=== PATIENT | female | born 1950 | race Caucasian/White ===

== ENCOUNTER 2017-04-08 08:28 | Emergency (ER) | payer OTHER, MEDICAID ==
[2017-04-08 08:34] VITALS: BP 147/71; BMI 27.3
--- NOTE | 2017-04-08 08:45 | DR.GENAD ---
HPI - PCP Primary Care Physician: none - HPI Comment HPI Comment: FELL LAST NIGHT OFF HER BED. MENTALLY CHALLENGE. DENIES FEVER. WAS NOT SICK LAST NIGHT. SLIGHT DIZZINESS WHEN SHE FELL. PAIN IN HER FOOT CAUSES PROBLEM WALKING. - Complaint/Symptoms Chief Complaint Doctors Comments: PAIN RIGHT LEG AND FOOT. FELL. SLIGHT DIZZINESS. Chief Complaint:: Right leg pain after a fall lastnight pt leg is red and swollen - Nurses notes reviewed Nurses Notes Review: Yes - Source History Provided: Patient - Mode of Arrival Mode of Arrival: EMS - Timing Onset of Chief Complaint: 04/07/17 Came on: Suddenly - Duration Duration: Constant Duration: Hours - Severity Severity: Moderate PMH - PMH Past Medical History: Yes Past Medical History: Anemia, Depression, GERD, Hypertension, Hyperthyroidism, Hypothyroidism Past Surgical History: Yes Surgical History: Hysterectomy, Mastectomy - Family History History of Family Medical Conditions: Yes Family Medical History: Cancer, Hypertension - Social History Does patient currently use any type of tobacco product: No Have you used tobacco products in the last 12 months: No Type of Tobacco Use: None Does any household member use tobacco: No Alcohol Use: None Do you use any recreational Drugs:: No Lives With: Family Lives Where: Home - infectious screening In the last 2 months have you had wt loss of >10#?: NO Have you had fever, night sweats or hemotysis?: No Have you traveled outside the country in the last 6 months?: No Isolation: Standard ROS - Review of Systems Constitutional: Weakness, Fatigue. negative: Chills, Fever, Loss of Appetite Eyes: No Symptoms Reported ENTM: Nose Congestion. negative: Ear Pain, Nose Discharge, Throat Pain Respiratoy: No Symptoms Reported, Non-Productive Cough, Short of Breath. negative: Productive Cough, Wheezing, Hemoptysis Cardiovascular: Edema. negative: Chest Pain Gastrointestinal/Abdominal: No Symptoms Reported. negative: Abdominal Pain, Diarrhea, Nausea, Vomiting Genitourinary: No Symptoms Reported. negative: Dysuria, Frequency, Hematuria Neurological: Headache, Weakness, Dizziness Musculoskeletal: Muscle Pain Integumentary: Bruises Hematologic/Lymphatic: No Symptoms Reported Endocrine: No Symptoms Reported All Other Systems: Reviewed and Negative PE - Vital Signs Vitals: Temperature 98 F Pulse Rate 94 Respiratory Rate 18 Blood Pressure [Right Arm] 132/63 Blood Pressure [Left Arm] 140/73 Blood Pressure 147/71 O2 Sat by Pulse Oximetry 99 - General Limitations: No Limitations General Appearance: Alert - Head Head Exam: Normal Inspection - Eyes Eye exam: Normal Appearance - ENT ENT Exam: Normal External Ear Exam External Ear Exam: Normal External Inspection TM/Canal Exam: Bilateral Normal Nose Exam: Normal Nose Exam Mouth Exam: Normal Inspection Throat Exam: Normal Inspection - Neck Neck Exam: Trachea Midline - Chest Chest Inspection: Symmetric Chest Wall Rise - Respiratory Respiratory Exam: Normal Lung Sounds Bilat Respiratory Exam: Bilateral Rhonchi, Lower Rhonchi - Cardiovascular Cardiovascular Exam: Regular Rate, Normal Rhythm, Normal Heart Sounds - Abdominal Exam Abdominal Exam: Normal Bowel Sounds, Soft. negative: Tenderness - Extremities Extremities Exam: Tenderness (RT FOOT AND ANKLE), Joint Swelling (RT ANKLE) MDM - Additional Information Additional Information Obtained From: Family - Differential Diagnosis Differential Diagnosis: CONTUSION, FRATURE, SPRAIN, DEHYDRATION, UTI, CHF, PNEUMOMIA Course - Treatment Treatment: SEE ORDERS - Education/Counseling Education/Counseling: Patient, Family, Education Educated On: Diagnosis, Needs for Follow Up ROR - Labs Reviewed Laboratory Results Reviewed?: Yes Result Diagrams: 04/08/17 09:20 04/08/17 09:20 Laboratory: WBC 6.2 X10^3/uL (3.6-10.0) 04/08/17 09:20 RBC 3.89 X10^6/uL (3.5-5.4) 04/08/17 09:20 Hgb 12.7 g/dL (12.0-16.0) 04/08/17 09:20 Hct 36.6 % (36.0-47.0) 04/08/17 09:20 MCV 94.1 fL (80.0-100.0) 04/08/17 09:20 MCH 32.5 pg (27.0-34.0) 04/08/17 09:20 MCHC 34.6 g/dL (33.0-35.0) 04/08/17 09:20 RDW 14.0 % (11.6-16.5) 04/08/17 09:20 Plt Count 183 X10^3/uL (150.0-450.0) 04/08/17 09:20 MPV 7.2 fL (7.4-11.0) L 04/08/17 09:20 Neut % 75.8 % (42.0-75.0) H 04/08/17 09:20 Lymph % 15.9 % (21.0-51.0) L 04/08/17 09:20 [place] % 6.2 % (0.0-13.0) 04/08/17 09:20 Eos % 1.1 % (0.9-2.9) 04/08/17 09:20 Baso % 1.0 % (0.2-1.0) 04/08/17 09:20 Neut # 4.7 x10^3/uL (2.2-4.8) 04/08/17 09:20 Lymph # 1.0 X10^3/uL (1.3-2.9) L 04/08/17 09:20 [place] # 0.4 x10^3/uL (0.3-0.8) 04/08/17 09:20 Eos # 0.1 x10^3/uL (0.0-0.2) 04/08/17 09:20 Baso # 0.1 X10^3/uL (0.0-0.1) 04/08/17 09:20 Absolute Nucleated RBC 0.0 /100WBC 04/08/17 09:20 Sodium 136 mmol/L (136-145) 04/08/17 09:20 Corrected Sodium TNP 04/08/17 09:20 Potassium 4.1 mmol/L (3.5-5.1) 04/08/17 09:20 Chloride 101 mmol/L (98-107) 04/08/17 09:20 Carbon Dioxide 23.7 mmol/L (21-32) 04/08/17 09:20 BUN 33 mg/dL (7-18) H 04/08/17 09:20 Creatinine 0.93 mg/dL (0.55-1.02) 04/08/17 09:20 Est GFR (MDRD) Af Amer > 60 (>60) 04/08/17 09:20 Est GFR (MDRD) Non-Af > 60 (>60) 04/08/17 09:20 Glucose 98 mg/dL (65-99) 04/08/17 09:20 Calcium 9.0 mg/dL (8.5-10.1) 04/08/17 09:20 Corrected Calcium TNP 04/08/17 09:20 Total Bilirubin 0.30 mg/dL (0.2-1.0) 04/08/17 09:20 AST 9 Units/L (15-37) L 04/08/17 09:20 ALT 15 Units/L (12-78) 04/08/17 09:20 Alkaline Phosphatase 54 Units/L (46-116) 04/08/17 09:20 Creatine Kinase 68 Units/L (26-192) 04/08/17 09:20 CK-MB (CK-2) 1.1 ng/mL (0-4.0) 04/08/17 09:20 CK/CKMB % Calc 1.6 % (<4) 04/08/17 09:20 Troponin I < 0.02 ng/mL (0-1.5) 04/08/17 09:20 Total Protein 6.7 g/dL (6.4-8.2) 04/08/17 09:20 Albumin 3.4 g/dL (3.4-5.0) 04/08/17 09:20 Globulin 3.3 g/dL (2.5-4.5) 04/08/17 09:20 Albumin/Globulin Ratio 1.0 Ratio (1.1-2.1) L 04/08/17 09:20 - XRAY XRAY Interpreted by: Radiologist XRAY Findings: REPORT DISCUSS WITH AND HER FAMILY. - EKG Rhythm: NSR (EKG NOTED.) - Diagnosis Discharge Problem: Metatarsal stress fracture of left foot, Left ankle sprain, Contusion of foot, left - Discharge Plan Disposition: 01 HOME, SELF-CARE Condition: Stable Prescriptions: Acetaminophen W/ Codeine [Tylenol/Codeine #3 300-30 mg] 1 tab PO Q12H PRN #10 tab PRN Reason: Pain - Follow ups/Referrals Follow ups/Referrals: NFD,None [Primary Care Provider] - 1 week VALENTINO ALBA [STAFF PHYSICIAN] - 04/09/17 - Instructions Instructions: Metatarsal Fracture, Foot Contusion, [id number], Ankle Sprain, [id number] Additional Instructions: RETURN TO ED IF WORSE. SEE ORTHOPEDIC DR TOMORROW AT 09:15 AM.
[2017-04-08 09:35] LABS: BASOPHILS # (AUTO) 0.1 X10^3/uL (0.0-0.1); EOSINOPHILS # (AUTO) 0.1 x10^3/uL (0.0-0.2); EOSINOPHILS % (AUTO) 1.1 % (0.9-2.9); HEMATOCRIT 36.6 % (36.0-47.0); HEMOGLOBIN 12.7 g/dL (12.0-16.0); LYMPHOCYTES % (AUTO) 15.9 % (21.0-51.0); MEAN CORPUSCULAR HEMOGLOBIN 32.5 pg (27.0-34.0); MEAN CORPUSCULAR HGB CONC 34.6 g/dL (33.0-35.0); MEAN CORPUSCULAR VOLUME 94.1 fL (80.0-100.0); MEAN PLATELET VOLUME 7.2 fL (7.4-11.0); MONOCYTES # (AUTO) 0.4 x10^3/uL (0.3-0.8); MONOCYTES % (AUTO) 6.2 % (0.0-13.0); NEUTROPHILS # (AUTO) 4.7 x10^3/uL (2.2-4.8); NEUTROPHILS % (AUTO) 75.8 % (42.0-75.0); PLATELET COUNT 183 X10^3/uL (150.0-450.0); RED BLOOD COUNT 3.89 X10^6/uL (3.5-5.4); WHITE BLOOD COUNT 6.2 X10^3/uL (3.6-10.0)
--- NOTE | 2017-04-08 09:43 | RAD ---
HISTORY: Chest pain Study: Single view of the chest. Comparison: 06/28/2012 Findings: The cardiomediastinal silhouette is normal. No focal consolidations, pleural effusions or pneumothor ax. Osseous structures demonstrate no acute abnormality. IMPRESSION: 1. No acute cardiopulmonary process. Reported By:
[2017-04-08 10:03] LABS: CKMB % 1.6 % (<4); CREATINE KINASE 68 Units/L (26-192); CREATINE KINASE MB 1.1 ng/mL (0-4.0); TROPONIN I < 0.02 ng/mL (0-1.5)
--- NOTE | 2017-04-08 10:24 | RAD ---
History: Right foot pain after fall last night Study: Three views right foot Findings: There are acute oblique fractures of the distal diaphyses of the 4th and 5th metatarsals w ithout significant displacement. There is severe dorsal soft tissue swelling. Impression: Acute 4th and 5th metatarsal fractures Reported By:
--- NOTE | 2017-04-08 10:26 | RAD ---
HISTORY: Fall with ankle pain Study: 3 views of the right ankle. Comparison: None Findings: No acute fracture or dislocation. The ankle mortise remains well aligned. Diffuse soft tissue swell ing of the lower extremity and ankle.. IMPRESSION: 1. Soft tissue swelling of the right ankle without underlying bony injury. Reported By:
[2017-04-08 11:42] LABS: ALANINE AMINOTRANSFERASE 15 Units/L (12-78); ALBUMIN 3.4 g/dL (3.4-5.0); ALKALINE PHOSPHATASE 54 Units/L (46-116); ASPARTATE AMINO TRANSFERASE 9 Units/L (15-37); BLOOD UREA NITROGEN 33 mg/dL (7-18); CARBON DIOXIDE 23.7 mmol/L (21-32); CHLORIDE 101 mmol/L (98-107); CREATININE 0.93 mg/dL (0.55-1.02); GLUCOSE 98 mg/dL (65-99); SODIUM 136 mmol/L (136-145); TOTAL PROTEIN 6.7 g/dL (6.4-8.2); eGFR BLACK RACES > 60 (>60); eGFR NON BLACK RACES > 60 (>60)
== END 2017-04-08 11:22 | disposition home or self-care (01) ==
LOC: ER 08:33
DX: S93.402A Sprain of unspecified ligament of left ankle, initial encounter (principal); S90.32XA Contusion of left foot, initial encounter; M84.375A Stress fracture, left foot, initial encounter for fracture; W19.XXXA Unspecified fall, initial encounter; Y92.9 Unspecified place or not applicable
CPT/HCPCS: 36415; 71010; 73610; 73630; 80053; 82550; 82553; 84484; 85025; 93005; 93010; 99283

== ENCOUNTER → 2017-06-02 | Outpatient (CLI) | payer OTHER, MEDICAID ==
--- NOTE | 2017-06-02 13:48 | RAD ---
Right foot, three views Indication: Fracture followup. Comparison: 04/08/17 Findings: The mildly displaced, oblique fractures through the distal 4th and 5th metatarsal shafts s how progressive healing without changed in alignment. Marked soft tissue swelling of the visualize d istal foreleg and dorsal foot are again noted, unchanged. No new osseous abnormality identified. Impression: Progressive healing without change in alignment or new osseous abnormality. Reported By:
== END ==
LOC: RAD 12:51
PROVIDERS: ATTEND Orthopaedic Surgery
DX: S92.341A Displaced fracture of fourth metatarsal bone, right foot, initial encounter for closed fracture (principal); X58.XXXA Exposure to other specified factors, initial encounter
CPT/HCPCS: 73630

== ENCOUNTER → 2017-12-03 | Outpatient (CLI) | payer OTHER, MEDICAID ==
[2017-12-03 13:39] LABS: BASOPHILS % (AUTO) 0.9 % (0.2-1.0); EOSINOPHILS # (AUTO) 0.1 x10^3/uL (0.0-0.2); HEMATOCRIT 37.1 % (36.0-47.0); HEMOGLOBIN 12.9 g/dL (12.0-16.0); LYMPHOCYTES # (AUTO) 1.1 X10^3/uL (1.3-2.9); LYMPHOCYTES % (AUTO) 21.5 % (21.0-51.0); MEAN CORPUSCULAR HEMOGLOBIN 32.7 pg (27.0-34.0); MEAN CORPUSCULAR HGB CONC 34.8 g/dL (33.0-35.0); MEAN CORPUSCULAR VOLUME 94.2 fL (80.0-100.0); MEAN PLATELET VOLUME 7.3 fL (7.4-11.0); MONOCYTES # (AUTO) 0.3 x10^3/uL (0.3-0.8); MONOCYTES % (AUTO) 5.1 % (0.0-13.0); NEUTROPHILS # (AUTO) 3.6 x10^3/uL (2.2-4.8); NEUTROPHILS % (AUTO) 70.5 % (42.0-75.0); PLATELET COUNT 182 X10^3/uL (150.0-450.0); RED BLOOD COUNT 3.93 X10^6/uL (3.5-5.4); RED CELL DISTRIBUTION WIDTH 14.2 % (11.6-16.5); WHITE BLOOD COUNT 5.1 X10^3/uL (3.6-10.0)
[2017-12-03 14:03] LABS: PLATELET MORPHOLOGY COMMENT NORMAL (NORMAL)
[2017-12-03 14:10] LABS: ALANINE AMINOTRANSFERASE 17 Units/L (12-78); ALKALINE PHOSPHATASE 46 Units/L (46-116); ASPARTATE AMINO TRANSFERASE 8 Units/L (15-37); BLOOD UREA NITROGEN 12 mg/dL (7-18); CALCIUM 8.7 mg/dL (8.5-10.1); CARBON DIOXIDE 28.9 mmol/L (21-32); CHLORIDE 94 mmol/L (98-107); COR CA(FOR HYPOALB) 9.5 mg/dL (8.5-10.1); CREATININE 0.72 mg/dL (0.55-1.02); SODIUM 129 mmol/L (136-145); TOTAL PROTEIN 6.1 g/dL (6.4-8.2); eGFR BLACK RACES > 60 (>60); eGFR NON BLACK RACES > 60 (>60)
== END ==
LOC: LAB 13:11
PROVIDERS: ATTEND Internal Medicine Medical Oncology
DX: C54.1 Malignant neoplasm of endometrium (principal)
CPT/HCPCS: 36415; 80053; 85025; 86316

== ENCOUNTER → 2018-03-28 | Outpatient (CLI) | payer OTHER, MEDICAID ==
[~2018-03-28] MED LIST: LEXISCAN IV ONE
--- NOTE | 2018-03-28 12:34 | VAS ---
HISTORY: Dizziness Study: Bilateral Carotid Ultrasound Comparison: None Technique: Multiple alexander scale and color flow Doppler images of the right and left carotid arterial s ystem were obtained. The vertebral arterial system was evaluated as well. Findings: Normal color flow Doppler is seen throughout the right and left carotid arterial system. There is ca lcified plaque present at the left carotid bulb. Peak systolic velocity in the right ICA is 91.7 cm/s ec. Peak systolic velocity in the left ICA is 86.7 cm/sec. The right ICA/CCA ratio is 2.16. The left ICA/CCA ratio is 1.7. The right and left vertebral arteries demonstrate antegrade flow. IMPRESSION: 1. Questionable moderate right ICA stenosis based on ICA/CCA ratio however the ICA velocities are nor mal. This could be further evaluated with CTA neck if clinically indicated. Calcified plaque is seen at the left carotid bulb without evidence of hemodynamically significant stenosis. Reported By:
== END ==
LOC: RAD 08:29
PROVIDERS: ATTEND Internal Medicine
DX: R06.02 Shortness of breath (principal); R42 Dizziness and giddiness; I10 Essential (primary) hypertension; R07.89 Other chest pain
CPT/HCPCS: 78452; 93017; 93880; A4222; A9502; J2785

== ENCOUNTER → 2018-03-31 | Outpatient (CLI) | payer OTHER, MEDICAID | LOC: RAD 13:05 | PROVIDERS: ATTEND Internal Medicine | DX: R06.02 Shortness of breath (principal); R42 Dizziness and giddiness; I10 Essential (primary) hypertension | CPT/HCPCS: 93306 ==

== ENCOUNTER 2018-04-11 09:07 | Inpatient (IN) | payer MEDICARE, MEDICAID ==
[2018-04-11 09:23] VITALS: BMI 34.3
--- NOTE | 2018-04-11 09:23 | DR.GENAD ---
HPI - PCP Primary Care Physician: Jose Manuel - Complaint/Symptoms Chief Complaint Doctors Comments: Patient awakened this AM with extreme weakness and shake. She denies fever, vomiting or diarrhea. Last week she was tested for CHF (stress test) results pending PMH - PMH Past Medical History: Anemia, Depression, GERD, Hypertension, Hyperthyroidism, Hypothyroidism Past Surgical History: Yes Surgical History: Hysterectomy, Mastectomy - Family History Family Medical History: Cancer, Hypertension - Social History Do you use any recreational Drugs:: No ROS - Review of Systems Eyes: No Symptoms Reported ENTM: No Symptoms Reported Respiratoy: No Symptoms Reported Cardiovascular: No Symptoms Reported Gastrointestinal/Abdominal: No Symptoms Reported Genitourinary: No Symptoms Reported Neurological: No Symptoms Reported Musculoskeletal: No Symptoms Reported Integumentary: No Symptoms Reported Hematologic/Lymphatic: No Symptoms Reported Endocrine: No Symptoms Reported Psychiatric: No Symptoms Reported All Other Systems: Reviewed and Negative PE - Vital Signs Vitals: Temperature 98.9 F Pulse Rate 95 Respiratory Rate 18 Blood Pressure [Right Arm] 132/63 Blood Pressure [Left Arm] 140/73 Blood Pressure 126/71 O2 Sat by Pulse Oximetry 100 - General Limitations: No Limitations General Appearance: Alert, In No Apparent Distress - Head Head Exam: Normal Inspection, Atraumatic - Eyes Eye exam: Normal Appearance, PERRL, EOMI - ENT ENT Exam: Normal Exam, Normal Oropharynx External Ear Exam: Normal External Inspection TM/Canal Exam: Bilateral Normal Nose Exam: Normal Nose Exam Mouth Exam: Normal Inspection Throat Exam: Normal Inspection - Neck Neck Exam: Normal Inspection, Full ROM - Chest Chest Inspection: Normal Inspection - Respiratory Respiratory Exam: Normal Lung Sounds Bilat Respiratory Exam: Bilateral Clear to Auscultation - Cardiovascular Cardiovascular Exam: Regular Rate, Normal Rhythm - Abdominal Exam Abdominal Exam: Normal Inspection Abdominal Tenderness: negative: RUQ, RLQ, LUQ, LLQ, Epigastrium, Suprapubic, Diffuse, Mild, Moderate, Severe, Other - Extremities Extremities Exam: Full ROM, Edema (LLE) - Back Back Exam: Normal Inspection - Neurologic Neurological Exam: Alert, Oriented X3, CN II-XII Intact - Psychiatric Psychiatric Exam: Normal Affect - Skin Skin Exam: Warm, Dry, Intact Course - Education/Counseling Educated On: Treatment, Diagnosis ROR - Labs Reviewed Result Diagrams: 04/11/18 10:30 04/11/18 10:30 Laboratory: WBC 8.5 X10^3/uL (3.6-10.0) 04/11/18 10:30 RBC 4.16 X10^6/uL (3.5-5.4) 04/11/18 10:30 Hgb 13.6 g/dL (12.0-16.0) 04/11/18 10:30 Hct 38.9 % (36.0-47.0) 04/11/18 10:30 MCV 93.5 fL (80.0-100.0) 04/11/18 10:30 MCH 32.7 pg (27.0-34.0) 04/11/18 10:30 MCHC 35.0 g/dL (33.0-35.0) 04/11/18 10:30 RDW 13.5 % (11.6-16.5) 04/11/18 10:30 Plt Count 189 X10^3/uL (150.0-450.0) 04/11/18 10:30 Plt Count Comment Adequate (ADEQUATE) 04/11/18 10:30 MPV 7.7 fL (7.4-11.0) 04/11/18 10:30 Neut % (Auto) 90.5 % (42.0-75.0) H 04/11/18 10:30 Lymph % (Auto) 4.8 % (21.0-51.0) L 04/11/18 10:30 [place] % (Auto) 3.5 % (0.0-13.0) 04/11/18 10:30 Eos % (Auto) 1.0 % (0.9-2.9) 04/11/18 10:30 Baso % (Auto) 0.2 % (0.2-1.0) 04/11/18 10:30 Neut # (Auto) 7.7 x10^3/uL (2.2-4.8) H 04/11/18 10:30 Lymph # (Auto) 0.4 X10^3/uL (1.3-2.9) L 04/11/18 10:30 [place] # (Auto) 0.3 x10^3/uL (0.3-0.8) 04/11/18 10:30 Eos # (Auto) 0.1 x10^3/uL (0.0-0.2) 04/11/18 10:30 Baso # (Auto) 0.0 X10^3/uL (0.0-0.1) 04/11/18 10:30 Absolute Nucleated RBC 0.0 /100WBC 04/11/18 10:30 Total Counted 100 04/11/18 10:30 Neutrophils % (Manual) 78 % (39-76) H 04/11/18 10:30 Band Neutrophils % 14 % (0-10) H 04/11/18 10:30 Lymphocytes % (Manual) 2 % (13-43) L 04/11/18 10:30 Monocytes % (Manual) 5 % (4-9) 04/11/18 10:30 Eosinophils % (Manual) 1 % (0-6) 04/11/18 10:30 Plt Morphology Comment Normal (NORMAL) 04/11/18 10:30 RBC Morphology Normal (NORMAL) 04/11/18 10:30 Sodium 126 mmol/L (136-145) L 04/11/18 10:30 Corrected Sodium 126 mmol/L (136-145) L 04/11/18 10:30 Potassium 4.1 mmol/L (3.5-5.1) 04/11/18 10:30 Chloride 92 mmol/L (98-107) L 04/11/18 10:30 Carbon Dioxide 22.0 mmol/L (21-32) 04/11/18 10:30 BUN 14 mg/dL (7-18) 04/11/18 10:30 Creatinine 0.88 mg/dL (0.55-1.02) 04/11/18 10:30 Est GFR (MDRD) Af Amer > 60 (>60) 04/11/18 10:30 Est GFR (MDRD) Non-Af > 60 (>60) 04/11/18 10:30 Glucose 114 mg/dL (65-99) H 04/11/18 10:30 Calcium 8.3 mg/dL (8.5-10.1) L 04/11/18 10:30 Corrected Calcium 8.9 mg/dL (8.5-10.1) 04/11/18 10:30 Total Bilirubin 0.40 mg/dL (0.2-1.0) 04/11/18 10:30 AST 9 Units/L (15-37) L 04/11/18 10:30 ALT 17 Units/L (12-78) 04/11/18 10:30 Alkaline Phosphatase 54 Units/L (46-116) 04/11/18 10:30 Creatine Kinase 51 Units/L (26-192) 04/11/18 10:30 CK-MB (CK-2) < 1.0 ng/mL (0-4.0) 04/11/18 10:30 CK/CKMB % Calc 2.0 % (<4) 04/11/18 10:30 Troponin I < 0.02 ng/mL (0-1.5) 04/11/18 10:30 Total Protein 6.8 g/dL (6.4-8.2) 04/11/18 10:30 Albumin 3.3 g/dL (3.4-5.0) L 04/11/18 10:30 Globulin 3.5 g/dL (2.5-4.5) 04/11/18 10:30 Albumin/Globulin Ratio 0.9 Ratio (1.1-2.1) L 04/11/18 10:30 - XRAY XRAY Interpreted by: Radiologist (Ct Brain:No acute intracranail abnormality is seen on this exam. Age related atrophic changes and patchy areas of chronic small vessel ischemia in a periventricular white matter distributin. 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 Chest: Comparison 04/08/2017: No radiographic evidence of acute cardiopulmonary disease or significant change is noted when compared to the prior examination.) - Diagnosis Discharge Problem: Hyponatremia, Bandemia without diagnosis of specific infection, Rule Out Sepsis - Discharge Plan Condition: Stable - Follow ups/Referrals Follow ups/Referrals: NFD,None [Primary Care Provider] - 3 days - Instructions
--- NOTE | 2018-04-11 10:16 | RAD ---
HISTORY: Altered mental status Study: AP portable chest Comparison: 04/08/2017 Findings: The lungs are clear. The heart size is normal. No acute bony abnormalities are identified. IMPRESSION: 1. No radiographic evidence of acute cardiopulmonary disease or significant change is noted when com pared to the prior examination. Reported By:
--- NOTE | 2018-04-11 10:23 | CT ---
Exam: Head CT without contrast History: 67-year-old female with confusion. Comparison: None Technique: Axial imaging was performed from the vertex to the base the skull without intravenous cont rast being administered. Subsequently coronal and sagittal reformations were generated. Automated exp osure control techniques were used with this exam. Findings: Generalized age related atrophic changes are present. However there is no evidence of intracranial he morrhage, extracerebral fluid collections, or intracranial mass. Ventricles are symmetric in size and position with no mass effect seen. Patchy low density is present in a periventricular white matter d istribution. These findings most likely reflect chronic underlying small vessel ischemic change. Visualized aspect of the paranasal sinuses and mastoid air cells are clear. A 1.5 x 1.2 cm sharply ma rginated partially calcified structure is seen adjacent to the medial wall of the left maxillary sinu s. Etiology of this is uncertain though it likely represents a focal area of fibrous dysplasia. Impression: 1. No acute intracranial abnormality is seen on this exam. 2. Age related atrophic changes and patchy areas of chronic small vessel ischemia in a periventricula r white matter distribution. 3. 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
[2018-04-11 10:43] LABS: BASOPHILS % (AUTO) 0.2 % (0.2-1.0); EOSINOPHILS # (AUTO) 0.1 x10^3/uL (0.0-0.2); HEMATOCRIT 38.9 % (36.0-47.0); HEMOGLOBIN 13.6 g/dL (12.0-16.0); LYMPHOCYTES # (AUTO) 0.4 X10^3/uL (1.3-2.9); LYMPHOCYTES % (AUTO) 4.8 % (21.0-51.0); MEAN CORPUSCULAR HEMOGLOBIN 32.7 pg (27.0-34.0); MEAN CORPUSCULAR VOLUME 93.5 fL (80.0-100.0); MEAN PLATELET VOLUME 7.7 fL (7.4-11.0); MONOCYTES # (AUTO) 0.3 x10^3/uL (0.3-0.8); MONOCYTES % (AUTO) 3.5 % (0.0-13.0); NEUTROPHILS # (AUTO) 7.7 x10^3/uL (2.2-4.8); NEUTROPHILS % (AUTO) 90.5 % (42.0-75.0); PLATELET COUNT 189 X10^3/uL (150.0-450.0); RED BLOOD COUNT 4.16 X10^6/uL (3.5-5.4); RED CELL DISTRIBUTION WIDTH 13.5 % (11.6-16.5); WHITE BLOOD COUNT 8.5 X10^3/uL (3.6-10.0)
[2018-04-11 10:50] LABS: BLOOD UREA NITROGEN 14 mg/dL (7-18); CALCIUM 8.3 mg/dL (8.5-10.1); CHLORIDE 92 mmol/L (98-107); CREATININE 0.88 mg/dL (0.55-1.02); eGFR BLACK RACES > 60 (>60); eGFR NON BLACK RACES > 60 (>60)
[2018-04-11 10:55] LABS: ALANINE AMINOTRANSFERASE 17 Units/L (12-78); ALBUMIN 3.3 g/dL (3.4-5.0); ALKALINE PHOSPHATASE 54 Units/L (46-116); ASPARTATE AMINO TRANSFERASE 9 Units/L (15-37); COR CA(FOR HYPOALB) 8.9 mg/dL (8.5-10.1); TOTAL PROTEIN 6.8 g/dL (6.4-8.2)
[2018-04-11 10:57] LABS: COR NA(FOR HYPERGLY) 126 mmol/L (136-145); SODIUM 126 mmol/L (136-145)
[2018-04-11 10:59] LABS: BAND NEUTROPHILS % 14 % (0-10); PLATELET MORPHOLOGY COMMENT NORMAL (NORMAL)
[2018-04-11] MEDS ORDERED: NS 1000 ML 1,000 ML ONE (11:00)
[2018-04-11 11:02] LABS: CREATINE KINASE 51 Units/L (26-192); CREATINE KINASE MB < 1.0 ng/mL (0-4.0); TROPONIN I < 0.02 ng/mL (0-1.5)
[2018-04-11] MEDS: NS 1000 ML 1,000 ML IV SCH ×2 (11:31→23:51)
[2018-04-11 12:07] LABS: BILIRUBIN,URINE NEGATIVE (NEGATIVE); BLOOD/HEMOGLOBIN,URINE 2+ (NEGATIVE); GLUCOSE, URINE NEGATIVE (NEGATIVE); KETONES,URINE NEGATIVE (NEGATIVE); LEUKOCYTE ESTERASE ,URINE 1+ (NEGATIVE); NITRITES,URINE NEGATIVE (NEGATIVE); PROTEIN,URINE NEGATIVE (NEGATIVE); UROBILINOGEN,URINE NORMAL (NORMAL)
[2018-04-11 12:16] LABS: APPEARANCE,URINE CLEAR (CLEAR); COLOR,URINE YELLOW (YELLOW)
[2018-04-11 12:17] LABS: BACTERIA,URINE TRACE /HPF (NEGATIVE); HYALINE CASTS, URINE FEW /LPF (NEGATIVE); RBC,URINE 0-2 /HPF (NONE SEEN); SQUAMOUS EPITHELIAL CELL,UR RARE /HPF (NEGATIVE)
[2018-04-11] MEDS ORDERED: NS 250 ML IV 250 ML IV ONE (13:05)
[2018-04-11 13:08] LABS: AMYLASE 37 Units/L (25-115); LIPASE 64 Units/L (73-393)
[2018-04-11 13:17] LABS: ABG ALLEN TEST POS; ABG BASE EXCESS 1.3 mmol/L (-2.0-2.0); ABG HCO3 24.9 mmol/L (22-26)
[2018-04-11] MEDS: INDERAL TAB 10 MG PO SCH ×2 (13:18→21:54)
[2018-04-11] MEDS: SOLU-Cortef INJ IVP SCH ×2 (13:20→21:05)
[2018-04-11] MEDS: LEVAQUIN TAB 750 MG PO SCH (13:20)
[2018-04-11] MEDS: ZOSYN VIAL 4.5 GM 4.5 GM in NS 100 ML IV + SPIKE MINIBAG* 100 ML IV SCH ×2 (13:21→21:55)
--- NOTE | 2018-04-11 20:55 | DR.H&P ---
H&P - History & Physical for Day of: H&P Date: 04/11/18 - Chief Complaint Chief Complaint: WEAKNESS, CONFUSION, SHAKING - Allergies Allergies/Adverse Reactions: Allergies Allergy/AdvReac Type Severity Reaction Status Date / Time simvastatin Allergy Verified 04/11/18 10:07 - History of Present Illness History of Present Illness: IS A 67 YEAR OLD PATIENT OF OURS WHO PRESENTED TO THE EMERGENCY ROOM WITH COMPLAINTS OF SEVERE WEAKNESS, SHAKING, AND CONFUSION. FAMILY REPORTS THAT PATIENTS SYMPTOMS STARTED AROUND A WEEK AGO AND HAVE PROGRESSIVELY GOTTEN WORSE. SHE DENIES FEVER, VOMITING, OR DIARRHEA. SHE ALSO DENIES PAIN OF ANY KIND. ON ARRIVAL, VITALS WERE 98.9-95-18-100%-126/ 71. LABS WERE OBTAINED. ABNORMAL LAB VALUES INCLUDE THE FOLLOWING: neut % 90.5, lymph % 4.8, neut # 7.7, SODIUM 126, CHLORIDE 92, GLUCOSE 114, CALCIUM 8.3, AST 9, ALBUMIN 3.3. URINALYSIS REVEALED WBC 3-5, RBC 0-2, LEUKOCYTES 1+, BACTERIA TRACE. AN ABG WAS OBTAINED AND REVEALED PH 7.460, PC02 35, P02 62.0, HC03 24.9. CARDIAC ENZYMES WITHIN NORMAL LIMITS. EKG REVEALED SINUS RHYTHM WITH HR 87. A CHEST XRAY WAS OBTAINED AND REVELAED NO RADIOGRAPHIC EVIDENCE OF ACUTE CARDIOPULMONARY DISEASE OR SIGNIFICANT CHANGE NOTED WHEN COMPARED TO THE PRIOR EXAMINATION. A BRAIN CT WAS OBTAINED AND REVEALED: No acute intracranial abnormality is seen on this exam. Age related atrophic changes and patchy areas of chronic small vessel ischemia in a periventricular white matter distribution. 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 PATIENT WAS ADMITTED TO THE HOSPITAL FOR FURTHER EVALUATION AND TREATMENT OF HYPONATREMIA, BANDEMIA, WEAKNESS, AND R/O SEPSIS. SHE WAS STARTED ON NORMAL SALINE AT 80ML/HR, ZOSYN 4.5GM IV TID, SOLU-CORTEF 50MG IV Q6H AND LEVAQUIN 750MG DAILY. HOME MEDICATIONS WERE RESUMED. WE PLAN TO FOLLOW UP WITH AM LABS AND CONTINUE TO MONITOR PATIENT. - Past Medical History Past Medical History: Anemia, Depression, GERD, Hypertension, Hyperthyroidism, Hypothyroidism - Past Surgical History Surgical History: Hysterectomy, Mastectomy - Family History Family Medical History: Cancer, Hypertension - Social History Does patient currently use any type of tobacco product: No Have you used tobacco products in the last 12 months: No Type of Tobacco Use: None Does any household member use tobacco: No Alcohol Use: None Drug Use: None - Medications Home Medications: Polyethylene Glycol Pwd Btl [MIRALAX. (255 GM BOTTLE) *] 17 g PO DAILY 04/11/18 [History Confirmed 04/11/18] Trazodone HCl 100 mg PO HS 04/11/18 [History Confirmed 04/11/18] - Review of Systems Constitutional: Weakness, Malaise. denies: Fever, Chills, Sweats Eyes: No Symptoms Reported ENT: No Symptoms Reported Respiratory: No Symptoms Reported Cardiovascular: No Symptoms Reported Gastrointestinal: No Symptoms Reported Genitourinary: No Symptoms Reported Musculoskeletal: No Symptoms Reported Skin: No Symptoms Reported Neurological: Weakness, Confusion - Physical Exam Vital Signs: Temperature 98.3 F Pulse Rate [Bilateral Radial] 91 Pulse Rate 95 Respiratory Rate 18 Blood Pressure [Right Arm] 118/61 Blood Pressure [Left Arm] 140/73 Blood Pressure 126/71 O2 Sat by Pulse Oximetry 96 Oriented: Normal, Other (INTERMITTENT CONFUSION ) Eyes: Normal Ear: Normal Nose: Normal Throat: Normal Respiratory: Clear Throughout Cardiovascular: Normal : Normal Auscultation: Bowel Sounds: Normal Palpation: Normal Tenderness: Normal Skin: Normal Musculoskeletal: Normal Psychiatric: Normal Mood Description: Calm Affect: Normal Speech Pattern: Clear - Assessment/Plan (1) Hyponatremia Status: Acute Plan: ADMIT, NORMAL SALINE AT 80ML/HR, CONTINUE TO MONITOR (2) Bandemia without diagnosis of specific infection Status: Acute Plan: ZOSYN IV, LEVAQUIN IV, BLOOD CULTURES, CONTINUE TO MONITOR (3) Generalized weakness Status: Acute
[2018-04-11] MEDS ORDERED: ARIPIPRAZOLE PO SCH (21:00)
[2018-04-11] MEDS ORDERED: PATIENT'S HOME MEDICATION (Trazodone Hcl [Trazodone Hcl] 100 MG) PO SCH (21:00)
[2018-04-11] MEDS: ABILIFY PO SCH (21:05)
[2018-04-11] MEDS: DEPAKOTE ER PO SCH (21:06)
[2018-04-11] MEDS: DESYREL PO SCH (21:06)
[2018-04-11] MEDS: TYLENOL #3 TAB (W/CODEINE) PO PRN (23:25)
[2018-04-12] MEDS: SOLU-Cortef INJ IVP SCH ×4 (01:04→20:36)
[2018-04-12] MEDS: NS 1000 ML 1,000 ML IV SCH ×2 (01:04→03:00)
[2018-04-12] MEDS: ZOSYN VIAL 4.5 GM 4.5 GM in NS 100 ML IV + SPIKE MINIBAG* 100 ML IV SCH ×3 (05:52→22:00)
[2018-04-12] MEDS: INDERAL TAB 10 MG PO SCH ×3 (05:52→22:00)
[2018-04-12 06:05] LABS: ALANINE AMINOTRANSFERASE 14 Units/L (12-78); ALBUMIN 2.6 g/dL (3.4-5.0); ALKALINE PHOSPHATASE 41 Units/L (46-116); ASPARTATE AMINO TRANSFERASE < 6 Units/L (15-37); BLOOD UREA NITROGEN 14 mg/dL (7-18); CALCIUM 7.6 mg/dL (8.5-10.1); CARBON DIOXIDE 25.8 mmol/L (21-32); CHLORIDE 92 mmol/L (98-107); COR NA(FOR HYPERGLY) 127 mmol/L (136-145); CREATININE 0.85 mg/dL (0.55-1.02); PHOSPHORUS 3.4 mg/dL (2.6-4.7); SODIUM 126 mmol/L (136-145); TOTAL PROTEIN 5.8 g/dL (6.4-8.2); eGFR BLACK RACES > 60 (>60); eGFR NON BLACK RACES > 60 (>60)
[2018-04-12 06:06] LABS: COR CA(FOR HYPOALB) 8.7 mg/dL (8.5-10.1)
[2018-04-12 06:20] LABS: BASOPHILS % (AUTO) 0.2 % (0.2-1.0); HEMATOCRIT 33.9 % (36.0-47.0); HEMOGLOBIN 12.1 g/dL (12.0-16.0); LYMPHOCYTES # (AUTO) 0.5 X10^3/uL (1.3-2.9); LYMPHOCYTES % (AUTO) 7.1 % (21.0-51.0); MEAN CORPUSCULAR HEMOGLOBIN 33.2 pg (27.0-34.0); MEAN CORPUSCULAR HGB CONC 35.8 g/dL (33.0-35.0); MEAN CORPUSCULAR VOLUME 92.6 fL (80.0-100.0); MEAN PLATELET VOLUME 7.8 fL (7.4-11.0); MONOCYTES # (AUTO) 0.2 x10^3/uL (0.3-0.8); MONOCYTES % (AUTO) 2.2 % (0.0-13.0); NEUTROPHILS # (AUTO) 6.7 x10^3/uL (2.2-4.8); NEUTROPHILS % (AUTO) 90.5 % (42.0-75.0); PLATELET COUNT 153 X10^3/uL (150.0-450.0); RED BLOOD COUNT 3.66 X10^6/uL (3.5-5.4); RED CELL DISTRIBUTION WIDTH 13.4 % (11.6-16.5); WHITE BLOOD COUNT 7.4 X10^3/uL (3.6-10.0)
[2018-04-12 06:43] LABS: PLATELET MORPHOLOGY COMMENT NORMAL (NORMAL)
[2018-04-12] MEDS ORDERED: LEXAPRO ONE (07:14)
[2018-04-12] MEDS: DEPAKOTE ER PO SCH ×2 (08:15→20:34)
[2018-04-12] MEDS: PriLOSEC PO SCH (08:15)
[2018-04-12] MEDS ORDERED: OMEPRAZOLE PO SCH (09:00)
[2018-04-12] MEDS ORDERED: PATIENT'S HOME MEDICATION (Losartan/Hydrochlorothiazide [Hyzaar 100-25 Tablet] 1 TAB) PO SCH (09:00)
[2018-04-12] MEDS ORDERED: LOVENOX INJ 30 MG SYR SC ONE (09:54)
[2018-04-12] MEDS: WELLBUTRIN XL 300 MG (DAILY) PO SCH (09:57)
[2018-04-12] MEDS: LEXAPRO PO SCH (09:58)
[2018-04-12] MEDS: ZANTAC PO SCH (09:58)
[2018-04-12] MEDS: HYZAAR 50/12.5 MG PO SCH (09:58)
[2018-04-12] MEDS: SYNTHROID 50 mcg TAB PO SCH (09:58)
[2018-04-12] MEDS: LOVENOX INJ 30 MG SYR SC SCH (10:00)
[2018-04-12] MEDS: LEVAQUIN TAB 750 MG PO SCH ×2 (10:02→13:52)
--- NOTE | 2018-04-12 18:24 | PCM.PROG ---
Progress Note - Progress Note for Day of Date: 04/12/18 - Subjective Subjective: WAS ADMITTED FOR HYPONATREMIA, GENERALIZED WEAKNESS, AND BANDEMIA. TODAY, SHE IS ALERT AND ORIENTED, LYING IN BED ON MORNING ROUNDS. SHE CONTINUES WITH COMPLAINTS OF GENERALIZED WEAKNESS. ON EXAMINATION, HEART IS REGULAR IN RATE AND RHYTHM. BILATERAL LUNGS ARE CLEAR TO AUSCULTATION. ABDOMEN IS ROUND, SOFT, AND NON-TENDER WITH NORMAL BOWEL SOUNDS NOTED IN ALL QUADRANS. HER VITALS THIS MORNING ARE 98.0-77-18-99%-147/69. ABNORMAL LAB VALUES INCLUDE THE FOLLOWING: HCT 33.9, SODIUM 126, CHLORIDE 92, GLUCOSE 137, CALCIUM 7.6, AST <6, ALK PHOS 41, TOTAL PROTEIN 5.8, ALBUMIN 2.6. BLOOD CULTURES ARE PENDING. SHE IS CURRENTLY RECEIVING IV FLUIDS AND IV ANTIBIOTICS. WE WILL CONTINUE WITH CURRENT PLAN OF CARE TODAY. OTHERWISE, WE WILL FOLLOW UP WITH AM LABS AND CONTINUE TO MONITOR PATIENT. - Past Medical Family Social History Past Med/Fam/Surg Hx: No changes since H&P Allergies: Allergies simvastatin Allergy (Verified 04/11/18 10:07) - Review of Systems ROS: No change since H&P - Vital Signs and I&O's Vital Signs: Temperature 98.1 F Pulse Rate [Bilateral Radial] 80 Pulse Rate 95 Respiratory Rate 12 Blood Pressure [Right Arm] 161/69 Blood Pressure [Left Arm] 140/73 Blood Pressure 126/71 O2 Sat by Pulse Oximetry 100 Intake and Output: Intake & Output 04/10/18 04/11/18 04/12/18 04/13/18 11:59 11:59 11:59 11:59 Intake Total 2952 1680 Output Total 900 1200 Balance 2052 480 - Physical Exam Oriented: Normal, Other (INTERMITTENT CONFUSION ) Eyes: Normal Ear: Normal Nose: Normal Throat: Normal Respiratory: Normal Cardiovascular: Normal : Normal Auscultation: Bowel Sounds: Normal Palpation: Normal Tenderness: Normal Skin: Normal Musculoskeletal: Normal Psychiatric: Normal Mood Description: Calm Affect: Normal Speech Pattern: Clear - Laboratory and Diagnostics Result Diagrams: 04/12/18 05:20 04/12/18 05:20 Labs: Laboratory WBC 7.4 X10^3/uL (3.6-10.0) 04/12/18 05:20 RBC 3.66 X10^6/uL (3.5-5.4) 04/12/18 05:20 Hgb 12.1 g/dL (12.0-16.0) 04/12/18 05:20 Hct 33.9 % (36.0-47.0) L 04/12/18 05:20 MCV 92.6 fL (80.0-100.0) 04/12/18 05:20 MCH 33.2 pg (27.0-34.0) 04/12/18 05:20 MCHC 35.8 g/dL (33.0-35.0) H 04/12/18 05:20 RDW 13.4 % (11.6-16.5) 04/12/18 05:20 Plt Count 153 X10^3/uL (150.0-450.0) 04/12/18 05:20 Plt Count Comment Adequate (ADEQUATE) 04/12/18 05:20 MPV 7.8 fL (7.4-11.0) 04/12/18 05:20 Neut % (Auto) 90.5 % (42.0-75.0) H 04/12/18 05:20 Lymph % (Auto) 7.1 % (21.0-51.0) L 04/12/18 05:20 [place] % (Auto) 2.2 % (0.0-13.0) 04/12/18 05:20 Eos % (Auto) 0.0 % (0.9-2.9) L 04/12/18 05:20 Baso % (Auto) 0.2 % (0.2-1.0) 04/12/18 05:20 Neut # (Auto) 6.7 x10^3/uL (2.2-4.8) H 04/12/18 05:20 Lymph # (Auto) 0.5 X10^3/uL (1.3-2.9) L 04/12/18 05:20 [place] # (Auto) 0.2 x10^3/uL (0.3-0.8) L 04/12/18 05:20 Eos # (Auto) 0.0 x10^3/uL (0.0-0.2) 04/12/18 05:20 Baso # (Auto) 0.0 X10^3/uL (0.0-0.1) 04/12/18 05:20 Absolute Nucleated RBC 0.0 /100WBC 04/12/18 05:20 Total Counted 100 04/12/18 05:20 Neutrophils % (Manual) 88 % (39-76) H 04/12/18 05:20 Band Neutrophils % 14 % (0-10) H 04/11/18 10:30 Lymphocytes % (Manual) 9 % (13-43) L 04/12/18 05:20 Monocytes % (Manual) 1 % (4-9) L 04/12/18 05:20 Eosinophils % (Manual) 2 % (0-6) 04/12/18 05:20 Plt Morphology Comment Normal (NORMAL) 04/12/18 05:20 RBC Morphology Normal (NORMAL) 04/12/18 05:20 INR Target Range - 04/11/18 12:49 INR 0.98 (0.8-1.3) 04/11/18 12:49 APTT 27.6 SECONDS (22.9-36.5) 04/11/18 12:49 PTT Comment - 04/11/18 12:49 Sample Site Rra 04/11/18 13:05 ABG pH 7.460 (7.35-7.45) H 04/11/18 13:05 ABG pCO2 35.0 mmHg (35.0-45.0) 04/11/18 13:05 ABG pO2 62.0 mmHg (80.0-100.0) L 04/11/18 13:05 ABG HCO3 24.9 mmol/L (22-26) 04/11/18 13:05 ABG O2 Saturation 93.0 % (90-100) 04/11/18 13:05 ABG Base Excess 1.3 mmol/L (-2.0-2.0) 04/11/18 13:05 Adan Test Pos 04/11/18 13:05 A-a Gradient 44.0 mmHg 04/11/18 13:05 FiO2 21.000 04/11/18 13:05 Blood Gas Comments Aisha well cs 04/11/18 13:05 Sodium 126 mmol/L (136-145) L 04/12/18 05:20 Corrected Sodium 127 mmol/L (136-145) L 04/12/18 05:20 Potassium 3.8 mmol/L (3.5-5.1) 04/12/18 05:20 Chloride 92 mmol/L (98-107) L 04/12/18 05:20 Carbon Dioxide 25.8 mmol/L (21-32) 04/12/18 05:20 BUN 14 mg/dL (7-18) 04/12/18 05:20 Creatinine 0.85 mg/dL (0.55-1.02) 04/12/18 05:20 Est GFR (MDRD) Af Amer > 60 (>60) 04/12/18 05:20 Est GFR (MDRD) Non-Af > 60 (>60) 04/12/18 05:20 Glucose 137 mg/dL (65-99) H 04/12/18 05:20 Lactic Acid 1.1 mmol/L (0.4-2.0) 04/12/18 05:20 Calcium 7.6 mg/dL (8.5-10.1) L 04/12/18 05:20 Corrected Calcium 8.7 mg/dL (8.5-10.1) 04/12/18 05:20 Phosphorus 3.4 mg/dL (2.6-4.7) 04/12/18 05:20 Total Bilirubin 0.50 mg/dL (0.2-1.0) 04/12/18 05:20 AST < 6 Units/L (15-37) L 04/12/18 05:20 ALT 14 Units/L (12-78) 04/12/18 05:20 Alkaline Phosphatase 41 Units/L (46-116) L 04/12/18 05:20 Lactate Dehydrogenase 122 Units/L (81-234) 04/11/18 11:30 Creatine Kinase 51 Units/L (26-192) 04/11/18 10:30 CK-MB (CK-2) < 1.0 ng/mL (0-4.0) 04/11/18 10:30 CK/CKMB % Calc 2.0 % (<4) 04/11/18 10:30 Troponin I < 0.02 ng/mL (0-1.5) 04/11/18 10:30 Total Protein 5.8 g/dL (6.4-8.2) L 04/12/18 05:20 Albumin 2.6 g/dL (3.4-5.0) L 04/12/18 05:20 Globulin 3.2 g/dL (2.5-4.5) 04/12/18 05:20 Albumin/Globulin Ratio 0.8 Ratio (1.1-2.1) L 04/12/18 05:20 Amylase 37 Units/L (25-115) 04/11/18 10:30 Lipase 64 Units/L (73-393) L 04/11/18 10:30 Specimen Type Clean catch urine 04/11/18 11:45 Urine Color Yellow (YELLOW) 04/11/18 11:45 Urine Appearance Clear (CLEAR) 04/11/18 11:45 Urine pH 8.0 (5.0 - 8.0) 04/11/18 11:45 Ur Specific [place] 1.010 (1.000-1.030) 04/11/18 11:45 Urine Protein Negative (NEGATIVE) 04/11/18 11:45 Urine Glucose (UA) Negative (NEGATIVE) 04/11/18 11:45 Urine Ketones Negative (NEGATIVE) 04/11/18 11:45 Urine Occult Blood 2+ (NEGATIVE) 04/11/18 11:45 Urine Nitrite Negative (NEGATIVE) 04/11/18 11:45 Urine Bilirubin Negative (NEGATIVE) 04/11/18 11:45 Urine Urobilinogen Normal (NORMAL) 04/11/18 11:45 Ur Leukocyte Esterase 1+ (NEGATIVE) 04/11/18 11:45 Urine RBC 0-2 /HPF (NONE SEEN) 04/11/18 11:45 Urine WBC 3-5 /HPF (NONE SEEN) 04/11/18 11:45 Ur Squamous Epith Cells Rare /HPF (NEGATIVE) 04/11/18 11:45 Urine Bacteria Trace /HPF (NEGATIVE) 04/11/18 11:45 Hyaline Casts Few /LPF (NEGATIVE) 04/11/18 11:45 Ur Culture Indicated? No/not indicated 04/11/18 11:45 - Plan (1) Hyponatremia Status: Acute Plan: NORMAL SALINE AT 80ML/HR, CONTINUE TO MONITOR (2) Bandemia without diagnosis of specific infection Status: Acute Plan: ZOSYN IV, LEVAQUIN IV, BLOOD CULTURES, CONTINUE TO MONITOR (3) Generalized weakness Status: Acute
[2018-04-12] MEDS: MIRALAX POWDER (1 DOSE 17GM) PO SCH ×2 (20:30→20:33)
[2018-04-12] MEDS: ABILIFY PO SCH (20:33)
[2018-04-12] MEDS: TYLENOL #3 TAB (W/CODEINE) PO PRN (20:34)
[2018-04-12] MEDS: DESYREL PO SCH (20:34)
[2018-04-13] MEDS: SOLU-Cortef INJ IVP SCH ×4 (01:15→19:55)
[2018-04-13] MEDS: NS 1000 ML 1,000 ML IV SCH ×3 (01:44→16:26)
[2018-04-13] MEDS: ZOSYN VIAL 4.5 GM 4.5 GM in NS 100 ML IV + SPIKE MINIBAG* 100 ML IV SCH ×3 (06:05→22:05)
[2018-04-13] MEDS: INDERAL TAB 10 MG PO SCH ×3 (06:05→22:06)
[2018-04-13 06:36] LABS: BASOPHILS % (AUTO) 0.4 % (0.2-1.0); HEMATOCRIT 36.1 % (36.0-47.0); HEMOGLOBIN 12.7 g/dL (12.0-16.0); LYMPHOCYTES # (AUTO) 0.8 X10^3/uL (1.3-2.9); LYMPHOCYTES % (AUTO) 9.8 % (21.0-51.0); MEAN CORPUSCULAR HEMOGLOBIN 32.7 pg (27.0-34.0); MEAN CORPUSCULAR HGB CONC 35.2 g/dL (33.0-35.0); MEAN CORPUSCULAR VOLUME 92.9 fL (80.0-100.0); MEAN PLATELET VOLUME 7.6 fL (7.4-11.0); MONOCYTES # (AUTO) 0.4 x10^3/uL (0.3-0.8); MONOCYTES % (AUTO) 4.6 % (0.0-13.0); NEUTROPHILS # (AUTO) 6.8 x10^3/uL (2.2-4.8); NEUTROPHILS % (AUTO) 85.2 % (42.0-75.0); PLATELET COUNT 150 X10^3/uL (150.0-450.0); RED BLOOD COUNT 3.89 X10^6/uL (3.5-5.4); RED CELL DISTRIBUTION WIDTH 13.6 % (11.6-16.5)
[2018-04-13 06:45] LABS: ALANINE AMINOTRANSFERASE 14 Units/L (12-78); ALBUMIN 2.6 g/dL (3.4-5.0); ALKALINE PHOSPHATASE 40 Units/L (46-116); ASPARTATE AMINO TRANSFERASE < 6 Units/L (15-37); BLOOD UREA NITROGEN 13 mg/dL (7-18); CALCIUM 7.8 mg/dL (8.5-10.1); CARBON DIOXIDE 27.8 mmol/L (21-32); CHLORIDE 96 mmol/L (98-107); COR CA(FOR HYPOALB) 8.9 mg/dL (8.5-10.1); COR NA(FOR HYPERGLY) 132 mmol/L (136-145); CREATININE 0.86 mg/dL (0.55-1.02); SODIUM 131 mmol/L (136-145); eGFR BLACK RACES > 60 (>60); eGFR NON BLACK RACES > 60 (>60)
[2018-04-13] MEDS ORDERED: MAGNESIUM SULFATE 1 GM/100 mL PREMIX 1 GM/100 ML BAG IV PRN (08:23)
[2018-04-13] MEDS ORDERED: POTASSIUM CHLORIDE LIQ 20 MEQ UDC PO PRN (08:23)
[2018-04-13] MEDS ORDERED: POTASSIUM CHL 60 MEQ/NS 0.45% 500 ML IV PRN (08:23)
[2018-04-13] MEDS ORDERED: POTASSIUM CHL 40 MEQ/NS 0.45% 500 ML IV PRN (08:23)
[2018-04-13] MEDS ORDERED: K-RIDER 10 MEQ/NS 100 ML 10 MEQ/100 ML BAG IV PRN (08:23)
[2018-04-13] MEDS ORDERED: LEXAPRO ONE (08:36)
[2018-04-13] MEDS ORDERED: K-LYTE EFFERVESCENT PO NR (09:00)
[2018-04-13] MEDS: SYNTHROID 50 mcg TAB PO SCH (09:03)
[2018-04-13] MEDS: DEPAKOTE ER PO SCH ×2 (09:03→20:26)
[2018-04-13] MEDS: WELLBUTRIN XL 300 MG (DAILY) PO SCH (09:03)
[2018-04-13] MEDS: MAG-OX TAB PO SCH ×2 (09:03→20:36)
[2018-04-13] MEDS: ZANTAC PO SCH (09:03)
[2018-04-13] MEDS: LOVENOX INJ 30 MG SYR SC SCH (09:11)
[2018-04-13] MEDS: PriLOSEC PO SCH (09:12)
[2018-04-13] MEDS: LEXAPRO PO SCH (09:12)
[2018-04-13] MEDS: HYZAAR 50/12.5 MG PO SCH (09:12)
[2018-04-13] MEDS: LEVAQUIN TAB 750 MG PO SCH (13:26)
[2018-04-13] MEDS: K-LYTE EFFERVESCENT PO PRN (18:55)
[2018-04-13] MEDS: TYLENOL 325 MG TAB PO PRN (18:55)
[2018-04-13] MEDS: DESYREL PO SCH (20:26)
[2018-04-13] MEDS: MIRALAX POWDER (1 DOSE 17GM) PO SCH (20:36)
[2018-04-13] MEDS: ABILIFY PO SCH (20:44)
--- NOTE | 2018-04-13 21:16 | PCM.PROG ---
Progress Note - Progress Note for Day of Date: 04/13/18 - Subjective Subjective: WAS ADMITTED FOR HYPONATREMIA, GENERALIZED WEAKNESS, AND BANDEMIA. TODAY, SHE IS ALERT AND ORIENTED, LYING IN BED ON MORNING ROUNDS. SHE CONTINUES WITH COMPLAINTS OF GENERALIZED WEAKNESS. ON EXAMINATION, HEART IS REGULAR IN RATE AND RHYTHM. BILATERAL LUNGS ARE CLEAR TO AUSCULTATION. ABDOMEN IS ROUND, SOFT, AND NON-TENDER WITH NORMAL BOWEL SOUNDS NOTED IN ALL QUADRANS. HER VITALS THIS MORNING ARE 97.3-68-29-96%-108/55. ABNORMAL LAB VALUES INCLUDE THE FOLLOWING: SODIUM 131, POTASSIUM 3.0, CHLORIDE 96, GLUCOSE 123, CALCIUM 7.8 , MAGNESIUM 1.4, AST <6, ALK PHOS 40, TOTAL PROTEIN 6.0, ALBUMIN 2.6. BLOOD CULTURES ARE PENDING. SHE IS CURRENTLY RECEIVING IV FLUIDS AND IV ANTIBIOTICS. WE WILL CONTINUE WITH CURRENT PLAN OF CARE TODAY AND REPLEAT POTASSIUM AND MAGNESIUM. OTHERWISE, WE WILL FOLLOW UP WITH AM LABS AND CONTINUE TO MONITOR PATIENT. - Past Medical Family Social History Past Med/Fam/Surg Hx: No changes since H&P Allergies: Allergies simvastatin Allergy (Verified 04/11/18 10:07) - Review of Systems ROS: No change since H&P - Vital Signs and I&O's Vital Signs: Temperature 97.9 F Pulse Rate [Bilateral Radial] 76 Pulse Rate 95 Respiratory Rate 18 Blood Pressure [Right Arm] 143/65 Blood Pressure [Left Arm] 140/73 Blood Pressure 126/71 O2 Sat by Pulse Oximetry 98 Intake and Output: Intake & Output 04/11/18 04/12/18 04/13/18 04/14/18 11:59 11:59 11:59 11:59 Intake Total 2952 3491 1120 Output Total 900 2300 1000 Balance 2052 1191 120 - Physical Exam Oriented: Normal, Other (INTERMITTENT CONFUSION ) Eyes: Normal Ear: Normal Nose: Normal Throat: Normal Respiratory: Normal Cardiovascular: Normal : Normal Auscultation: Bowel Sounds: Normal Palpation: Normal Tenderness: Normal Skin: Normal Musculoskeletal: Normal Psychiatric: Normal Mood Description: Calm Affect: Normal Speech Pattern: Clear, Appropriate - Laboratory and Diagnostics Result Diagrams: 04/13/18 06:06 04/13/18 13:10 Labs: 04/11/18 11:30 Blood Blood Culture - Preliminary 04/11/18 11:24 Blood Blood Culture - Preliminary Laboratory WBC 8.0 X10^3/uL (3.6-10.0) 04/13/18 06:06 RBC 3.89 X10^6/uL (3.5-5.4) 04/13/18 06:06 Hgb 12.7 g/dL (12.0-16.0) 04/13/18 06:06 Hct 36.1 % (36.0-47.0) 04/13/18 06:06 MCV 92.9 fL (80.0-100.0) 04/13/18 06:06 MCH 32.7 pg (27.0-34.0) 04/13/18 06:06 MCHC 35.2 g/dL (33.0-35.0) H 04/13/18 06:06 RDW 13.6 % (11.6-16.5) 04/13/18 06:06 Plt Count 150 X10^3/uL (150.0-450.0) 04/13/18 06:06 Plt Count Comment Adequate (ADEQUATE) 04/12/18 05:20 MPV 7.6 fL (7.4-11.0) 04/13/18 06:06 Neut % (Auto) 85.2 % (42.0-75.0) H 04/13/18 06:06 Lymph % (Auto) 9.8 % (21.0-51.0) L 04/13/18 06:06 [place] % (Auto) 4.6 % (0.0-13.0) 04/13/18 06:06 Eos % (Auto) 0.0 % (0.9-2.9) L 04/13/18 06:06 Baso % (Auto) 0.4 % (0.2-1.0) 04/13/18 06:06 Neut # (Auto) 6.8 x10^3/uL (2.2-4.8) H 04/13/18 06:06 Lymph # (Auto) 0.8 X10^3/uL (1.3-2.9) L 04/13/18 06:06 [place] # (Auto) 0.4 x10^3/uL (0.3-0.8) 04/13/18 06:06 Eos # (Auto) 0.0 x10^3/uL (0.0-0.2) 04/13/18 06:06 Baso # (Auto) 0.0 X10^3/uL (0.0-0.1) 04/13/18 06:06 Absolute Nucleated RBC 0.1 /100WBC 04/13/18 06:06 Total Counted 100 04/12/18 05:20 Neutrophils % (Manual) 88 % (39-76) H 04/12/18 05:20 Band Neutrophils % 14 % (0-10) H 04/11/18 10:30 Lymphocytes % (Manual) 9 % (13-43) L 04/12/18 05:20 Monocytes % (Manual) 1 % (4-9) L 04/12/18 05:20 Eosinophils % (Manual) 2 % (0-6) 04/12/18 05:20 Plt Morphology Comment Normal (NORMAL) 04/12/18 05:20 RBC Morphology Normal (NORMAL) 04/12/18 05:20 INR Target Range - 04/11/18 12:49 INR 0.98 (0.8-1.3) 04/11/18 12:49 APTT 27.6 SECONDS (22.9-36.5) 04/11/18 12:49 PTT Comment - 04/11/18 12:49 Sample Site Rra 04/11/18 13:05 ABG pH 7.460 (7.35-7.45) H 04/11/18 13:05 ABG pCO2 35.0 mmHg (35.0-45.0) 04/11/18 13:05 ABG pO2 62.0 mmHg (80.0-100.0) L 04/11/18 13:05 ABG HCO3 24.9 mmol/L (22-26) 04/11/18 13:05 ABG O2 Saturation 93.0 % (90-100) 04/11/18 13:05 ABG Base Excess 1.3 mmol/L (-2.0-2.0) 04/11/18 13:05 Adan Test Pos 04/11/18 13:05 A-a Gradient 44.0 mmHg 04/11/18 13:05 FiO2 21.000 04/11/18 13:05 Blood Gas Comments Aisha well cs 04/11/18 13:05 Sodium 131 mmol/L (136-145) L 04/13/18 06:06 Corrected Sodium 132 mmol/L (136-145) L 04/13/18 06:06 Potassium 3.0 mmol/L (3.5-5.1) L* 04/13/18 13:10 Chloride 96 mmol/L (98-107) L 04/13/18 06:06 Carbon Dioxide 27.8 mmol/L (21-32) 04/13/18 06:06 BUN 13 mg/dL (7-18) 04/13/18 06:06 Creatinine 0.86 mg/dL (0.55-1.02) 04/13/18 06:06 Est GFR (MDRD) Af Amer > 60 (>60) 04/13/18 06:06 Est GFR (MDRD) Non-Af > 60 (>60) 04/13/18 06:06 Glucose 123 mg/dL (65-99) H 04/13/18 06:06 Lactic Acid 1.1 mmol/L (0.4-2.0) 04/12/18 05:20 Calcium 7.8 mg/dL (8.5-10.1) L 04/13/18 06:06 Corrected Calcium 8.9 mg/dL (8.5-10.1) 04/13/18 06:06 Phosphorus 3.4 mg/dL (2.6-4.7) 04/12/18 05:20 Magnesium 1.5 mg/dL (1.7-2.9) L 04/13/18 06:06 Total Bilirubin 0.20 mg/dL (0.2-1.0) 04/13/18 06:06 AST < 6 Units/L (15-37) L 04/13/18 06:06 ALT 14 Units/L (12-78) 04/13/18 06:06 Alkaline Phosphatase 40 Units/L (46-116) L 04/13/18 06:06 Lactate Dehydrogenase 122 Units/L (81-234) 04/11/18 11:30 Creatine Kinase 51 Units/L (26-192) 04/11/18 10:30 CK-MB (CK-2) < 1.0 ng/mL (0-4.0) 04/11/18 10:30 CK/CKMB % Calc 2.0 % (<4) 04/11/18 10:30 Troponin I < 0.02 ng/mL (0-1.5) 04/11/18 10:30 Total Protein 6.0 g/dL (6.4-8.2) L 04/13/18 06:06 Albumin 2.6 g/dL (3.4-5.0) L 04/13/18 06:06 Globulin 3.4 g/dL (2.5-4.5) 04/13/18 06:06 Albumin/Globulin Ratio 0.8 Ratio (1.1-2.1) L 04/13/18 06:06 Amylase 37 Units/L (25-115) 04/11/18 10:30 Lipase 64 Units/L (73-393) L 04/11/18 10:30 Specimen Type Clean catch urine 04/11/18 11:45 Urine Color Yellow (YELLOW) 04/11/18 11:45 Urine Appearance Clear (CLEAR) 04/11/18 11:45 Urine pH 8.0 (5.0 - 8.0) 04/11/18 11:45 Ur Specific [place] 1.010 (1.000-1.030) 04/11/18 11:45 Urine Protein Negative (NEGATIVE) 04/11/18 11:45 Urine Glucose (UA) Negative (NEGATIVE) 04/11/18 11:45 Urine Ketones Negative (NEGATIVE) 04/11/18 11:45 Urine Occult Blood 2+ (NEGATIVE) 04/11/18 11:45 Urine Nitrite Negative (NEGATIVE) 04/11/18 11:45 Urine Bilirubin Negative (NEGATIVE) 04/11/18 11:45 Urine Urobilinogen Normal (NORMAL) 04/11/18 11:45 Ur Leukocyte Esterase 1+ (NEGATIVE) 04/11/18 11:45 Urine RBC 0-2 /HPF (NONE SEEN) 04/11/18 11:45 Urine WBC 3-5 /HPF (NONE SEEN) 04/11/18 11:45 Ur Squamous Epith Cells Rare /HPF (NEGATIVE) 04/11/18 11:45 Urine Bacteria Trace /HPF (NEGATIVE) 04/11/18 11:45 Hyaline Casts Few /LPF (NEGATIVE) 04/11/18 11:45 Ur Culture Indicated? No/not indicated 04/11/18 11:45 - Plan (1) Hyponatremia Status: Acute Plan: NORMAL SALINE AT 80ML/HR, CONTINUE TO MONITOR (2) Bandemia without diagnosis of specific infection Status: Acute Plan: ZOSYN IV, LEVAQUIN IV, BLOOD CULTURES, CONTINUE TO MONITOR (3) Generalized weakness Status: Acute (4) Hypomagnesemia Status: Acute Plan: REPLACE WITH PROTOCOL (5) Hypokalemia Status: Acute Plan: REPLACE WITH PROTOCOL
[2018-04-14] MEDS: SOLU-Cortef INJ IVP SCH ×3 (02:02→12:39)
[2018-04-14] MEDS: K-LYTE EFFERVESCENT PO PRN ×2 (02:08→10:49)
[2018-04-14] MEDS: NS 1000 ML 1,000 ML IV SCH (04:45)
[2018-04-14] MEDS: TYLENOL #3 TAB (W/CODEINE) PO PRN (04:45)
[2018-04-14] MEDS: INDERAL TAB 10 MG PO SCH (05:08)
[2018-04-14] MEDS: ZOSYN VIAL 4.5 GM 4.5 GM in NS 100 ML IV + SPIKE MINIBAG* 100 ML IV SCH (05:08)
[2018-04-14 06:25] LABS: BASOPHILS % (AUTO) 0.4 % (0.2-1.0); EOSINOPHILS % (AUTO) 0.1 % (0.9-2.9); HEMATOCRIT 38.4 % (36.0-47.0); HEMOGLOBIN 13.3 g/dL (12.0-16.0); LYMPHOCYTES # (AUTO) 0.8 X10^3/uL (1.3-2.9); LYMPHOCYTES % (AUTO) 10.8 % (21.0-51.0); MEAN CORPUSCULAR HEMOGLOBIN 32.8 pg (27.0-34.0); MEAN CORPUSCULAR HGB CONC 34.6 g/dL (33.0-35.0); MEAN CORPUSCULAR VOLUME 94.8 fL (80.0-100.0); MEAN PLATELET VOLUME 7.9 fL (7.4-11.0); MONOCYTES # (AUTO) 0.4 x10^3/uL (0.3-0.8); MONOCYTES % (AUTO) 5.3 % (0.0-13.0); NEUTROPHILS # (AUTO) 6.5 x10^3/uL (2.2-4.8); NEUTROPHILS % (AUTO) 83.4 % (42.0-75.0); PLATELET COUNT 157 X10^3/uL (150.0-450.0); RED BLOOD COUNT 4.05 X10^6/uL (3.5-5.4); RED CELL DISTRIBUTION WIDTH 13.5 % (11.6-16.5); WHITE BLOOD COUNT 7.8 X10^3/uL (3.6-10.0)
[2018-04-14 06:26] LABS: ALANINE AMINOTRANSFERASE 12 Units/L (12-78); ALBUMIN 2.8 g/dL (3.4-5.0); ALKALINE PHOSPHATASE 48 Units/L (46-116); ASPARTATE AMINO TRANSFERASE 6 Units/L (15-37); BLOOD UREA NITROGEN 14 mg/dL (7-18); CALCIUM 8.2 mg/dL (8.5-10.1); CARBON DIOXIDE 29.7 mmol/L (21-32); CHLORIDE 94 mmol/L (98-107); COR CA(FOR HYPOALB) 9.2 mg/dL (8.5-10.1); COR NA(FOR HYPERGLY) 132 mmol/L (136-145); CREATININE 0.93 mg/dL (0.55-1.02); MAGNESIUM 1.6 mg/dL (1.7-2.9); SODIUM 131 mmol/L (136-145); TOTAL PROTEIN 6.3 g/dL (6.4-8.2); eGFR BLACK RACES > 60 (>60); eGFR NON BLACK RACES > 60 (>60)
[2018-04-14 06:48] LABS: BAND NEUTROPHILS % 4 % (0-10)
[2018-04-14 06:49] LABS: PLATELET MORPHOLOGY COMMENT NORMAL (NORMAL)
[2018-04-14] MEDS ORDERED: LEXAPRO ONE (09:12)
[2018-04-14] MEDS: LOVENOX INJ 30 MG SYR SC SCH (09:24)
[2018-04-14] MEDS: DEPAKOTE ER PO SCH (09:25)
[2018-04-14] MEDS: SYNTHROID 50 mcg TAB PO SCH (09:25)
[2018-04-14] MEDS: WELLBUTRIN XL 300 MG (DAILY) PO SCH (09:25)
[2018-04-14] MEDS: ZANTAC PO SCH (09:26)
[2018-04-14] MEDS: LEXAPRO PO SCH (09:26)
[2018-04-14] MEDS: MAG-OX TAB PO SCH (09:27)
[2018-04-14] MEDS: PriLOSEC PO SCH (09:29)
[2018-04-14] MEDS: HYZAAR 50/12.5 MG PO SCH (09:30)
[2018-04-14] MEDS: TYLENOL 325 MG TAB PO PRN (09:38)
[2018-04-14] MEDS: LEVAQUIN TAB 750 MG PO SCH (12:39)
[2018-04-14 12:52] VITALS: BP 143/74
== END 2018-04-14 12:50 | disposition home or self-care (01) | DRG 641 ==
LOC: ER 09:13 → ICU 12:08 → MED/SURG 04-13 09:55
PROVIDERS: ADMIT Internal Medicine; ATTEND Internal Medicine
DX: E87.1 Hypo-osmolality and hyponatremia (principal); R53.1 Weakness; D72.825 Bandemia; E11.65 Type 2 diabetes mellitus with hyperglycemia; K21.9 Gastro-esophageal reflux disease without esophagitis; I10 Essential (primary) hypertension; E03.8 Other specified hypothyroidism; E83.42 Hypomagnesemia; R26.89 Other abnormalities of gait and mobility; E87.6 Hypokalemia; R29.6 Repeated falls
CPT/HCPCS: 36415; 36600; 51702; 70450; 71045; 80053; 81001; 82150; 82533; 82550; 82553; 82803; 83605; 83615; 83690; 83735; 84100; 84132; 84484; 85025; 85610; 85730; 87040; 93005; 93010; 96365; 97535; 99284; A4222; J1650; J1720; J2543

== ENCOUNTER 2018-09-05 14:40 | Inpatient (IN) ==
[2018-09-05] MEDS ORDERED: NS 1000 ML 1,000 ML ONE ×3 (14:53→19:56)
[2018-09-05] MEDS ORDERED: NS 1000 ML 1,000 ML IV ONE ×3 (14:55→20:03)
--- NOTE | 2018-09-05 16:05 | DR.GENAD ---
HPI Time Seen Time Seen by Provider: 09/05/18 15:51 PCP Primary Care Physician: brina HPI Comment HPI Comment: GETTING WORSE. NO FEVER. Complaint/Symptoms Chief Complaint Doctors Comments: FELL WEDNESDAY AND WOKE UP WITH BOTH LEGS SWOLLEN AND RED. Chief Complaint:: " i fell night and woke up wednesday with both legs swollen and red" Nurses notes reviewed Nurses Notes Review: Yes Source History Provided: Patient Mode of Arrival Mode of Arrival: EMS Timing Onset of Chief Complaint: 08/25/18 Came on: Suddenly Duration Duration: Constant Duration: Hours Severity Severity: Moderate Modifying Factors Worsens:: BEARING WEIGHT HURT. Improves:: RESTING IMPROVES PAIN. PMH PMH Past Medical History: Yes Past Medical History: Anemia, Depression, GERD, Hypertension, Hyperthyroidism and Hypothyroidism Past Surgical History: Yes Surgical History: Hysterectomy and Mastectomy Family History History of Family Medical Conditions: Yes Family Medical History: Cancer and Hypertension Social History Does patient currently use any type of tobacco product: No Have you used tobacco products in the last 12 months: No Type of Tobacco Use: None Does any household member use tobacco: No Alcohol Use: None Do you use any recreational Drugs:: No Lives With: Family Lives Where: Home infectious screening In the last 2 months have you had wt loss of >10#?: NO Have you had fever, night sweats or hemotysis?: No Have you traveled outside the country in the last 6 months?: No Isolation: Standard ROS Review of Systems Constitutional: No Symptoms Reported Eyes: No Symptoms Reported ENTM: No Symptoms Reported Respiratoy: Short of Breath Cardiovascular: Edema Gastrointestinal/Abdominal: No Symptoms Reported Genitourinary: No Symptoms Reported Neurological: No Symptoms Reported Musculoskeletal: Right, Left, Leg and Foot Integumentary: Other (REDNESS AND SWELLING BOTH LEGS) Hematologic/Lymphatic: No Symptoms Reported Endocrine: No Symptoms Reported Psychiatric: No Symptoms Reported All Other Systems: Reviewed and Negative PE Vital Signs Vitals: Temperature 98.0 F Pulse Rate [Right Brachial] 79 Pulse Rate 99 Respiratory Rate 26 Blood Pressure [Right Arm] 135/84 Blood Pressure [Left Arm] 140/73 Blood Pressure 126/77 O2 Sat by Pulse Oximetry 98 General Limitations: No Limitations General Appearance: Alert and In No Apparent Distress Head Head Exam: Normal Inspection, Atraumatic and Normocephalic ENT ENT Exam: Normal Exam, Normal Oropharynx, Normal External Ear Exam, Mucous Membranes Moist and TM's Normal Bilaterally External Ear Exam: Normal External Inspection TM/Canal Exam: Bilateral: Normal Nose Exam: Normal Nose Exam Mouth Exam: Normal Inspection Throat Exam: Normal Inspection Neck Neck Exam: Normal Inspection Chest Chest Inspection: Normal Inspection and Symmetric Chest Wall Rise Respiratory Respiratory Exam: Normal Lung Sounds Bilat Respiratory Exam: Bilateral: Wheezing and Bilateral: Rhonchi, Upper: Rhonchi and Lower: Wheezing and Lower: Rhonchi Cardiovascular Cardiovascular Exam: Regular Rate and Normal Rhythm Abdominal Exam Abdominal Exam: Normal Inspection Extremities Extremities Exam: Tenderness, Normal Capillary Refill, Edema and Joint Swelling (LEGS) Back Back Exam: Normal Inspection Neurologic Neurological Exam: Alert and Oriented X3; negative Motor Sensory Deficit Psychiatric Psychiatric Exam: Normal Affect and Normal Mood Skin Skin Exam: Warm and Dry MDM Differential Diagnosis Differential Diagnosis: CELLULITIS LEGS. COURSE Treatment Treatment: SEE ORDERS. Education/Counseling Education/Counseling: Patient Educated On: Diagnosis ROR Labs Reviewed Laboratory Results Reviewed?: Yes Result Diagrams: 09/10/18 05:23 09/10/18 05:23 Laboratory: 09/06/18 11:25 Blood Blood Culture - Final 09/06/18 11:20 Blood Blood Culture - Final WBC 5.9 X10^3/uL (3.6-10.0) 09/10/18 05:23 RBC 3.67 X10^6/uL (3.5-5.4) 09/10/18 05:23 Hgb 12.1 g/dL (12.0-16.0) 09/10/18 05:23 Hct 35.1 % (36.0-47.0) L 09/10/18 05:23 MCV 95.6 fL (80.0-100.0) 09/10/18 05:23 MCH 32.9 pg (27.0-34.0) 09/10/18 05:23 MCHC 34.5 g/dL (33.0-35.0) 09/10/18 05:23 RDW 14.4 % (11.6-16.5) 09/10/18 05:23 Plt Count 174 X10^3/uL (150.0-450.0) 09/10/18 05:23 Plt Count Comment Adequate (ADEQUATE) 09/10/18 05:23 MPV 7.2 fL (7.4-11.0) L 09/10/18 05:23 Neut % (Auto) 70.6 % (42.0-75.0) 09/10/18 05:23 Lymph % (Auto) 16.8 % (21.0-51.0) L 09/10/18 05:23 [place] % (Auto) 7.3 % (0.0-13.0) 09/10/18 05:23 Eos % (Auto) 4.7 % (0.9-2.9) H 09/10/18 05:23 Baso % (Auto) 0.6 % (0.2-1.0) 09/10/18 05:23 Neut # (Auto) 4.2 x10^3/uL (2.2-4.8) 09/10/18 05:23 Lymph # (Auto) 1.0 X10^3/uL (1.3-2.9) L 09/10/18 05:23 [place] # (Auto) 0.4 x10^3/uL (0.3-0.8) 09/10/18 05:23 Eos # (Auto) 0.3 x10^3/uL (0.0-0.2) H 09/10/18 05:23 Baso # (Auto) 0.0 X10^3/uL (0.0-0.1) 09/10/18 05:23 Absolute Nucleated RBC 0.2 /100WBC 09/10/18 05:23 Total Counted 100 09/10/18 05:23 Neutrophils % (Manual) 65 % (39-76) 09/10/18 05:23 Band Neutrophils % 4 % (0-10) 09/10/18 05:23 Lymphocytes % (Manual) 19 % (13-43) 09/10/18 05:23 Monocytes % (Manual) 4 % (4-9) 09/10/18 05:23 Eosinophils % (Manual) 5 % (0-6) 09/10/18 05:23 Basophils % (Manual) 1 % (0-1) 09/10/18 05:23 Metamyelocytes % 2 09/10/18 05:23 Plt Morphology Comment Normal (NORMAL) 09/10/18 05:23 RBC Morphology Normal (NORMAL) 09/10/18 05:23 D-Dimer < 100 ng/mL (0-400) 09/06/18 05:20 Sodium 132 mmol/L (136-145) L 09/10/18 05:23 Corrected Sodium TNP 09/10/18 05:23 Potassium 4.0 mmol/L (3.5-5.1) 09/10/18 05:23 Chloride 98 mmol/L (98-107) 09/10/18 05:23 Carbon Dioxide 24.7 mmol/L (21-32) 09/10/18 05:23 BUN 17 mg/dL (7-18) 09/10/18 05:23 Creatinine 0.76 mg/dL (0.55-1.02) 09/10/18 05:23 Est GFR (MDRD) Af Amer > 60 (>60) 09/10/18 05:23 Est GFR (MDRD) Non-Af > 60 (>60) 09/10/18 05:23 Glucose 69 mg/dL (65-99) 09/10/18 05:23 Lactic Acid 1.2 mmol/L (0.4-2.0) 09/05/18 16:09 Calcium 8.2 mg/dL (8.5-10.1) L 09/10/18 05:23 Corrected Calcium 9.4 mg/dL (8.5-10.1) 09/10/18 05:23 Magnesium 1.5 mg/dL (1.7-2.9) L 09/10/18 05:23 Total Bilirubin 0.30 mg/dL (0.2-1.0) 09/10/18 05:23 AST 11 Units/L (15-37) L 09/10/18 05:23 ALT 17 Units/L (12-78) 09/10/18 05:23 Alkaline Phosphatase 42 Units/L (46-116) L 09/10/18 05:23 Creatine Kinase 56 Units/L (26-192) 09/06/18 05:21 CK-MB (CK-2) 1.3 ng/mL (0-4.0) 09/06/18 05:21 CK/CKMB % Calc 2.3 % (<4) 09/06/18 05:21 Troponin I < 0.02 ng/mL (0-1.5) 09/06/18 05:21 B-Natriuretic Peptide 67.9 pg/mL (0-79) 09/07/18 05:30 Total Protein 5.7 g/dL (6.4-8.2) L 09/10/18 05:23 Albumin 2.5 g/dL (3.4-5.0) L 09/10/18 05:23 Globulin 3.2 g/dL (2.5-4.5) 09/10/18 05:23 Albumin/Globulin Ratio 0.8 Ratio (1.1-2.1) L 09/10/18 05:23 Specimen Type Catherized urine 09/05/18 22:25 Urine Color Yellow (YELLOW) 09/05/18 22:25 Urine Appearance Clear (CLEAR) 09/05/18: Urine pH 7.0 (5.0 - 8.0) 09/05/18: Ur Specific Seffner 1.005 (1.000-1.030) 09/05/18 22:25 Urine Protein Negative (NEGATIVE) 09/05/18 22:25 Urine Glucose (UA) Negative (NEGATIVE) 09/05/18: Urine Ketones Negative (NEGATIVE) 09/05/18 22:25 Urine Occult Blood Negative (NEGATIVE) 09/05/18:25 Urine Nitrite Negative (NEGATIVE) 09/05/18:25 Urine Bilirubin Negative (NEGATIVE) 09/05/18: Urine Urobilinogen Normal (NORMAL) 09/05/18 22:25 Ur Leukocyte Esterase Negative (NEGATIVE) 09/05/18:25
[2018-09-05 16:17] LABS: BASOPHILS # (AUTO) 0.1 X10^3/uL (0.0-0.1); BASOPHILS % (AUTO) 0.4 % (0.2-1.0); EOSINOPHILS % (AUTO) 0.1 % (0.9-2.9); HEMATOCRIT 32.8 % (36.0-47.0); HEMOGLOBIN 11.3 g/dL (12.0-16.0); LYMPHOCYTES # (AUTO) 0.6 X10^3/uL (1.3-2.9); LYMPHOCYTES % (AUTO) 3.8 % (21.0-51.0); MEAN CORPUSCULAR HEMOGLOBIN 32.6 pg (27.0-34.0); MEAN CORPUSCULAR HGB CONC 34.3 g/dL (33.0-35.0); MEAN PLATELET VOLUME 7.3 fL (7.4-11.0); MONOCYTES # (AUTO) 0.2 x10^3/uL (0.3-0.8); MONOCYTES % (AUTO) 1.5 % (0.0-13.0); NEUTROPHILS # (AUTO) 13.9 x10^3/uL (2.2-4.8); NEUTROPHILS % (AUTO) 94.2 % (42.0-75.0); PLATELET COUNT 138 X10^3/uL (150.0-450.0); RED BLOOD COUNT 3.45 X10^6/uL (3.5-5.4); RED CELL DISTRIBUTION WIDTH 14.2 % (11.6-16.5); WHITE BLOOD COUNT 14.8 X10^3/uL (3.6-10.0)
--- NOTE | 2018-09-05 16:22 | RAD ---
Portable chest Clinical indication: Shortness of breath Comparison: 04/11/2018. Findings: There are no consolidating pulmonary infiltrates. The pleural spaces are clear low lung vol umes are demonstrated resulting in crowded interstitium. The heart size is normal, accounting for ins piratory effort. There is no mediastinal widening. There is no evidence of free air or pneumothorax. No acute bony abnormalities are observed. Impression: Low lung volume; no consolidative infiltrates identified by portable technique. Reported By:
[2018-09-05 16:30] LABS: BAND NEUTROPHILS % 16 % (0-10); PLATELET MORPHOLOGY COMMENT NORMAL (NORMAL)
[2018-09-05 16:34] LABS: BLOOD UREA NITROGEN 20 mg/dL (7-18); CALCIUM 7.7 mg/dL (8.5-10.1); CHLORIDE 95 mmol/L (98-107); SODIUM 129 mmol/L (136-145); TROPONIN I < 0.02 ng/mL (0-1.5); eGFR NON BLACK RACES 52 (>60)
[2018-09-05 16:38] LABS: LACTIC ACID 1.2 mmol/L (0.4-2.0)
[2018-09-05 16:39] LABS: ALANINE AMINOTRANSFERASE 14 Units/L (12-78); ALBUMIN 2.3 g/dL (3.4-5.0); ALKALINE PHOSPHATASE 37 Units/L (46-116); ASPARTATE AMINO TRANSFERASE 8 Units/L (15-37); CKMB % 2.4 % (<4); COR CA(FOR HYPOALB) 9.1 mg/dL (8.5-10.1); CREATINE KINASE 42 Units/L (26-192); CREATINE KINASE MB < 1.0 ng/mL (0-4.0); TOTAL PROTEIN 4.8 g/dL (6.4-8.2)
[2018-09-05] MEDS ORDERED: ZOSYN VIAL 2.25 GRAMS 2.25 G in NS 100 ML IV + SPIKE MINIBAG* 100 ML IV ONE (17:52)
[2018-09-05] MEDS ORDERED: NS 100 ML IV + SPIKE MINIBAG* 100 ML IV ONE (17:58)
[2018-09-05] MEDS ORDERED: ZOSYN VIAL 2.25 GRAMS IV ONE (18:00)
[2018-09-05] MEDS ORDERED: DOPAMINE IV PREMIX 400 MG/250 ML 400 MG/250 ML BAG IV PRN (19:43)
[2018-09-05] MEDS ORDERED: ZOSYN VIAL 2.25 GRAMS 2.25 G in NS 100 ML IV + SPIKE MINIBAG* 100 ML IV SCH (22:00)
[2018-09-05 22:53] LABS: BILIRUBIN,URINE NEGATIVE (NEGATIVE); BLOOD/HEMOGLOBIN,URINE NEGATIVE (NEGATIVE); GLUCOSE, URINE NEGATIVE (NEGATIVE); KETONES,URINE NEGATIVE (NEGATIVE); LEUKOCYTE ESTERASE ,URINE NEGATIVE (NEGATIVE); NITRITES,URINE NEGATIVE (NEGATIVE); PROTEIN,URINE NEGATIVE (NEGATIVE); UROBILINOGEN,URINE NORMAL (NORMAL)
[2018-09-05 22:59] LABS: APPEARANCE,URINE CLEAR (CLEAR); COLOR,URINE YELLOW (YELLOW)
[2018-09-06] VITALS: BMI 33.5
[2018-09-06] MEDS: TYLENOL 325 MG TAB PO PRN ×2 (01:07→15:14)
[2018-09-06 05:40] LABS: BASOPHILS % (AUTO) 0.2 % (0.2-1.0); EOSINOPHILS % (AUTO) 0.2 % (0.9-2.9); HEMATOCRIT 36.6 % (36.0-47.0); HEMOGLOBIN 12.7 g/dL (12.0-16.0); LYMPHOCYTES # (AUTO) 0.6 X10^3/uL (1.3-2.9); LYMPHOCYTES % (AUTO) 5.6 % (21.0-51.0); MEAN CORPUSCULAR HEMOGLOBIN 32.8 pg (27.0-34.0); MEAN CORPUSCULAR HGB CONC 34.7 g/dL (33.0-35.0); MEAN CORPUSCULAR VOLUME 94.4 fL (80.0-100.0); MEAN PLATELET VOLUME 7.1 fL (7.4-11.0); MONOCYTES # (AUTO) 0.3 x10^3/uL (0.3-0.8); MONOCYTES % (AUTO) 2.5 % (0.0-13.0); NEUTROPHILS # (AUTO) 9.6 x10^3/uL (2.2-4.8); NEUTROPHILS % (AUTO) 91.5 % (42.0-75.0); PLATELET COUNT 135 X10^3/uL (150.0-450.0); RED BLOOD COUNT 3.88 X10^6/uL (3.5-5.4); RED CELL DISTRIBUTION WIDTH 14.6 % (11.6-16.5); WHITE BLOOD COUNT 10.5 X10^3/uL (3.6-10.0)
[2018-09-06 06:05] LABS: ALANINE AMINOTRANSFERASE 17 Units/L (12-78); ALBUMIN 2.4 g/dL (3.4-5.0); ALKALINE PHOSPHATASE 42 Units/L (46-116); ASPARTATE AMINO TRANSFERASE 8 Units/L (15-37); BLOOD UREA NITROGEN 15 mg/dL (7-18); CALCIUM 8.5 mg/dL (8.5-10.1); CARBON DIOXIDE 23.2 mmol/L (21-32); CHLORIDE 100 mmol/L (98-107); CKMB % 2.3 % (<4); COR CA(FOR HYPOALB) 9.8 mg/dL (8.5-10.1); CREATINE KINASE 56 Units/L (26-192); CREATINE KINASE MB 1.3 ng/mL (0-4.0); CREATININE 0.81 mg/dL (0.55-1.02); MAGNESIUM 1.4 mg/dL (1.7-2.9); SODIUM 133 mmol/L (136-145); TOTAL PROTEIN 5.5 g/dL (6.4-8.2); TROPONIN I < 0.02 ng/mL (0-1.5); eGFR NON BLACK RACES > 60 (>60)
[2018-09-06 06:08] LABS: BAND NEUTROPHILS % 2 % (0-10)
[2018-09-06 06:09] LABS: PLATELET MORPHOLOGY COMMENT NORMAL (NORMAL)
[2018-09-06] MEDS ORDERED: POTASSIUM CHL 40 MEQ/NS 0.45% 500 ML IV PRN (06:42)
[2018-09-06] MEDS ORDERED: K-RIDER 10 MEQ/NS 100 ML 10 MEQ/100 ML BAG IV PRN (06:42)
[2018-09-06] MEDS ORDERED: KLOR-CON PO PRN (06:42)
[2018-09-06] MEDS ORDERED: MICRO K EXTEN CAP 10 MEQ PO PRN (06:42)
[2018-09-06] MEDS ORDERED: POTASSIUM CHL 60 MEQ/NS 0.45% 500 ML IV PRN (06:42)
[2018-09-06] MEDS ORDERED: K-DUR TAB 20 MEQ PO PRN (06:42)
[2018-09-06] MEDS ORDERED: POTASSIUM CHLORIDE LIQ 20 MEQ UDC PO PRN (06:42)
[2018-09-06] MEDS ORDERED: MAGNESIUM SULFATE 1 GRAM/100 mL PREMIX 1 GM/100 ML BAG IV PRN (06:42)
[2018-09-06] MEDS ORDERED: PATIENT'S HOME MEDICATION (Cholecalciferol (Vitamin D3) [Vitamin D3] 2,000 UNIT) PO SCH (09:00)
[2018-09-06] MEDS ORDERED: LEXAPRO ONE (10:36)
[2018-09-06] MEDS: DITROPAN TAB 5 MG PO SCH (10:49)
[2018-09-06] MEDS: DEPAKOTE ER PO SCH ×2 (10:49→21:01)
--- NOTE | 2018-09-06 10:49 | DR.H&P ---
H&P - History & Physical for Day of: H&P Date: 09/05/18 - Chief Complaint Chief Complaint: BLE EDEMA, REDNESS, SOB - History of Present Illness History of Present Illness: IS A 67 YEAR OLD PATIENT OF OURS WHO PRESENTED TO THE EMERGENCY ROOM WITH REPORTS OF FALLING THIS PAST WEDNESDAY. SHE REPORTS THAT SHE WOKE UP ON WEDNESDAY AND BOTH LEGS HAVE BEEN RED AND SWOLLEN. ON ARRIVAL, PATIENT NOTED WITH 2+ PITTING EDEMA AND ERYTHMA TO BILATERAL LOWER EXTREMITIES. SHE ALSO COMPLAINED OF SHORTNESS OF BREATH. ON ARRIVAL, VITALS WERE 98.7-93-18-96%-80/51. LABS WERE OBTAINED. ABNORMAL LAB VALUES INCLUDE THE FOLLOWING: WBC 14.8, RBC 3.45, HGB 11.3, HCT 32.8, PLT COUNT 138, SODIUM 129, CHLORIDE 95, BUN 20, CREATININE 1.10, CALCIUM 7.7, AST 8, ALK PHOS 37, TOTAL PROTEIN 4.8, ALBUMIN 2.3. URINALYSIS UNREMARKABLE. A CHEST XRAY WAS OBTAINED AND REVEALED: There are no consolidating pulmonary infiltrates. The pleural spaces are clear low lung volumes are demonstrated resulting in crowded interstitium. The heart size is normal, accounting for inspiratory effort. There is no mediastinal widening. There is no evidence of free air or pneumothorax. No acute bony abnormalities are observed. EKG REVEALED: SINUS RHYTHM WITH HR 77. SHE WAS GIVEN TWO ONE LITER NORMAL SALINE BOLUS IN THE ER WELL ZOSYN 2.25GM IV X 1. NO IMPROVEMENT IN BLOOD PRESSURE WAS NOTED. SHE WAS THEN STARTED ON A DOPAMINE DRIP AND ADMITTED TO THE INTENSIVE CARE UNIT FOR FURTHER EVALUATION AND TREATMENT OF HYPOTENSION AND BILATERAL LOWER EXTREMITY EDEMA AND CELLULITIS. WE PLANNED TO FOLLOW UP WITH AM LABS AND CONTINUE TO MONITOR PATIENT. - Past Medical History Past Medical History: Hypertension, Depression, Hypothyroidism, Hyperthyroidism, Anemia, GERD - Past Surgical History Surgical History: Hysterectomy, Mastectomy - Family History Family Medical History: Cancer, Hypertension - Social History Does patient currently use any type of tobacco product: No Have you used tobacco products in the last 12 months: No Type of Tobacco Use: None Does any household member use tobacco: No Alcohol Use: None Drug Use: None - Medications Home Medications: simvastatin Allergy (Verified 04/11/18 10:07) CONTINUE taking the following medications aripiprazole 5 mg PO HS 09/05/18 [History] cholecalciferol (vitamin D3) [Vitamin D3] 2,000 unit PO QDAY 09/05/18 [History] divalproex 500 mg PO BID 09/05/18 [History] escitalopram oxalate 10 mg PO DAILY 09/05/18 [History] fluticasone 1 spray INTRANASAL BID 09/05/18 [History] losartan-hydrochlorothiazide 1 tab PO DAILY 09/05/18 [History] omeprazole 40 mg PO DAILY 09/05/18 [History] - Review of Systems Constitutional: Weakness Eyes: No Symptoms Reported ENT: No Symptoms Reported Respiratory: See HPI, Shortness of Breath Cardiovascular: See HPI, Edema (BLE 2+ PITTING EDEMA ). denies: Chest Pain, Palpitations Gastrointestinal: No Symptoms Reported Genitourinary: No Symptoms Reported Musculoskeletal: No Symptoms Reported Skin: No Symptoms Reported Neurological: Weakness - Physical Exam Vital Signs: Temperature 97.2 F Pulse Rate [Right Brachial] 74 Pulse Rate 94 Respiratory Rate 28 Blood Pressure [Right Arm] 79/43 Blood Pressure [Left Arm] 140/73 Blood Pressure 119/59 O2 Sat by Pulse Oximetry 95 Oriented: Normal Eyes: Normal Ear: Normal Nose: Normal Throat: Normal Respiratory: Diminished Throughout Cardiovascular: Edema (BLE 2+ PITTING EDEMA ). negative: S3, S4, Murmur : Normal Auscultation: Bowel Sounds: Normal Palpation: Normal Tenderness: Normal Skin: Red, Tender, Hot (BILATERAL LOWER EXTREMITIES ), Bruising Musculoskeletal: Right, Left, Leg, Swelling, Tender Psychiatric: Normal Mood Description: Calm Affect: Normal Speech Pattern: Appropriate - Assessment/Plan (1) Cellulitis of both lower extremities Status: Acute Plan: ADMIT, ZOSYN 2.25GM IV Q8H, BLOOD CULTURES, OBTAIN VENOUS DOPPLER IN AM, CONTINUE TO MONITOR (2) Hypotension Qualifiers: Hypotension type: unspecified hypotension type Qualified Code(s): I95.9 - Hypotension, unspecified Status: Acute Plan: DOPAMINE DRIP, [employer] ASSEMBLER, 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 - Allergies Allergies/Adverse Reactions: Allergies Allergy/AdvReac Type Severity Reaction Status Date / Time simvastatin Allergy Verified 04/11/18 10:07
[2018-09-06] MEDS: FLONASE NASAL SPRAY ENOSTRIL SCH ×2 (10:52→21:01)
[2018-09-06] MEDS: SYNTHROID 50 mcg TAB PO SCH (10:56)
[2018-09-06] MEDS: LEXAPRO PO SCH (10:56)
[2018-09-06] MEDS: PriLOSEC PO SCH (10:56)
[2018-09-06] MEDS: VITAMIN D3 PO SCH (10:56)
[2018-09-06] MEDS: ZyrTEC TAB 10 MG PO SCH (10:57)
[2018-09-06] MEDS: ZANTAC PO SCH (10:57)
[2018-09-06] MEDS: WELLBUTRIN XL 300 MG (DAILY) PO SCH (10:57)
[2018-09-06] MEDS ORDERED: NS 100 ML IV 100 ML IV ONE (11:03)
[2018-09-06] MEDS: ZOSYN VIAL 2.25 GRAMS 2.25 G in NS 100 ML IV + SPIKE MINIBAG* 100 ML IV SCH ×3 (11:06→21:01)
--- NOTE | 2018-09-06 11:57 | VAS ---
History: Bilateral lower extremity edema and pain Study: Bilateral lower extremity Doppler of the deep veins Comparison: None Findings: The deep veins from the common femoral to the tibial veins are well imaged bilaterally. The re is good Doppler blood flow and compression and augmentation. Impression: No evidence for deep venous thrombosis in either lower extremity Reported By:
--- NOTE | 2018-09-06 14:24 | PCM.PROG ---
Progress Note - Progress Note for Day of Date of Exam: 09/06/18 - Subjective Subjective: WAS ADMITTED FOR LOWER EXTREMITY CELLULITIS AND HYPOTENSION. TODAY, SHE IS ALERT AND ORIENTED, LYING IN BED ON MORNING ROUNDS. SHE CONTINUES WITH ERYTHEMA AND EDEMA TO LOWER EXTREMITIES WELL SHORTNESS OF BREATH. SHE REMAINS ON A DOPAMINE DRIP THIS MORNING, HOWEVER, HER BLOOD P RESSURE HAS REMAINED STABLE AND IS CURRENTLY RUNNING AT 2.5MG/HR. HER VITLAS TODAY ARE 97.2-92-29-98%-130/60. LABS WERE OBTAINED. ABNORMAL LAB VALUES INCLUDE THE FOLLOWING: WBC 10.5, PLT COUNT 135, SODIUM 133, POTASSIUM 3.2, GLUCOSE 107, MAGNESIUM 1.4, AST 8, ALK PHOS 42, TOTAL PROTEIN 5.5, ALBUMIN 2.4. BLOOD CULTURES ARE PENDING. TODAY, WE WILL OBTAIN BILATERAL LOWER EXTREMITY VENOUS DOPPLERS. WE WILL TURN OFF THE DOPAMINE DRIP AND MONITOR BLOOD PRESSURE. OTHERWISE, WE WILL CONTINUE WITH IV ANTIBIOTICS AND CURRENT PLAN OF CARE. WE PLAN TO FOLLOW UP WITH AM LABS AND CONTINUE TO MONITOR PATIENT. - Past Medical Family Social History Past Med/Fam/Surg Hx: No changes since H&P Allergies: Allergies simvastatin Allergy (Verified 04/11/18 10:07) - Review of Systems ROS: No change since H&P - Vital Signs and I&O's Vital Signs: Temperature 97.4 F Pulse Rate [Right Brachial] 74 Pulse Rate 86 Respiratory Rate 23 Blood Pressure [Right Arm] 79/43 Blood Pressure [Left Arm] 140/73 Blood Pressure 120/53 O2 Sat by Pulse Oximetry 98 Intake and Output: Intake & Output 09/04/18 09/05/18 09/06/18 09/07/18 11:59 11:59 11:59 11:59 Intake Total 1877 / 1877 Output Total 2450 / 2450 Balance -573 / -573 - Physical Exam Oriented: Normal Eyes: Normal Ear: Normal Nose: Normal Throat: Normal Respiratory: Generalized, Diminished Cardiovascular: Edema (BLE 2+ PITTING EDEMA ). negative: S3, S4, Murmur : Normal Auscultation: Bowel Sounds: Normal Palpation: Normal Tenderness: Normal Skin: Red, Tender, Hot (BILATERAL LOWER EXTREMITIES ), Bruising Musculoskeletal: Right, Left, Leg, Swelling, Tender Psychiatric: Normal Mood Description: Calm Affect: Normal Speech Pattern: Appropriate - Laboratory and Diagnostics Result Diagrams: 09/06/18 05:21 09/06/18 05:21 Labs: Laboratory WBC 10.5 X10^3/uL (3.6-10.0) H 09/06/18 05:21 RBC 3.88 X10^6/uL (3.5-5.4) 09/06/18 05:21 Hgb 12.7 g/dL (12.0-16.0) 09/06/18 05:21 Hct 36.6 % (36.0-47.0) 09/06/18 05:21 MCV 94.4 fL (80.0-100.0) 09/06/18 05:21 MCH 32.8 pg (27.0-34.0) 09/06/18 05:21 MCHC 34.7 g/dL (33.0-35.0) 09/06/18 05:21 RDW 14.6 % (11.6-16.5) 09/06/18 05:21 Plt Count 135 X10^3/uL (150.0-450.0) L 09/06/18 05:21 Plt Count Comment Adequate (ADEQUATE) 09/06/18 05:21 MPV 7.1 fL (7.4-11.0) L 09/06/18 05:21 Neut % (Auto) 91.5 % (42.0-75.0) H 09/06/18 05:21 Lymph % (Auto) 5.6 % (21.0-51.0) L 09/06/18 05:21 [place] % (Auto) 2.5 % (0.0-13.0) 09/06/18 05:21 Eos % (Auto) 0.2 % (0.9-2.9) L 09/06/18 05:21 Baso % (Auto) 0.2 % (0.2-1.0) 09/06/18 05:21 Neut # (Auto) 9.6 x10^3/uL (2.2-4.8) H 09/06/18 05:21 Lymph # (Auto) 0.6 X10^3/uL (1.3-2.9) L 09/06/18 05:21 [place] # (Auto) 0.3 x10^3/uL (0.3-0.8) 09/06/18 05:21 Eos # (Auto) 0.0 x10^3/uL (0.0-0.2) 09/06/18 05:21 Baso # (Auto) 0.0 X10^3/uL (0.0-0.1) 09/06/18 05:21 Absolute Nucleated RBC 0.0 /100WBC 09/06/18 05:21 Total Counted 100 09/06/18 05:21 Neutrophils % (Manual) 90 % (39-76) H 09/06/18 05:21 Band Neutrophils % 2 % (0-10) 09/06/18 05:21 Lymphocytes % (Manual) 6 % (13-43) L 09/06/18 05:21 Monocytes % (Manual) 2 % (4-9) L 09/06/18 05:21 Plt Morphology Comment Normal (NORMAL) 09/06/18 05:21 RBC Morphology Normal (NORMAL) 09/06/18 05:21 D-Dimer < 100 ng/mL (0-400) 09/06/18 05:20 Sodium 133 mmol/L (136-145) L 09/06/18 05:21 Corrected Sodium TNP 09/06/18 05:21 Potassium 3.2 mmol/L (3.5-5.1) L 09/06/18 05:21 Chloride 100 mmol/L (98-107) 09/06/18 05:21 Carbon Dioxide 23.2 mmol/L (21-32) 09/06/18 05:21 BUN 15 mg/dL (7-18) 09/06/18 05:21 Creatinine 0.81 mg/dL (0.55-1.02) 09/06/18 05:21 Est GFR (MDRD) Af Amer > 60 (>60) 09/06/18 05:21 Est GFR (MDRD) Non-Af > 60 (>60) 09/06/18 05:21 Glucose 107 mg/dL (65-99) H 09/06/18 05:21 Lactic Acid 1.2 mmol/L (0.4-2.0) 09/05/18 16:09 Calcium 8.5 mg/dL (8.5-10.1) 09/06/18 05:21 Corrected Calcium 9.8 mg/dL (8.5-10.1) 09/06/18 05:21 Magnesium 1.4 mg/dL (1.7-2.9) L 09/06/18 05:21 Total Bilirubin 0.60 mg/dL (0.2-1.0) 09/06/18 05:21 AST 8 Units/L (15-37) L 09/06/18 05:21 ALT 17 Units/L (12-78) 09/06/18 05:21 Alkaline Phosphatase 42 Units/L (46-116) L 09/06/18 05:21 Creatine Kinase 56 Units/L (26-192) 09/06/18 05:21 CK-MB (CK-2) 1.3 ng/mL (0-4.0) 09/06/18 05:21 CK/CKMB % Calc 2.3 % (<4) 09/06/18 05:21 Troponin I < 0.02 ng/mL (0-1.5) 09/06/18 05:21 Total Protein 5.5 g/dL (6.4-8.2) L 09/06/18 05:21 Albumin 2.4 g/dL (3.4-5.0) L 09/06/18 05:21 Globulin 3.1 g/dL (2.5-4.5) 09/06/18 05:21 Albumin/Globulin Ratio 0.8 Ratio (1.1-2.1) L 09/06/18 05:21 Specimen Type Catherized urine 09/05/18 22:25 Urine Color Yellow (YELLOW) 09/05/18 22:25 Urine Appearance Clear (CLEAR) 09/05/18 22:25 Urine pH 7.0 (5.0 - 8.0) 09/05/18 22:25 Ur Specific [place] 1.005 (1.000-1.030) 09/05/18 22:25 Urine Protein Negative (NEGATIVE) 09/05/18 22:25 Urine Glucose (UA) Negative (NEGATIVE) 09/05/18 22:25 Urine Ketones Negative (NEGATIVE) 09/05/18 22:25 Urine Occult Blood Negative (NEGATIVE) 09/05/18 22:25 Urine Nitrite Negative (NEGATIVE) 09/05/18 22:25 Urine Bilirubin Negative (NEGATIVE) 09/05/18 22:25 Urine Urobilinogen Normal (NORMAL) 09/05/18 22:25 Ur Leukocyte Esterase Negative (NEGATIVE) 09/05/18 22:25 - Plan (1) Cellulitis of both lower extremities Status: Acute Plan: ADMIT, ZOSYN 2.25GM IV Q8H, BLOOD CULTURES, OBTAIN VENOUS DOPPLER, CONTINUE TO MONITOR (2) Hypotension Status: Acute Qualifiers: Hypotension type: unspecified hypotension type Qualified Code(s): I95.9 - Hypotension, unspecified 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
[2018-09-06] MEDS: INDERAL TAB 10 MG PO SCH (20:41)
[2018-09-07] MEDS: ABILIFY PO SCH ×2 (02:33→21:13)
[2018-09-07 06:21] LABS: BASOPHILS % (AUTO) 0.2 % (0.2-1.0); EOSINOPHILS # (AUTO) 0.1 x10^3/uL (0.0-0.2); HEMATOCRIT 34.7 % (36.0-47.0); HEMOGLOBIN 12.2 g/dL (12.0-16.0); LYMPHOCYTES # (AUTO) 0.7 X10^3/uL (1.3-2.9); LYMPHOCYTES % (AUTO) 9.7 % (21.0-51.0); MEAN CORPUSCULAR HEMOGLOBIN 33.3 pg (27.0-34.0); MEAN CORPUSCULAR HGB CONC 35.1 g/dL (33.0-35.0); MEAN CORPUSCULAR VOLUME 94.7 fL (80.0-100.0); MEAN PLATELET VOLUME 7.5 fL (7.4-11.0); MONOCYTES # (AUTO) 0.3 x10^3/uL (0.3-0.8); MONOCYTES % (AUTO) 4.2 % (0.0-13.0); NEUTROPHILS # (AUTO) 6.5 x10^3/uL (2.2-4.8); NEUTROPHILS % (AUTO) 84.9 % (42.0-75.0); PLATELET COUNT 129 X10^3/uL (150.0-450.0); RED BLOOD COUNT 3.66 X10^6/uL (3.5-5.4); RED CELL DISTRIBUTION WIDTH 14.1 % (11.6-16.5); WHITE BLOOD COUNT 7.7 X10^3/uL (3.6-10.0)
[2018-09-07] MEDS: ZOSYN VIAL 2.25 GRAMS 2.25 G in NS 100 ML IV + SPIKE MINIBAG* 100 ML IV SCH ×3 (06:26→21:13)
[2018-09-07 06:38] LABS: ALANINE AMINOTRANSFERASE 15 Units/L (12-78); ALBUMIN 2.3 g/dL (3.4-5.0); ALKALINE PHOSPHATASE 47 Units/L (46-116); ASPARTATE AMINO TRANSFERASE 8 Units/L (15-37); BLOOD UREA NITROGEN 17 mg/dL (7-18); CALCIUM 8.6 mg/dL (8.5-10.1); CARBON DIOXIDE 24.3 mmol/L (21-32); CHLORIDE 98 mmol/L (98-107); CREATININE 0.81 mg/dL (0.55-1.02); MAGNESIUM 1.7 mg/dL (1.7-2.9); SODIUM 131 mmol/L (136-145); TOTAL PROTEIN 5.6 g/dL (6.4-8.2); eGFR NON BLACK RACES > 60 (>60)
[2018-09-07 07:09] LABS: B-TYPE NATRIURETIC PEPTIDE 67.9 pg/mL (0-79)
[2018-09-07] MEDS ORDERED: LEXAPRO ONE (08:16)
[2018-09-07] MEDS: WELLBUTRIN XL 300 MG (DAILY) PO SCH (08:41)
[2018-09-07] MEDS: VITAMIN D3 PO SCH (08:41)
[2018-09-07] MEDS: DITROPAN TAB 5 MG PO SCH (08:41)
[2018-09-07] MEDS: DEPAKOTE ER PO SCH ×2 (08:42→21:13)
[2018-09-07] MEDS: ZANTAC PO SCH (08:42)
[2018-09-07] MEDS: ZyrTEC TAB 10 MG PO SCH (08:42)
[2018-09-07] MEDS: SYNTHROID 50 mcg TAB PO SCH (08:42)
[2018-09-07] MEDS: LEXAPRO PO SCH (08:42)
[2018-09-07] MEDS: PriLOSEC PO SCH (08:42)
[2018-09-07] MEDS: FLONASE NASAL SPRAY ENOSTRIL SCH ×2 (08:43→21:13)
[2018-09-07] MEDS ORDERED: NS 1000 ML 1,000 ML ONE (10:40)
[2018-09-07] MEDS: TYLENOL 325 MG TAB PO PRN (21:15)
[2018-09-08] MEDS: ZOSYN VIAL 2.25 GRAMS 2.25 G in NS 100 ML IV + SPIKE MINIBAG* 100 ML IV SCH ×3 (06:12→20:59)
[2018-09-08 06:35] LABS: ALANINE AMINOTRANSFERASE 16 Units/L (12-78); ALBUMIN 2.2 g/dL (3.4-5.0); ALKALINE PHOSPHATASE 47 Units/L (46-116); ASPARTATE AMINO TRANSFERASE 9 Units/L (15-37); BLOOD UREA NITROGEN 11 mg/dL (7-18); CALCIUM 8.1 mg/dL (8.5-10.1); CARBON DIOXIDE 23.6 mmol/L (21-32); CHLORIDE 96 mmol/L (98-107); COR CA(FOR HYPOALB) 9.5 mg/dL (8.5-10.1); CREATININE 0.67 mg/dL (0.55-1.02); SODIUM 130 mmol/L (136-145); TOTAL PROTEIN 5.4 g/dL (6.4-8.2); eGFR NON BLACK RACES > 60 (>60)
[2018-09-08 06:36] LABS: BASOPHILS % (AUTO) 0.8 % (0.2-1.0); EOSINOPHILS # (AUTO) 0.1 x10^3/uL (0.0-0.2); EOSINOPHILS % (AUTO) 2.5 % (0.9-2.9); HEMATOCRIT 33.7 % (36.0-47.0); HEMOGLOBIN 11.7 g/dL (12.0-16.0); LYMPHOCYTES # (AUTO) 0.8 X10^3/uL (1.3-2.9); LYMPHOCYTES % (AUTO) 15.2 % (21.0-51.0); MEAN CORPUSCULAR HEMOGLOBIN 32.9 pg (27.0-34.0); MEAN CORPUSCULAR HGB CONC 34.6 g/dL (33.0-35.0); MEAN CORPUSCULAR VOLUME 95.3 fL (80.0-100.0); MEAN PLATELET VOLUME 7.8 fL (7.4-11.0); MONOCYTES # (AUTO) 0.3 x10^3/uL (0.3-0.8); MONOCYTES % (AUTO) 5.2 % (0.0-13.0); NEUTROPHILS # (AUTO) 4.2 x10^3/uL (2.2-4.8); NEUTROPHILS % (AUTO) 76.3 % (42.0-75.0); PLATELET COUNT 127 X10^3/uL (150.0-450.0); RED BLOOD COUNT 3.54 X10^6/uL (3.5-5.4); RED CELL DISTRIBUTION WIDTH 14.6 % (11.6-16.5); WHITE BLOOD COUNT 5.6 X10^3/uL (3.6-10.0)
[2018-09-08] MEDS ORDERED: LEXAPRO ONE (08:01)
[2018-09-08] MEDS ORDERED: ZOFRAN INJ 4 MG VIAL IVP PRN (08:18)
[2018-09-08] MEDS: ZyrTEC TAB 10 MG PO SCH (09:13)
[2018-09-08] MEDS: SYNTHROID 50 mcg TAB PO SCH (09:13)
[2018-09-08] MEDS: VITAMIN D3 PO SCH (09:13)
[2018-09-08] MEDS: DITROPAN TAB 5 MG PO SCH (09:13)
[2018-09-08] MEDS: DEPAKOTE ER PO SCH ×2 (09:13→20:58)
[2018-09-08] MEDS: LEXAPRO PO SCH (09:13)
[2018-09-08] MEDS: WELLBUTRIN XL 300 MG (DAILY) PO SCH (09:13)
[2018-09-08] MEDS: ZANTAC PO SCH (09:13)
[2018-09-08] MEDS: PriLOSEC PO SCH (09:14)
[2018-09-08] MEDS: FLONASE NASAL SPRAY ENOSTRIL SCH ×2 (09:14→20:58)
--- NOTE | 2018-09-08 09:34 | PCM.PROG ---
Progress Note - Progress Note for Day of Date of Exam: 09/07/18 - Subjective Subjective: WAS ADMITTED FOR LOWER EXTREMITY CELLULITIS AND HYPOTENSION. TODAY, SHE IS ALERT AND ORIENTED, LYING IN BED ON MORNING ROUNDS. SHE CONTINUES WITH ERYTHEMA AND EDEMA TO LOWER EXTREMITIES WELL SHORTNESS OF BREATH. THE DOPAMINE DRIP THAT SHE WAS ON WAS DISCONTINUED YESTERDAY AND HER BLOOD PRESSURE HAS REMAINED STABLE SINCE. HER VITALS TODAY ARE 98.1-101-16-97%-140/66. LABS WERE OBTAINED. ABNORMAL LAB VALUES INCLUDE THE FOLLOWING: HCT 34.7, PLT COUNT 129, SODIUM 131, AST 8, TOTAL PROTEIN 5.6, ALBUMIN 2.3. BILATERAL LOWER EXTREMITY DVTs WERE OBTAINED YESTERDAY AND REVEALED NO EVIDENCE FOR DEEP VENOUS THROMBOSIS IN EITHER LOWER EXTREMITY. SHE CONTINUES TO RECEIVE IV ZOSYN. WE WILL CONTINUE WITH CURRENT PLAN OF CARE TODAY. OTHERWISE, WE PLAN TO FOLLOW UP WITH AM LABS AND CONTINUE TO MONITOR PATIENT. - Past Medical Family Social History Past Med/Fam/Surg Hx: No changes since H&P Allergies: Allergies simvastatin Allergy (Verified 04/11/18 10:07) - Review of Systems ROS: No change since H&P - Vital Signs and I&O's Vital Signs: Temperature 98.7 F Pulse Rate [Right Brachial] 74 Pulse Rate 84 Respiratory Rate 30 Blood Pressure [Right Arm] 79/43 Blood Pressure [Left Arm] 140/73 Blood Pressure 127/76 O2 Sat by Pulse Oximetry 97 Intake and Output: Intake & Output 09/05/18 09/06/18 09/07/18 09/08/18 11:59 11:59 11:59 11:59 Intake Total 1877 / 1877 1950 / 1950 2044 / 2044 Output Total 2450 / 2450 1800 / 1800 2250 / 2250 Balance -573 / -573 150 / 150 -205 / -205 - Physical Exam Oriented: Normal Eyes: Normal Ear: Normal Nose: Normal Throat: Normal Respiratory: Generalized, Diminished Cardiovascular: Edema (BLE 2+ PITTING EDEMA ). negative: S3, S4, Murmur : Normal Auscultation: Bowel Sounds: Normal Palpation: Normal Tenderness: Normal Skin: Red, Tender, Hot (BILATERAL LOWER EXTREMITIES ), Bruising Musculoskeletal: Right, Left, Leg, Swelling, Tender Psychiatric: Normal Mood Description: Calm Affect: Normal Speech Pattern: Clear, Appropriate - Laboratory and Diagnostics Result Diagrams: 09/08/18 06:00 09/08/18 06:00 Labs: Laboratory WBC 5.6 X10^3/uL (3.6-10.0) 09/08/18 06:00 RBC 3.54 X10^6/uL (3.5-5.4) 09/08/18 06:00 Hgb 11.7 g/dL (12.0-16.0) L 09/08/18 06:00 Hct 33.7 % (36.0-47.0) L 09/08/18 06:00 MCV 95.3 fL (80.0-100.0) 09/08/18 06:00 MCH 32.9 pg (27.0-34.0) 09/08/18 06:00 MCHC 34.6 g/dL (33.0-35.0) 09/08/18 06:00 RDW 14.6 % (11.6-16.5) 09/08/18 06:00 Plt Count 127 X10^3/uL (150.0-450.0) L 09/08/18 06:00 Plt Count Comment Adequate (ADEQUATE) 09/06/18 05:21 MPV 7.8 fL (7.4-11.0) 09/08/18 06:00 Neut % (Auto) 76.3 % (42.0-75.0) H 09/08/18 06:00 Lymph % (Auto) 15.2 % (21.0-51.0) L 09/08/18 06:00 [place] % (Auto) 5.2 % (0.0-13.0) 09/08/18 06:00 Eos % (Auto) 2.5 % (0.9-2.9) 09/08/18 06:00 Baso % (Auto) 0.8 % (0.2-1.0) 09/08/18 06:00 Neut # (Auto) 4.2 x10^3/uL (2.2-4.8) 09/08/18 06:00 Lymph # (Auto) 0.8 X10^3/uL (1.3-2.9) L 09/08/18 06:00 [place] # (Auto) 0.3 x10^3/uL (0.3-0.8) 09/08/18 06:00 Eos # (Auto) 0.1 x10^3/uL (0.0-0.2) 09/08/18 06:00 Baso # (Auto) 0.0 X10^3/uL (0.0-0.1) 09/08/18 06:00 Absolute Nucleated RBC 0.0 /100WBC 09/08/18 06:00 Total Counted 100 09/06/18 05:21 Neutrophils % (Manual) 90 % (39-76) H 09/06/18 05:21 Band Neutrophils % 2 % (0-10) 09/06/18 05:21 Lymphocytes % (Manual) 6 % (13-43) L 09/06/18 05:21 Monocytes % (Manual) 2 % (4-9) L 09/06/18 05:21 Plt Morphology Comment Normal (NORMAL) 09/06/18 05:21 RBC Morphology Normal (NORMAL) 09/06/18 05:21 D-Dimer < 100 ng/mL (0-400) 09/06/18 05:20 Sodium 130 mmol/L (136-145) L 09/08/18 06:00 Corrected Sodium TNP 09/08/18 06:00 Potassium 3.9 mmol/L (3.5-5.1) 09/08/18 06:00 Chloride 96 mmol/L (98-107) L 09/08/18 06:00 Carbon Dioxide 23.6 mmol/L (21-32) 09/08/18 06:00 BUN 11 mg/dL (7-18) 09/08/18 06:00 Creatinine 0.67 mg/dL (0.55-1.02) 09/08/18 06:00 Est GFR (MDRD) Af Amer > 60 (>60) 09/08/18 06:00 Est GFR (MDRD) Non-Af > 60 (>60) 09/08/18 06:00 Glucose 88 mg/dL (65-99) 09/08/18 06:00 Lactic Acid 1.2 mmol/L (0.4-2.0) 09/05/18 16:09 Calcium 8.1 mg/dL (8.5-10.1) L 09/08/18 06:00 Corrected Calcium 9.5 mg/dL (8.5-10.1) 09/08/18 06:00 Magnesium 1.7 mg/dL (1.7-2.9) 09/07/18 05:30 Total Bilirubin 0.40 mg/dL (0.2-1.0) 09/08/18 06:00 AST 9 Units/L (15-37) L 09/08/18 06:00 ALT 16 Units/L (12-78) 09/08/18 06:00 Alkaline Phosphatase 47 Units/L (46-116) 09/08/18 06:00 Creatine Kinase 56 Units/L (26-192) 09/06/18 05:21 CK-MB (CK-2) 1.3 ng/mL (0-4.0) 09/06/18 05:21 CK/CKMB % Calc 2.3 % (<4) 09/06/18 05:21 Troponin I < 0.02 ng/mL (0-1.5) 09/06/18 05:21 B-Natriuretic Peptide 67.9 pg/mL (0-79) 09/07/18 05:30 Total Protein 5.4 g/dL (6.4-8.2) L 09/08/18 06:00 Albumin 2.2 g/dL (3.4-5.0) L 09/08/18 06:00 Globulin 3.2 g/dL (2.5-4.5) 09/08/18 06:00 Albumin/Globulin Ratio 0.7 Ratio (1.1-2.1) L 09/08/18 06:00 Specimen Type Catherized urine 09/05/18 22:25 Urine Color Yellow (YELLOW) 09/05/18 22: Urine Appearance Clear (CLEAR) 09/05/18 22: Urine pH 7.0 (5.0 - 8.0) 09/05/18 22:25 Ur Specific [place] 1.005 (1.000-1.030) 09/05/18 22: Urine Protein Negative (NEGATIVE) 09/05/18 22: Urine Glucose (UA) Negative (NEGATIVE) 09/05/18 22: Urine Ketones Negative (NEGATIVE) 09/05/18 22:25 Urine Occult Blood Negative (NEGATIVE) 09/05/18 22: Urine Nitrite Negative (NEGATIVE) 09/05/18 22: Urine Bilirubin Negative (NEGATIVE) 10/15/18 22:25 Urine Urobilinogen Normal (NORMAL) 09/05/18 22:25 Ur Leukocyte Esterase Negative (NEGATIVE) 09/05/18 22:25 - Plan (1) Cellulitis of both lower extremities Status: Acute Plan: ZOSYN 2.25GM IV Q8H, BLOOD CULTURES, CONTINUE TO MONITOR (2) Hypotension Status: Acute Qualifiers: Hypotension type: unspecified hypotension type Qualified Code(s): I95.9 - Hypotension, unspecified Plan: MANAGER GENERAL, 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
[2018-09-08] MEDS: TYLENOL 325 MG TAB PO PRN (15:12)
[2018-09-08] MEDS: ABILIFY PO SCH (20:58)
[2018-09-09] MEDS: ZOSYN VIAL 2.25 GRAMS 2.25 G in NS 100 ML IV + SPIKE MINIBAG* 100 ML IV SCH ×3 (05:16→21:21)
[2018-09-09 06:38] LABS: BASOPHILS % (AUTO) 0.9 % (0.2-1.0); EOSINOPHILS # (AUTO) 0.2 x10^3/uL (0.0-0.2); EOSINOPHILS % (AUTO) 4.2 % (0.9-2.9); HEMOGLOBIN 12.5 g/dL (12.0-16.0); LYMPHOCYTES # (AUTO) 0.8 X10^3/uL (1.3-2.9); LYMPHOCYTES % (AUTO) 17.5 % (21.0-51.0); MEAN CORPUSCULAR HEMOGLOBIN 32.9 pg (27.0-34.0); MEAN CORPUSCULAR HGB CONC 34.6 g/dL (33.0-35.0); MEAN CORPUSCULAR VOLUME 95.2 fL (80.0-100.0); MEAN PLATELET VOLUME 7.7 fL (7.4-11.0); MONOCYTES # (AUTO) 0.3 x10^3/uL (0.3-0.8); MONOCYTES % (AUTO) 6.3 % (0.0-13.0); NEUTROPHILS # (AUTO) 3.1 x10^3/uL (2.2-4.8); NEUTROPHILS % (AUTO) 71.1 % (42.0-75.0); PLATELET COUNT 156 X10^3/uL (150.0-450.0); RED BLOOD COUNT 3.79 X10^6/uL (3.5-5.4); RED CELL DISTRIBUTION WIDTH 14.5 % (11.6-16.5); WHITE BLOOD COUNT 4.4 X10^3/uL (3.6-10.0)
[2018-09-09 06:40] LABS: ALANINE AMINOTRANSFERASE 16 Units/L (12-78); ALBUMIN 2.3 g/dL (3.4-5.0); ALKALINE PHOSPHATASE 41 Units/L (46-116); ASPARTATE AMINO TRANSFERASE 8 Units/L (15-37); BLOOD UREA NITROGEN 15 mg/dL (7-18); CALCIUM 8.3 mg/dL (8.5-10.1); CARBON DIOXIDE 24.2 mmol/L (21-32); CHLORIDE 98 mmol/L (98-107); COR CA(FOR HYPOALB) 9.7 mg/dL (8.5-10.1); SODIUM 132 mmol/L (136-145); TOTAL PROTEIN 5.6 g/dL (6.4-8.2); eGFR NON BLACK RACES > 60 (>60)
[2018-09-09 07:17] LABS: BAND NEUTROPHILS % 1 % (0-10); PLATELET MORPHOLOGY COMMENT NORMAL (NORMAL)
[2018-09-09] MEDS ORDERED: LEXAPRO ONE (09:15)
[2018-09-09] MEDS: ZyrTEC TAB 10 MG PO SCH (09:26)
[2018-09-09] MEDS: DEPAKOTE ER PO SCH ×2 (09:26→21:02)
[2018-09-09] MEDS: ZANTAC PO SCH (09:26)
[2018-09-09] MEDS: LEXAPRO PO SCH (09:27)
[2018-09-09] MEDS: WELLBUTRIN XL 300 MG (DAILY) PO SCH (09:27)
[2018-09-09] MEDS: DITROPAN TAB 5 MG PO SCH (09:27)
[2018-09-09] MEDS: FLONASE NASAL SPRAY ENOSTRIL SCH ×2 (09:27→21:03)
[2018-09-09] MEDS: PriLOSEC PO SCH (09:27)
[2018-09-09] MEDS: SYNTHROID 50 mcg TAB PO SCH (09:27)
--- NOTE | 2018-09-09 09:33 | PCM.PROG ---
Progress Note - Progress Note for Day of Date of Exam: 09/08/18 - Subjective Subjective: WAS ADMITTED FOR LOWER EXTREMITY CELLULITIS AND HYPOTENSION. TODAY, SHE IS ALERT AND ORIENTED, LYING IN BED ON MORNING ROUNDS. SHE CONTINUES WITH ERYTHEMA AND EDEMA TO LOWER EXTREMITIES WELL SHORTNESS OF BREATH, BUT REPORTS SLIGHT IMPROVEMENT IN SHORTNESS OF BREATH SINCE YESTE RDAY. SHE ALSO COMPLAINS OF NAUSEA AND VOMITING FOR THE PAST FEW HOURS. HER BLOOD PRESSURE HAS REMAINED STABLE OFF THE DRIP. HER VITALS TODAY ARE 98.4-96-22-95%-126/77. LABS WERE OBTAINED. ABNORMAL LAB VALUES INCLUDE THE FOLLOWING: HGB 11.7, HCT 33.7, PLT COUNT 127, SODIUM 130, CHLORIDE 96, CALCIUM 8.1, AST 9, TOTAL PROTEIN 5.4, ALBUMIN 2.2. SHE CONTINUES TO RECEIVE IV ZOSYN. TODAY, WE WILL ADD ZOFRAN IV PRN WELL PHENERGAN IV PRN FOR NAUSEA AND VOMITING. OTHERWISE, WE WILL CONTINUE WITH CURRENT PLAN OF CARE TODAY. WE PLAN TO FOLLOW UP WITH AM LABS AND CONTINUE TO MONITOR PATIENT. - Past Medical Family Social History Past Med/Fam/Surg Hx: No changes since H&P Allergies: Allergies simvastatin Allergy (Verified 04/11/18 10:07) - Review of Systems ROS: No change since H&P - Vital Signs and I&O's Vital Signs: Temperature 97.6 F Pulse Rate [Right Brachial] 94 Pulse Rate 99 Respiratory Rate 20 Blood Pressure [Right Arm] 127/68 Blood Pressure [Left Arm] 140/73 Blood Pressure 126/77 O2 Sat by Pulse Oximetry 97 Intake and Output: Intake & Output 09/06/18 09/07/18 09/08/18 09/09/18 11:59 11:59 11:59 11:59 Intake Total 1877 / 1877 1950 / 1950 2045 / 2045 1600 / 1600 Output Total 2450 / 2450 1800 / 1800 2250 / 2250 Balance -573 / -573 150 / 150 -205 / -205 1600 / 1600 - Physical Exam Oriented: Normal Eyes: Normal Ear: Normal Nose: Normal Throat: Normal Respiratory: Generalized, Diminished Cardiovascular: Edema (BLE 2+ PITTING EDEMA ). negative: S3, S4, Murmur : Normal Auscultation: Bowel Sounds: Normal Palpation: Normal Tenderness: Normal Skin: Red, Tender, Hot (BILATERAL LOWER EXTREMITIES ), Bruising Musculoskeletal: Right, Left, Leg, Swelling, Tender Psychiatric: Normal Mood Description: Calm Affect: Normal Speech Pattern: Clear, Appropriate - Laboratory and Diagnostics Result Diagrams: 09/09/18 05:22 09/09/18 05:22 Labs: 09/06/18 11:25 Blood Blood Culture - Preliminary 09/06/18 11:20 Blood Blood Culture - Preliminary Laboratory WBC 4.4 X10^3/uL (3.6-10.0) 09/09/18 05:22 RBC 3.79 X10^6/uL (3.5-5.4) 09/09/18 05:22 Hgb 12.5 g/dL (12.0-16.0) 09/09/18 05:22 Hct 36.0 % (36.0-47.0) 09/09/18 05:22 MCV 95.2 fL (80.0-100.0) 09/09/18 05:22 MCH 32.9 pg (27.0-34.0) 09/09/18 05:22 MCHC 34.6 g/dL (33.0-35.0) 09/09/18 05:22 RDW 14.5 % (11.6-16.5) 09/09/18 05:22 Plt Count 156 X10^3/uL (150.0-450.0) 09/09/18 05:22 Plt Count Comment Adequate (ADEQUATE) 09/09/18 05:22 MPV 7.7 fL (7.4-11.0) 09/09/18 05:22 Neut % (Auto) 71.1 % (42.0-75.0) 09/09/18 05:22 Lymph % (Auto) 17.5 % (21.0-51.0) L 09/09/18 05:22 [place] % (Auto) 6.3 % (0.0-13.0) 09/09/18 05:22 Eos % (Auto) 4.2 % (0.9-2.9) H 09/09/18 05:22 Baso % (Auto) 0.9 % (0.2-1.0) 09/09/18 05:22 Neut # (Auto) 3.1 x10^3/uL (2.2-4.8) 09/09/18 05:22 Lymph # (Auto) 0.8 X10^3/uL (1.3-2.9) L 09/09/18 05:22 [place] # (Auto) 0.3 x10^3/uL (0.3-0.8) 09/09/18 05:22 Eos # (Auto) 0.2 x10^3/uL (0.0-0.2) 09/09/18 05:22 Baso # (Auto) 0.0 X10^3/uL (0.0-0.1) 09/09/18 05:22 Absolute Nucleated RBC 0.0 /100WBC 09/09/18 05:22 Total Counted 100 09/09/18 05:22 Neutrophils % (Manual) 61 % (39-76) 09/09/18 05:22 Band Neutrophils % 1 % (0-10) 09/09/18 05:22 Lymphocytes % (Manual) 29 % (13-43) 09/09/18 05:22 Monocytes % (Manual) 3 % (4-9) L 09/09/18 05:22 Eosinophils % (Manual) 6 % (0-6) 09/09/18 05:22 Plt Morphology Comment Normal (NORMAL) 09/09/18 05:22 RBC Morphology Normal (NORMAL) 09/09/18 05:22 D-Dimer < 100 ng/mL (0-400) 09/06/18 05:20 Sodium 132 mmol/L (136-145) L 09/09/18 05:22 Corrected Sodium TNP 09/09/18 05:22 Potassium 4.2 mmol/L (3.5-5.1) 09/09/18 05:22 Chloride 98 mmol/L (98-107) 09/09/18 05:22 Carbon Dioxide 24.2 mmol/L (21-32) 09/09/18 05:22 BUN 15 mg/dL (7-18) 09/09/18 05:22 Creatinine 0.80 mg/dL (0.55-1.02) 09/09/18 05:22 Est GFR (MDRD) Af Amer > 60 (>60) 09/09/18 05:22 Est GFR (MDRD) Non-Af > 60 (>60) 09/09/18 05:22 Glucose 85 mg/dL (65-99) 09/09/18 05:22 Lactic Acid 1.2 mmol/L (0.4-2.0) 09/05/18 16:09 Calcium 8.3 mg/dL (8.5-10.1) L 09/09/18 05:22 Corrected Calcium 9.7 mg/dL (8.5-10.1) 09/09/18 05:22 Magnesium 1.7 mg/dL (1.7-2.9) 09/07/18 05:30 Total Bilirubin 0.20 mg/dL (0.2-1.0) 09/09/18 05:22 AST 8 Units/L (15-37) L 09/09/18 05:22 ALT 16 Units/L (12-78) 09/09/18 05:22 Alkaline Phosphatase 41 Units/L (46-116) L 09/09/18 05:22 Creatine Kinase 56 Units/L (26-192) 09/06/18 05:21 CK-MB (CK-2) 1.3 ng/mL (0-4.0) 09/06/18 05:21 CK/CKMB % Calc 2.3 % (<4) 09/06/18 05:21 Troponin I < 0.02 ng/mL (0-1.5) 09/06/18 05:21 B-Natriuretic Peptide 67.9 pg/mL (0-79) 09/07/18 05:30 Total Protein 5.6 g/dL (6.4-8.2) L 09/09/18 05:22 Albumin 2.3 g/dL (3.4-5.0) L 09/09/18 05:22 Globulin 3.3 g/dL (2.5-4.5) 09/09/18 05:22 Albumin/Globulin Ratio 0.7 Ratio (1.1-2.1) L 09/09/18 05:22 Specimen Type Catherized urine 09/05/18 22:25 Urine Color Yellow (YELLOW) 09/05/18 22:25 Urine Appearance Clear (CLEAR) 09/05/18 22:25 Urine pH 7.0 (5.0 - 8.0) 09/05/18 22:25 Ur Specific [place] 1.005 (1.000-1.030) 09/05/18 22:25 Urine Protein Negative (NEGATIVE) 09/05/18 22:25 Urine Glucose (UA) Negative (NEGATIVE) 09/05/18 22:25 Urine Ketones Negative (NEGATIVE) 09/05/18 22:25 Urine Occult Blood Negative (NEGATIVE) 09/05/18 22:25 Urine Nitrite Negative (NEGATIVE) 09/05/18 22:25 Urine Bilirubin Negative (NEGATIVE) 09/05/18 22:25 Urine Urobilinogen Normal (NORMAL) 09/05/18 22:25 Ur Leukocyte Esterase Negative (NEGATIVE) 09/05/18 22:25 - Plan (1) Cellulitis of both lower extremities Status: Acute Plan: ZOSYN 2.25GM IV Q8H, BLOOD CULTURES, CONTINUE TO MONITOR (2) Nausea and vomiting Status: Acute Qualifiers: Vomiting type: unspecified Vomiting Intractability: unspecified Qualified Code(s): R11.2 - Nausea with vomiting, unspecified Plan: ZOFRAN IV PRN, PHENERGAN IV PRN, CONTINUE TO MONITOR (3) Hypotension Status: Resolved Qualifiers: Hypotension type: unspecified hypotension type Qualified Code(s): I95.9 - Hypotension, unspecified Plan: [employer], 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
[2018-09-09] MEDS: VITAMIN D3 PO SCH (11:00)
[2018-09-09] MEDS: INDERAL TAB 10 MG PO SCH ×2 (14:40→21:20)
[2018-09-09] MEDS: ABILIFY PO SCH (21:02)
[2018-09-10] MEDS: ZOSYN VIAL 2.25 GRAMS 2.25 G in NS 100 ML IV + SPIKE MINIBAG* 100 ML IV SCH ×2 (05:06→14:52)
[2018-09-10] MEDS: INDERAL TAB 10 MG PO SCH ×2 (05:06→14:52)
[2018-09-10 06:34] LABS: BASOPHILS % (AUTO) 0.6 % (0.2-1.0); EOSINOPHILS # (AUTO) 0.3 x10^3/uL (0.0-0.2); EOSINOPHILS % (AUTO) 4.7 % (0.9-2.9); HEMATOCRIT 35.1 % (36.0-47.0); HEMOGLOBIN 12.1 g/dL (12.0-16.0); LYMPHOCYTES % (AUTO) 16.8 % (21.0-51.0); MEAN CORPUSCULAR HEMOGLOBIN 32.9 pg (27.0-34.0); MEAN CORPUSCULAR HGB CONC 34.5 g/dL (33.0-35.0); MEAN CORPUSCULAR VOLUME 95.6 fL (80.0-100.0); MEAN PLATELET VOLUME 7.2 fL (7.4-11.0); MONOCYTES # (AUTO) 0.4 x10^3/uL (0.3-0.8); MONOCYTES % (AUTO) 7.3 % (0.0-13.0); NEUTROPHILS # (AUTO) 4.2 x10^3/uL (2.2-4.8); NEUTROPHILS % (AUTO) 70.6 % (42.0-75.0); PLATELET COUNT 174 X10^3/uL (150.0-450.0); RED BLOOD COUNT 3.67 X10^6/uL (3.5-5.4); RED CELL DISTRIBUTION WIDTH 14.4 % (11.6-16.5); WHITE BLOOD COUNT 5.9 X10^3/uL (3.6-10.0)
[2018-09-10 07:07] LABS: ALANINE AMINOTRANSFERASE 17 Units/L (12-78); ALBUMIN 2.5 g/dL (3.4-5.0); ALKALINE PHOSPHATASE 42 Units/L (46-116); BLOOD UREA NITROGEN 17 mg/dL (7-18); CALCIUM 8.2 mg/dL (8.5-10.1); CARBON DIOXIDE 24.7 mmol/L (21-32); CHLORIDE 98 mmol/L (98-107); COR CA(FOR HYPOALB) 9.4 mg/dL (8.5-10.1); CREATININE 0.76 mg/dL (0.55-1.02); MAGNESIUM 1.5 mg/dL (1.7-2.9); SODIUM 132 mmol/L (136-145); TOTAL PROTEIN 5.7 g/dL (6.4-8.2); eGFR NON BLACK RACES > 60 (>60)
[2018-09-10 07:12] LABS: ASPARTATE AMINO TRANSFERASE 11 Units/L (15-37)
[2018-09-10 07:16] LABS: BAND NEUTROPHILS % 4 % (0-10); BASOPHILS % (MANUAL) 1 % (0-1); METAMYELOCYTES % 2; PLATELET MORPHOLOGY COMMENT NORMAL (NORMAL)
[2018-09-10] MEDS ORDERED: LEXAPRO ONE (09:05)
[2018-09-10] MEDS: DEPAKOTE ER PO SCH (09:40)
[2018-09-10] MEDS: ZANTAC PO SCH (09:41)
[2018-09-10] MEDS: PriLOSEC PO SCH (09:41)
[2018-09-10] MEDS: SYNTHROID 50 mcg TAB PO SCH (09:41)
[2018-09-10] MEDS: VITAMIN D3 PO SCH (09:41)
[2018-09-10] MEDS: WELLBUTRIN XL 300 MG (DAILY) PO SCH (09:41)
[2018-09-10] MEDS: ZyrTEC TAB 10 MG PO SCH (09:41)
[2018-09-10] MEDS: DITROPAN TAB 5 MG PO SCH (09:42)
[2018-09-10] MEDS: LEXAPRO PO SCH (09:42)
[2018-09-10] MEDS: FLONASE NASAL SPRAY ENOSTRIL SCH (09:42)
[2018-09-10 14:51] VITALS: BP 135/84
--- NOTE | 2018-10-25 23:44 | DR.CARTERD ---
- Discharge Summary for: Discharge Summary for Date of:: 09/10/18 - Admission Date Date of Admission: 09/05/18 - Admission Diagnoses Admission Diagnosis: (1) Cellulitis of both lower extremities (2) Hypotension - Discharge Date Discharge Date: 09/10/18 - Discharge Diagnoses Discharge Diagnosis: (1) Cellulitis of both lower extremities (2) Nausea and vomiting (3) Hypotension - Hospital Course Hospital Course: DAY ONE, IS A 67 YEAR OLD PATIENT OF OURS WHO PRESENTED TO THE EMERGENCY ROOM WITH REPORTS OF FALLING THIS PAST WEDNESDAY. SHE REPORTED THAT SHE WOKE UP ON WEDNESDAY AND BOTH LEGS HAVE BEEN RED AND SWOLLEN. ON ARRIVAL, PATIENT NOTED WITH 2+ PITTING EDEMA AND ERYTHMA TO BILATERAL LOWER EXTREMITIES. SHE ALSO COMPLAINED OF SHORTNESS OF BREATH. ON ARRIVAL, VITALS WERE 98.7-93-18-96%-80/51. LABS WERE OBTAINED. ABNORMAL LAB VALUES INCLUDE THE FOLLOWING: WBC 14.8, RBC 3.45, HGB 11.3, HCT 32.8, PLT COUNT 138, SODIUM 129, CHLORIDE 95, BUN 20, CREATININE 1.10, CALCIUM 7.7, AST 8, ALK PHOS 37, TOTAL PROTEIN 4.8, ALBUMIN 2.3. URINALYSIS UNREMARKABLE. A CHEST XRAY WAS OBTAINED AND REVEALED: There are no consolidating pulmonary infiltrates. The pleural spaces are clear low lung volumes are demonstrated resulting in crowded interstitium. The heart size is normal, accounting for inspiratory effort. There is no mediastinal widening. There is no evidence of free air or pneumothorax. No acute bony abnormalities are observed. EKG REVEALED: SINUS RHYTHM WITH HR 77. SHE WAS GIVEN TWO ONE LITER NORMAL SALINE BOLUS IN THE ER WELL ZOSYN 2.25GM IV X 1. NO IMPROVEMENT IN BLOOD PRESSURE WAS NOTED. SHE WAS THEN STARTED ON A DOPAMINE DRIP AND ADMITTED TO THE INTENSIVE CARE UNIT FOR FURTHER EVALUATION AND TREATMENT OF HYPOTENSION AND BILATERAL LOWER EXTREMITY EDEMA AND CELLULITIS. WE PLANNED TO FOLLOW UP WITH AM LABS AND CONTINUE TO MONITOR PATIENT. DAY THREE, SHE IS ALERT AND ORIENTED, LYING IN BED ON MORNING ROUNDS. SHE CONTINUED WITH ERYTHEMA AND EDEMA TO LOWER EXTREMITIES WELL SHORTNESS OF BREATH. THE DOPAMINE DRIP THAT SHE WAS ON WAS DISCONTINUED YESTERDAY AND HER BLOOD PRESSURE REMAINED STABLE. HER VITALS TODAY ARE 98.1-101-16-97%-140/66. LABS WERE OBTAINED. ABNORMAL LAB VALUES INCLUDE THE FOLLOWING: HCT 34.7, PLT COUNT 129, SODIUM 131, AST 8, TOTAL PROTEIN 5.6, ALBUMIN 2.3. BILATERAL LOWER EXTREMITY DVTs WERE OBTAINED YESTERDAY AND REVEALED NO EVIDENCE FOR DEEP VENOUS THROMBOSIS IN EITHER LOWER EXTREMITY. SHE CONTINUED TO RECEIVE IV ZOSYN. WE CONTINUED WITH CURRENT PLAN OF CARE TODAY. WE FOLLOWED UP WITH AM LABS AND CONTINUED TO MONITOR PATIENT. DAY SIX, PATIENT'S SYMPTOMS IMPROVED AND PATIENT WASS FEELING MUCH BETTER. WBC'S RETURNED TO NORMAL LIMITS AT 5.9. ALL OTHER LABS ARE WITHIN NORMAL LIMITS FOR PATIENT. VITAL SIGNS ARE STABLE. ERYTHEMA AND EDEMA TO BILATERAL LOWER EXTREMITIES HAD SIGNIFICANTLY IMPROVED. WE PLANNED FOR DISCHARGE. INSTRUCTIONS FOR MEDICATIONS AND FOLLOW UP WERE DISCUSSED WITH PATIENT AND FAMILY, BOTH VOICED UNDERSTANDING. PATIENT WAS DISCHARGED HOME IN STABLE CONDITION WITH FAMILY. - Discharge Medications Discharge Medications: Home Medication List aripiprazole 5 mg PO HS 09/05/18 [History] cholecalciferol (vitamin D3) [Vitamin D3] 2,000 unit PO QDAY 09/05/18 [History] divalproex 500 mg PO BID 09/05/18 [History] escitalopram oxalate 10 mg PO DAILY 09/05/18 [History] fluticasone 1 spray INTRANASAL BID 09/05/18 [History] losartan-hydrochlorothiazide 1 tab PO DAILY 09/05/18 [History] omeprazole 40 mg PO DAILY 09/05/18 [History] amoxicillin-pot clavulanate [Augmentin] 1 tab PO BID #20 tab 09/10/18 [Rx] ondansetron HCl [Zofran] 4 mg PO Q8H PRN #30 tab 09/10/18 [Rx] Prescriptions: amoxicillin-pot clavulanate [Augmentin] Darshan Richard ondansetron HCl [Zofran] Darshan Richard Ambulatory Orders bupropion HCl 300 mg PO DAILY 10/20/15 cetirizine 10 mg PO DAILY 10/20/15 levothyroxine 50 mcg PO DAILY 10/20/15 oxybutynin chloride 5 mg PO DAILY 10/20/15 propranolol 10 mg PO TID 10/20/15 ranitidine HCl 150 mg PO DAILY 10/20/15 - Discharge Disposition Discharge Disposition: PATIENT TO FOLLOW UP IN OUR OFFICE IN ONE WEEK.
== END 2018-09-10 14:25 | disposition home or self-care (01) | DRG 603 ==
LOC: ER 14:40 → ICU 21:43
PROVIDERS: ADMIT Internal Medicine; ATTEND Internal Medicine
DX: E03.8 Other specified hypothyroidism; R29.6 Repeated falls; R94.4 Abnormal results of kidney function studies; R26.89 Other abnormalities of gait and mobility; W18.39XA Other fall on same level, initial encounter; R11.2 Nausea with vomiting, unspecified; R06.02 Shortness of breath; R60.0 Localized edema; L03.115 Cellulitis of right lower limb; I95.89 Other hypotension; K21.9 Gastro-esophageal reflux disease without esophagitis; I10 Essential (primary) hypertension; L03.116 Cellulitis of left lower limb
CPT/HCPCS: 36415; 71010; 71045; 80053; 81003; 82550; 82553; 83605; 83735; 83880; 84132; 84484; 85025; 85378; 87040; 93005; 93970; 96365; 96367; 96374; 96375; 97110; 97112; 97163; 97167; 97530; 97535; 99284; 99285; A4222; J0400; J1265; J2405; J2543; J3475; J3490; J7030; J7050

== ENCOUNTER 2019-02-03 09:31 | Inpatient (IN) ==
[2019-02-03 09:58] VITALS: BMI 34.7
[2019-02-03] MEDS ORDERED: NS 1000 ML 1,000 ML ONE (10:28)
[2019-02-03] MEDS ORDERED: NS 1000 ML 1,000 ML IV ONE (10:32)
--- NOTE | 2019-02-03 10:34 | DR.GENAD ---
HPI Time Seen Time Seen by Provider: 02/03/19 10:08 PCP Primary Care Physician: DANIELLE Complaint/Symptoms Chief Complaint:: EMS STATES PT. WAS HYPOTENSIVE UPON THEIR ARRIVAL, B/P 88/48. GUARDIAN STATES YESTERDAY PT. C/O FATIGUE AND PT. WAS UNABLE TO GET OUT OF HER BED BY HERSELF THIS MORNING. SHE REPORTS THAT PT. HAD A FEVER ALSO. CELLULITIS NOTED TO BLE. PT. C/O LEG PAIN. PT. SEEN DR. GOLDMAN YESTERDAY. Source History Provided: Guardian and EMS Mode of Arrival Mode of Arrival: EMS Timing Onset of Chief Complaint: 02/02/19 PMH PMH Past Medical History: Yes Past Medical History: Anemia, Depression, GERD, Hypertension, Hyperthyroidism and Hypothyroidism Past Medical History Comment: BREAST CANCER, BONE CANCER, LYMPHEDEMA Past Surgical History: Yes Surgical History: Hysterectomy, Mastectomy and Other Past Surgical History Comment: LEFT MASTECTOMY Family History History of Family Medical Conditions: Yes Family Medical History: Cancer and Hypertension Social History Does patient currently use any type of tobacco product: No Have you used tobacco products in the last 12 months: No Type of Tobacco Use: None Does any household member use tobacco: No Alcohol Use: None Do you use any recreational Drugs:: No Lives With: Other infectious screening In the last 2 months have you had wt loss of >10#?: NO Have you had fever, night sweats or hemotysis?: No Have you traveled outside the country in the last 6 months?: No Isolation: Standard PE Vital Signs Vitals: Temperature 97.7 F Pulse Rate [Right Brachial] 83 Pulse Rate 77 Respiratory Rate 22 Blood Pressure [Right Arm] 94/44 Blood Pressure [Left Arm] 106/51 Blood Pressure 108/51 O2 Sat by Pulse Oximetry 94 General Limitations: No Limitations General Appearance: Alert and In No Apparent Distress Head Head Exam: Normal Inspection and Atraumatic Eyes Eye exam: Normal Appearance, PERRL and EOMI ENT ENT Exam: Normal Exam, Normal Oropharynx and Normal External Ear Exam External Ear Exam: Normal External Inspection TM/Canal Exam: Bilateral: Normal Nose Exam: Normal Nose Exam Mouth Exam: Normal Inspection Throat Exam: Normal Inspection, Tonsillar Erythema and Tonsillomegaly Neck Neck Exam: Normal Inspection and Full ROM Chest Chest Inspection: Normal Inspection and Symmetric Chest Wall Rise Respiratory Respiratory Exam: Bilateral: Clear to Auscultation Abdominal Exam Abdominal Exam: Normal Inspection, Normal Bowel Sounds and Soft Abdominal Tenderness: RUQ and RLQ Extremities Extremities Exam: Normal Inspection and Full ROM Back Back Exam: Normal Inspection and Full ROM Neurologic Neurological Exam: Alert, Oriented X3 and CN II-XII Intact Psychiatric Psychiatric Exam: Normal Affect and Normal Mood Skin Skin Exam: Warm and Rash (macular erythematous) COURSE Treatment Treatment: NS bolus, Dopamine Drip, Ceftriaxone Consultation Called: 12:20 ROR Labs Reviewed Laboratory Results Reviewed?: Yes Result Diagrams: 02/03/19 10:15 02/03/19 10:15 Laboratory: WBC 3.4 X10^3/uL (3.6-10.0) L 02/03/19 10:15 RBC 3.65 X10^6/uL (3.5-5.4) 02/03/19 10:15 Hgb 11.4 g/dL (12.0-16.0) L 02/03/19 10:15 Hct 33.6 % (36.0-47.0) L 02/03/19 10:15 MCV 92.0 fL (80.0-100.0) 02/03/19 10:15 MCH 31.3 pg (27.0-34.0) 02/03/19 10:15 MCHC 34.0 g/dL (33.0-35.0) 02/03/19 10:15 RDW 14.9 % (11.6-16.5) 02/03/19 10:15 Plt Count 149 X10^3/uL (150.0-450.0) L 02/03/19 10:15 MPV 8.0 fL (7.4-11.0) 02/03/19 10:15 Neut % (Auto) 87.5 % (42.0-75.0) H 02/03/19 10:15 Lymph % (Auto) 9.7 % (21.0-51.0) L 02/03/19 10:15 [place] % (Auto) 2.4 % (0.0-13.0) 02/03/19 10:15 Eos % (Auto) 0.1 % (0.9-2.9) L 02/03/19 10:15 Baso % (Auto) 0.3 % (0.2-1.0) 02/03/19 10:15 Neut # (Auto) 3.0 x10^3/uL (2.2-4.8) 02/03/19 10:15 Lymph # (Auto) 0.3 X10^3/uL (1.3-2.9) L 02/03/19 10:15 [place] # (Auto) 0.1 x10^3/uL (0.3-0.8) L 02/03/19 10:15 Eos # (Auto) 0.0 x10^3/uL (0.0-0.2) 02/03/19 10:15 Baso # (Auto) 0.0 X10^3/uL (0.0-0.1) 02/03/19 10:15 Absolute Nucleated RBC 0.1 /100WBC 02/03/19 10:15 Sodium 132 mmol/L (136-145) L 02/03/19 10:15 Corrected Sodium TNP 02/03/19 10:15 Potassium 4.6 mmol/L (3.5-5.1) 02/03/19 10:15 Chloride 98 mmol/L (98-107) 02/03/19 10:15 Carbon Dioxide 24.8 mmol/L (21-32) 02/03/19 10:15 BUN 40 mg/dL (7-18) H 02/03/19 10:15 Creatinine 1.68 mg/dL (0.55-1.02) H 02/03/19 10:15 Est GFR (MDRD) Af Amer 39 (>60) L 02/03/19 10:15 Est GFR (MDRD) Non-Af 32 (>60) L 02/03/19 10:15 Glucose 105 mg/dL (65-99) H 02/03/19 10:15 Lactic Acid 2.5 mmol/L (0.4-2.0) H 02/03/19 10:15 Calcium 8.7 mg/dL (8.5-10.1) 02/03/19 10:15 Corrected Calcium 10.0 mg/dL (8.5-10.1) 02/03/19 10:15 Total Bilirubin 1.00 mg/dL (0.2-1.0) 02/03/19 10:15 AST 9 Units/L (15-37) L 02/03/19 10:15 ALT 7 Units/L (12-78) L 02/03/19 10:15 Alkaline Phosphatase 52 Units/L (46-116) 02/03/19 10:15 C-Reactive Protein 209.40 mg/L (0-3.0) H 02/03/19 10:15 Total Protein 5.9 g/dL (6.4-8.2) L 02/03/19 10:15 Albumin 2.4 g/dL (3.4-5.0) L 02/03/19 10:15 Globulin 3.5 g/dL (2.5-4.5) 02/03/19 10:15 Albumin/Globulin Ratio 0.7 Ratio (1.1-2.1) L 02/03/19 10:15 Specimen Type Catherized urine 02/03/19 11:55 Urine Color Straw (YELLOW) 02/03/19 11:55 Urine Appearance Slightly hazy (CLEAR) 02/03/19 11:55 Urine pH 5.0 (5.0 - 8.0) 02/03/19 11:55 Ur Specific [place] 1.015 (1.000-1.030) 02/03/19 11:55 Urine Protein 2+ (NEGATIVE) 02/03/19 11:55 Urine Glucose (UA) Negative (NEGATIVE) 02/03/19 11:55 Urine Ketones 1+ (NEGATIVE) 02/03/19 11:55 Urine Occult Blood 1+ (NEGATIVE) 02/03/19 11:55 Urine Nitrite Negative (NEGATIVE) 02/03/19 11:55 Urine Bilirubin 1+ (NEGATIVE) 02/03/19 11:55 Urine Urobilinogen 1+ (NORMAL) 02/03/19 11:55 Ur Leukocyte Esterase 1+ (NEGATIVE) 02/03/19 11:55 Urine RBC 0-2 /HPF (NONE SEEN) 02/03/19 11:55 Urine WBC None seen /HPF (NONE SEEN) 02/03/19 11:55 Ur Squamous Epith Cells Rare /HPF (NEGATIVE) 02/03/19 11:55 Amorphous Sediment Trace /HPF (NEGATIVE) 02/03/19 11:55 Urine Bacteria Negative /HPF (NEGATIVE) 02/03/19 11:55 Hyaline Casts Rare /LPF (NEGATIVE) 02/03/19 11:55 Urine Mucus Moderate /HPF (NEGATIVE) 02/03/19 11:55 Ur Culture Indicated? No/not indicated 02/03/19 11:55 Other Results Comments: Minimal chronic interstitial scarring is noted. Early edema cannot be excluded. The heart size is normal. No acute abnormalities are identified. XRAY XRAY Interpreted by: Radiologist Diagnosis Discharge Problem: Acute hypotension, Acute prerenal azotemia, Acute hyponatremia
[2019-02-03 10:35] LABS: BASOPHILS % (AUTO) 0.3 % (0.2-1.0); EOSINOPHILS % (AUTO) 0.1 % (0.9-2.9); HEMATOCRIT 33.6 % (36.0-47.0); HEMOGLOBIN 11.4 g/dL (12.0-16.0); LYMPHOCYTES # (AUTO) 0.3 X10^3/uL (1.3-2.9); LYMPHOCYTES % (AUTO) 9.7 % (21.0-51.0); MEAN CORPUSCULAR HEMOGLOBIN 31.3 pg (27.0-34.0); MONOCYTES # (AUTO) 0.1 x10^3/uL (0.3-0.8); MONOCYTES % (AUTO) 2.4 % (0.0-13.0); NEUTROPHILS % (AUTO) 87.5 % (42.0-75.0); PLATELET COUNT 149 X10^3/uL (150.0-450.0); RED BLOOD COUNT 3.65 X10^6/uL (3.5-5.4); RED CELL DISTRIBUTION WIDTH 14.9 % (11.6-16.5); WHITE BLOOD COUNT 3.4 X10^3/uL (3.6-10.0)
[2019-02-03 10:45] LABS: ALANINE AMINOTRANSFERASE 7 Units/L (12-78); ALBUMIN 2.4 g/dL (3.4-5.0); ALKALINE PHOSPHATASE 52 Units/L (46-116); ASPARTATE AMINO TRANSFERASE 9 Units/L (15-37); BLOOD UREA NITROGEN 40 mg/dL (7-18); CALCIUM 8.7 mg/dL (8.5-10.1); CARBON DIOXIDE 24.8 mmol/L (21-32); CHLORIDE 98 mmol/L (98-107); CREATININE 1.68 mg/dL (0.55-1.02); SODIUM 132 mmol/L (136-145); TOTAL PROTEIN 5.9 g/dL (6.4-8.2); eGFR NON BLACK RACES 32 (>60)
[2019-02-03] MEDS: ROCEPHIN VIAL 1 GRAM IVP SCH (11:05)
[2019-02-03 11:09] LABS: LACTIC ACID 2.5 mmol/L (0.4-2.0)
[2019-02-03] MEDS ORDERED: DOPAMINE IV PREMIX 400 MG/250 ML 400 MG/250 ML BAG IV ONE (11:21)
[2019-02-03] MEDS: DOPAMINE IV PREMIX 400 MG/250 ML 400 MG/250 ML BAG IV PRN ×3 (11:26→20:18)
--- NOTE | 2019-02-03 11:42 | RAD ---
HISTORY: Shortness of breath. Edema. Study: AP portable chest Comparison: 09/05/2018 Findings: Minimal chronic interstitial scarring is noted. Early edema cannot be excluded. The heart size is normal. No acute bony abnormalities are identified. IMPRESSION: 1. Findings suggesting minimal chronic interstitial scarring. 2. Early interstitial edema cannot be excluded. Clinical correlation is recommended. Reported By:
[2019-02-03 12:08] LABS: BILIRUBIN,URINE 1+ (NEGATIVE); BLOOD/HEMOGLOBIN,URINE 1+ (NEGATIVE); GLUCOSE, URINE NEGATIVE (NEGATIVE); KETONES,URINE 1+ (NEGATIVE); LEUKOCYTE ESTERASE ,URINE 1+ (NEGATIVE); NITRITES,URINE NEGATIVE (NEGATIVE); PROTEIN,URINE 2+ (NEGATIVE); UROBILINOGEN,URINE 1+ (NORMAL)
[2019-02-03 12:10] LABS: APPEARANCE,URINE SLIGHTLY HAZY (CLEAR)
[2019-02-03 12:11] LABS: COLOR,URINE STRAW (YELLOW)
[2019-02-03 12:20] LABS: AMORPHOUS SEDIMENT,UR TRACE /HPF (NEGATIVE); BACTERIA,URINE NEGATIVE /HPF (NEGATIVE); MUCUS,URINE MODERATE /HPF (NEGATIVE); RBC,URINE 0-2 /HPF (NONE SEEN); SQUAMOUS EPITHELIAL CELL,UR RARE /HPF (NEGATIVE)
[2019-02-03 12:21] LABS: HYALINE CASTS, URINE RARE /LPF (NEGATIVE)
[2019-02-03] MEDS: NS 1000 ML 1,000 ML IV SCH ×2 (13:40→23:44)
[2019-02-03 14:00] LABS: CREATINE KINASE MB 1.2 ng/mL (0-4.0)
[2019-02-03] MEDS: NORCO 5/325 MG TAB PO PRN (19:57)
[2019-02-04 05:52] LABS: ALANINE AMINOTRANSFERASE 9 Units/L (12-78); ALBUMIN 2.1 g/dL (3.4-5.0); ALKALINE PHOSPHATASE 59 Units/L (46-116); ASPARTATE AMINO TRANSFERASE 7 Units/L (15-37); BLOOD UREA NITROGEN 25 mg/dL (7-18); CALCIUM 8.4 mg/dL (8.5-10.1); CARBON DIOXIDE 24.5 mmol/L (21-32); CHLORIDE 100 mmol/L (98-107); COR CA(FOR HYPOALB) 9.9 mg/dL (8.5-10.1); CREATININE 1.03 mg/dL (0.55-1.02); SODIUM 133 mmol/L (136-145); TOTAL PROTEIN 5.8 g/dL (6.4-8.2); eGFR NON BLACK RACES 56 (>60)
[2019-02-04 06:13] LABS: BASOPHILS % (AUTO) 0.1 % (0.2-1.0); EOSINOPHILS # (AUTO) 0.1 x10^3/uL (0.0-0.2); EOSINOPHILS % (AUTO) 1.2 % (0.9-2.9); HEMATOCRIT 32.6 % (36.0-47.0); HEMOGLOBIN 11.3 g/dL (12.0-16.0); LYMPHOCYTES # (AUTO) 0.3 X10^3/uL (1.3-2.9); LYMPHOCYTES % (AUTO) 5.3 % (21.0-51.0); MEAN CORPUSCULAR HEMOGLOBIN 31.7 pg (27.0-34.0); MEAN CORPUSCULAR HGB CONC 34.7 g/dL (33.0-35.0); MEAN CORPUSCULAR VOLUME 91.6 fL (80.0-100.0); MONOCYTES # (AUTO) 0.1 x10^3/uL (0.3-0.8); MONOCYTES % (AUTO) 2.3 % (0.0-13.0); NEUTROPHILS # (AUTO) 5.1 x10^3/uL (2.2-4.8); NEUTROPHILS % (AUTO) 91.1 % (42.0-75.0); PLATELET COUNT 140 X10^3/uL (150.0-450.0); RED BLOOD COUNT 3.56 X10^6/uL (3.5-5.4); RED CELL DISTRIBUTION WIDTH 14.8 % (11.6-16.5); WHITE BLOOD COUNT 5.6 X10^3/uL (3.6-10.0)
[2019-02-04 06:48] LABS: BAND NEUTROPHILS % 18 % (0-10); PLATELET MORPHOLOGY COMMENT NORMAL (NORMAL)
[2019-02-04] MEDS: NS 1000 ML 1,000 ML IV SCH ×4 (08:05→23:16)
[2019-02-04] MEDS: NORCO 5/325 MG TAB PO PRN ×2 (08:10→20:15)
[2019-02-04] MEDS: DOPAMINE IV PREMIX 400 MG/250 ML 400 MG/250 ML BAG IV PRN ×2 (10:10→19:11)
[2019-02-04] MEDS: ROCEPHIN VIAL 1 GRAM IVP SCH (10:23)
--- NOTE | 2019-02-04 12:43 | DR.H&P ---
H&P - History & Physical for Day of: H&P Date: 02/03/19 - Chief Complaint Chief Complaint: WEAKNESS, LOW BLOOD PRESSURE. LOWER LEG REDNESS, SWELLING - History of Present Illness History of Present Illness: 68 WF ER ADMISSION. EMS STATES PT. WAS HYPOTENSIVE UPON THEIR ARRIVAL, B/P 88/48. GUARDIAN STATES YESTERDAY PT. C/O FATIGUE AND PT. WAS UNABLE TO GET OUT OF HER BED BY HERSELF THIS MORNING. SHE REPORTS THAT PT. HAD A FEVER ALSO. CELLULITIS NOTED TO BLE. PT. C/O LEG PAIN. PT. SEEN DR. GOLDMAN YESTERDAY. PT HAS PMH OF BREAST CA, HTN, OA, MR, ADONAY, MDD, CAD. PT ADMITTED FOR TREATMENT OF HYPOTENSION, LOWER EXTREMITY CELLULITIS. - Past Medical History Past Medical History: Hypertension, Depression, Hypothyroidism, Hyperthyroidism, Anemia, GERD - Past Surgical History Surgical History: Hysterectomy, Mastectomy - Family History Family Medical History: Cancer - Social History Does patient currently use any type of tobacco product: No Have you used tobacco products in the last 12 months: No Type of Tobacco Use: None Does any household member use tobacco: No Alcohol Use: None Drug Use: None - Medications Home Medications: simvastatin Allergy (Verified 01/05/19 17:43) CONTINUE taking the following medications atorvastatin 20 mg PO HS 02/03/19 [History] clopidogrel 75 mg PO DAILY 02/03/19 [History] hydrochlorothiazide 25 mg PO DAILY 02/03/19 [History] ibuprofen [IBU] 800 mg PO Q8H PRN 02/03/19 [History] melatonin 10 mg PO HS 02/03/19 [History] tamsulosin 0.4 mg PO DAILY 02/03/19 [History] temazepam 30 mg PO HS PRN 02/03/19 [History] - Review of Systems Constitutional: Weakness Eyes: No Symptoms Reported ENT: No Symptoms Reported Respiratory: Shortness of Breath Cardiovascular: Edema Gastrointestinal: Nausea Genitourinary: No Symptoms Reported Musculoskeletal: Leg Pain Skin: Other (BILATERAL LOWER LEGS REDNESS) Neurological: Weakness - Physical Exam Vital Signs: Temperature 99.0 F Pulse Rate [Right Brachial] 94 Pulse Rate 77 Respiratory Rate 24 Blood Pressure [Right Arm] 151/67 Blood Pressure [Left Arm] 106/51 Blood Pressure 108/51 O2 Sat by Pulse Oximetry 95 Oriented: Normal Eyes: Normal Ear: Normal Nose: Normal Throat: Normal Respiratory: RLL Diminished, LLL Diminished Cardiovascular: Edema : Normal Auscultation: Bowel Sounds: Normal Palpation: Normal Tenderness: Normal Skin: Red, Tender, Hot Musculoskeletal: Right, Left, Leg, Tender Psychiatric: Anxiety, Other (HX MR) Mood Description: Anxious Affect: Anxious Speech Pattern: Clear - Assessment/Plan (1) Hypotension Status: Acute Plan: ADMIT, ICU TITRATE DOPAMINE DRIP. ROWE CATH CARE, STRICT I & OS. CONTINUOUS HAND BENDER, SUPPLEMENTAL O2. ADMISSION LABS. VERIFY HOME MEDICATION, BLOOD CULTURES COLLECTED ON ADMISSION (2) Cellulitis of both lower extremities Status: Acute (3) History of seizures Status: Chronic (4) History of breast cancer Status: Chronic (5) Hypothyroidism Status: Chronic (6) GERD (gastroesophageal reflux disease) Status: Chronic (7) Anxiety Status: Chronic - Allergies Allergies/Adverse Reactions: Allergies Allergy/AdvReac Type Severity Reaction Status Date / Time simvastatin Allergy Verified 01/05/19 17:43
--- NOTE | 2019-02-04 12:51 | PCM.PROG ---
Progress Note - Progress Note for Day of Date of Exam: 02/04/19 - Subjective Subjective: 68 WF ER ADMISSION WITH BP CONTROL, CURRENTLY ON DOPAMINE DRIP AT 10MCG, BP 151/67, PLAN TO DECREASE RATE. PT HAS BILATERAL LOWER EXT REDNESS AND SWELLING, WILL GIVE LOW DOSE OF LASIX WITH BP MONITORING. START IV TEFLARO. REPEAT AM LABS. RESUME HOME MAINTENANCE MEDICATION. REPEAT AM CXR, LOWER EXTREMITY DOPPLERS - Past Medical Family Social History Past Med/Fam/Surg Hx: No changes since H&P Allergies: Allergies simvastatin Allergy (Verified 01/05/19 17:43) - Review of Systems ROS: No change since H&P - Vital Signs and I&O's Vital Signs: Temperature 99.0 F Pulse Rate [Right Brachial] 94 Pulse Rate 77 Respiratory Rate 24 Blood Pressure [Right Arm] 151/67 Blood Pressure [Left Arm] 106/51 Blood Pressure 108/51 O2 Sat by Pulse Oximetry 95 Intake and Output: Intake & Output 02/02/19 02/03/19 02/04/19 02/05/19 11:59 11:59 11:59 11:59 Intake Total 2741.4 / 2741.4 Output Total 2600 / 2600 Balance 141.4 / 141.4 - Physical Exam Oriented: Normal Eyes: Normal Ear: Normal Nose: Normal Throat: Normal Respiratory: Diminished Cardiovascular: Edema : Normal Auscultation: Bowel Sounds: Normal Tenderness: Normal Skin: Red, Tender, Hot Musculoskeletal: Right, Left, Leg, Tender Psychiatric: Anxiety, Other (HX MR) Mood Description: Anxious Affect: Anxious Speech Pattern: Clear - Laboratory and Diagnostics Result Diagrams: 02/04/19 05:19 02/04/19 05:19 Labs: Laboratory WBC 5.6 X10^3/uL (3.6-10.0) 02/04/19 05:19 RBC 3.56 X10^6/uL (3.5-5.4) 02/04/19 05:19 Hgb 11.3 g/dL (12.0-16.0) L 02/04/19 05:19 Hct 32.6 % (36.0-47.0) L 02/04/19 05:19 MCV 91.6 fL (80.0-100.0) 02/04/19 05:19 MCH 31.7 pg (27.0-34.0) 02/04/19 05:19 MCHC 34.7 g/dL (33.0-35.0) 02/04/19 05:19 RDW 14.8 % (11.6-16.5) 02/04/19 05:19 Plt Count 140 X10^3/uL (150.0-450.0) L 02/04/19 05:19 Plt Count Comment Adequate (ADEQUATE) 02/04/19 05:19 MPV 8.0 fL (7.4-11.0) 02/04/19 05:19 Neut % (Auto) 91.1 % (42.0-75.0) H 02/04/19 05:19 Lymph % (Auto) 5.3 % (21.0-51.0) L 02/04/19 05:19 [place] % (Auto) 2.3 % (0.0-13.0) 02/04/19 05:19 Eos % (Auto) 1.2 % (0.9-2.9) 02/04/19 05:19 Baso % (Auto) 0.1 % (0.2-1.0) L 02/04/19 05:19 Neut # (Auto) 5.1 x10^3/uL (2.2-4.8) H 02/04/19 05:19 Lymph # (Auto) 0.3 X10^3/uL (1.3-2.9) L 02/04/19 05:19 [place] # (Auto) 0.1 x10^3/uL (0.3-0.8) L 02/04/19 05:19 Eos # (Auto) 0.1 x10^3/uL (0.0-0.2) 02/04/19 05:19 Baso # (Auto) 0.0 X10^3/uL (0.0-0.1) 02/04/19 05:19 Absolute Nucleated RBC 0.0 /100WBC 02/04/19 05:19 Total Counted 100 02/04/19 05:19 Neutrophils % (Manual) 70 % (39-76) 02/04/19 05:19 Band Neutrophils % 18 % (0-10) H 02/04/19 05:19 Lymphocytes % (Manual) 11 % (13-43) L 02/04/19 05:19 Monocytes % (Manual) 1 % (4-9) L 02/04/19 05:19 Plt Morphology Comment Normal (NORMAL) 02/04/19 05:19 RBC Morphology Normal (NORMAL) 02/04/19 05:19 INR Target Range - 02/03/19 10:15 INR 1.34 (0.8-1.3) H 02/03/19 10:15 APTT 33.5 SECONDS (22.9-36.5) 02/03/19 10:15 PTT Comment - 02/03/19 10:15 Sodium 133 mmol/L (136-145) L 02/04/19 05:19 Corrected Sodium TNP 02/04/19 05:19 Potassium 3.7 mmol/L (3.5-5.1) 02/04/19 05:19 Chloride 100 mmol/L (98-107) 02/04/19 05:19 Carbon Dioxide 24.5 mmol/L (21-32) 02/04/19 05:19 BUN 25 mg/dL (7-18) H 02/04/19 05:19 Creatinine 1.03 mg/dL (0.55-1.02) H 02/04/19 05:19 Est GFR (MDRD) Af Amer > 60 (>60) 02/04/19 05:19 Est GFR (MDRD) Non-Af 56 (>60) L 02/04/19 05:19 Glucose 109 mg/dL (65-99) H 02/04/19 05:19 Lactic Acid 2.5 mmol/L (0.4-2.0) H 02/03/19 10:15 Calcium 8.4 mg/dL (8.5-10.1) L 02/04/19 05:19 Corrected Calcium 9.9 mg/dL (8.5-10.1) 02/04/19 05:19 Magnesium 1.4 mg/dL (1.7-2.9) L 02/03/19 10:15 Total Bilirubin 0.50 mg/dL (0.2-1.0) 02/04/19 05:19 AST 7 Units/L (15-37) L 02/04/19 05:19 ALT 9 Units/L (12-78) L 02/04/19 05:19 Alkaline Phosphatase 59 Units/L (46-116) 02/04/19 05:19 Creatine Kinase 119 Units/L (26-192) 02/03/19 10:15 CK-MB (CK-2) 1.2 ng/mL (0-4.0) 02/03/19 10:15 CK/CKMB % Calc 1.0 % (<4) 02/03/19 10:15 Troponin I 0.00 ng/mL (0-1.5) 02/03/19 10:15 C-Reactive Protein 209.40 mg/L (0-3.0) H 02/03/19 10:15 Total Protein 5.8 g/dL (6.4-8.2) L 02/04/19 05:19 Albumin 2.1 g/dL (3.4-5.0) L 02/04/19 05:19 Globulin 3.7 g/dL (2.5-4.5) 02/04/19 05:19 Albumin/Globulin Ratio 0.6 Ratio (1.1-2.1) L 02/04/19 05:19 Specimen Type Catherized urine 02/03/19 11:55 Urine Color Straw (YELLOW) 02/03/19 11:55 Urine Appearance Slightly hazy (CLEAR) 02/03/19 11:55 Urine pH 5.0 (5.0 - 8.0) 02/03/19 11:55 Ur Specific [place] 1.015 (1.000-1.030) 02/03/19 11:55 Urine Protein 2+ (NEGATIVE) 02/03/19 11:55 Urine Glucose (UA) Negative (NEGATIVE) 02/03/19 11:55 Urine Ketones 1+ (NEGATIVE) 02/03/19 11:55 Urine Occult Blood 1+ (NEGATIVE) 02/03/19 11:55 Urine Nitrite Negative (NEGATIVE) 02/03/19 11:55 Urine Bilirubin 1+ (NEGATIVE) 02/03/19 11:55 Urine Urobilinogen 1+ (NORMAL) 02/03/19 11:55 Ur Leukocyte Esterase 1+ (NEGATIVE) 02/03/19 11:55 Urine RBC 0-2 /HPF (NONE SEEN) 02/03/19 11:55 Urine WBC None seen /HPF (NONE SEEN) 02/03/19 11:55 Ur Squamous Epith Cells Rare /HPF (NEGATIVE) 02/03/19 11:55 Amorphous Sediment Trace /HPF (NEGATIVE) 02/03/19 11:55 Urine Bacteria Negative /HPF (NEGATIVE) 02/03/19 11:55 Hyaline Casts Rare /LPF (NEGATIVE) 02/03/19 11:55 Urine Mucus Moderate /HPF (NEGATIVE) 02/03/19 11:55 Ur Culture Indicated? No/not indicated 02/03/19 11:55 - Plan (1) Hypotension Status: Acute Plan: ICU TITRATE DOPAMINE DRIP. ROWE CATH CARE, STRICT I & OS. CONTINUOUS CREDIT RESOLUTION REPRESENTATIVE, SUPPLEMENTAL O2. ADMISSION LABS. VERIFY HOME MEDICATION, BLOOD CULTURES COLLECTED ON ADMISSION (2) Cellulitis of both lower extremities Status: Acute Plan: IV TERLARO (3) History of seizures Status: Chronic (4) History of breast cancer Status: Chronic (5) Hypothyroidism Status: Chronic (6) GERD (gastroesophageal reflux disease) Status: Chronic (7) Anxiety Status: Chronic (8) Pulmonary edema Status: Acute Plan: MILD INTERSITIAL ANEMIA, IV LASIX WITH STRICT I & OS AND BP CONTROL
[2019-02-04] MEDS: LASIX IVP SCH ×2 (13:24→20:15)
[2019-02-04] MEDS: PLAVIX PO SCH (13:25)
[2019-02-04] MEDS: INDERAL TAB 10 MG PO SCH ×2 (13:26→21:10)
[2019-02-04] MEDS: DEPAKOTE ER PO SCH ×2 (13:26→20:14)
[2019-02-04] MEDS: ABILIFY PO SCH (13:27)
[2019-02-04] MEDS: TEFLARO 600 MG in NS 100 ML IV + SPIKE MINIBAG* 100 ML IV SCH ×2 (13:28→20:15)
--- NOTE | 2019-02-04 15:47 | VAS ---
HISTORY: Bilateral calf redness. Cellulitis. Study: Bilateral lower extremity duplex venous ultrasound. Comparison: 09/06/2018. TECHNIQUE: Multiple alexander scale and color flow Doppler images of the deep venous system were obtained of the right and left lower extremity. FINDINGS: The deep venous system of the right and left lower extremities were evaluated from the level of the common femoral vein through the popliteal vein. Normal color flow and augmentation can be observed. In addition, normal compression is seen throughout the deep venous system. IMPRESSION: Negative for bilateral lower extremity DVT. Reported By:
[2019-02-04] MEDS: LIPITOR TAB 20 MG PO SCH (20:15)
[2019-02-04] MEDS ORDERED: PATIENT'S HOME MEDICATION (Melatonin [Melatonin] 10 MG) PO SCH (21:00)
[2019-02-04] MEDS ORDERED: NS 1000 ML 1,000 ML IV ONE (23:06)
[2019-02-04] MEDS ORDERED: LANOXIN INJ ONE (23:08)
[2019-02-04] MEDS: LANOXIN INJ IVP SCH (23:14)
[2019-02-05] MEDS ORDERED: LANOXIN INJ IVP ONE (01:15)
[2019-02-05] MEDS ORDERED: NEXTERONE IV 150 MG PREMIX* 150 MG/100 ML BAG IV ONE (01:17)
[2019-02-05] MEDS ORDERED: NEXTERONE IV 150 MG PREMIX* 150 MG/100 ML BAG ONE (01:18)
[2019-02-05] MEDS: NEXTERONE IV 360 MG PREMIX* 360 MG/200 ML BAG ONE ×2 (01:41→08:30)
[2019-02-05] MEDS: NS 1000 ML 1,000 ML IV SCH ×4 (01:41→22:04)
[2019-02-05] MEDS ORDERED: NEXTERONE IV 360 MG PREMIX* 360 MG/200 ML BAG IV PRN (01:41)
[2019-02-05] MEDS ORDERED: HEPARIN SODIUM IN D5W 25,000 UNITS/500 ML BAG ONE (01:59)
[2019-02-05] MEDS ORDERED: HEPARIN SODIUM INJ 5000 UNITS IVP ONE ×2 (02:14→08:54)
[2019-02-05] MEDS ORDERED: HEPARIN SODIUM INJ 5000 UNITS ONE ×2 (02:15→08:57)
[2019-02-05] MEDS: HEPARIN SODIUM IN D5W 25,000 UNITS/500 ML BAG IV PRN ×2 (02:25→22:45)
[2019-02-05 04:14] LABS: CRYPTOSPORIDIUM PARVUM ANTIGEN NEGATIVE (NEGATIVE); GIARDIA LAMBLIA ANTIGEN NEGATIVE (NEGATIVE)
[2019-02-05 04:15] LABS: STOOL FOR WBC NEGATIVE (NEGATIVE)
[2019-02-05] MEDS: LANOXIN INJ IVP SCH (05:15)
[2019-02-05] MEDS ORDERED: TOBRAMYCIN SULFATE ONE (05:16)
[2019-02-05] MEDS ORDERED: NS 100 ML IV + SPIKE MINIBAG* 0 ML ONE (05:16)
[2019-02-05] MEDS ORDERED: NS 100 ML IV 100 ML ONE (05:17)
[2019-02-05] MEDS: INDERAL TAB 10 MG PO SCH ×3 (05:23→22:04)
[2019-02-05] MEDS ORDERED: NS 250 ML IV 250 ML ONE (05:24)
[2019-02-05] MEDS: NS 250 ML IV 250 ML IV SCH ×2 (05:25→19:06)
[2019-02-05] MEDS ORDERED: TOBRAMYCIN SULFATE 80 MG in NS 100 ML IV 98 ML IV SCH (06:00)
[2019-02-05] MEDS ORDERED: LEXAPRO ONE (07:05)
[2019-02-05] MEDS ORDERED: NEXTERONE IV 360 MG PREMIX* 360 MG/200 ML BAG ONE (08:06)
[2019-02-05 08:28] LABS: BASOPHILS % (AUTO) 0.2 % (0.2-1.0); EOSINOPHILS # (AUTO) 0.2 x10^3/uL (0.0-0.2); EOSINOPHILS % (AUTO) 3.1 % (0.9-2.9); HEMATOCRIT 29.8 % (36.0-47.0); HEMOGLOBIN 10.2 g/dL (12.0-16.0); LYMPHOCYTES # (AUTO) 0.6 X10^3/uL (1.3-2.9); LYMPHOCYTES % (AUTO) 7.5 % (21.0-51.0); MEAN CORPUSCULAR HEMOGLOBIN 31.5 pg (27.0-34.0); MEAN CORPUSCULAR HGB CONC 34.2 g/dL (33.0-35.0); MONOCYTES # (AUTO) 0.3 x10^3/uL (0.3-0.8); MONOCYTES % (AUTO) 4.2 % (0.0-13.0); NEUTROPHILS # (AUTO) 6.3 x10^3/uL (2.2-4.8); PLATELET COUNT 114 X10^3/uL (150.0-450.0); RED BLOOD COUNT 3.24 X10^6/uL (3.5-5.4); RED CELL DISTRIBUTION WIDTH 15.2 % (11.6-16.5); WHITE BLOOD COUNT 7.4 X10^3/uL (3.6-10.0)
[2019-02-05] MEDS: ZYVOX 600MG IV 600 MG/300 ML BAG IV SCH ×2 (08:33→20:48)
[2019-02-05] MEDS: ABILIFY PO SCH (08:34)
[2019-02-05] MEDS: PriLOSEC PO SCH (08:36)
[2019-02-05 08:39] LABS: ALANINE AMINOTRANSFERASE 14 Units/L (12-78); ALBUMIN 1.7 g/dL (3.4-5.0); ALKALINE PHOSPHATASE 50 Units/L (46-116); ASPARTATE AMINO TRANSFERASE 11 Units/L (15-37); BLOOD UREA NITROGEN 23 mg/dL (7-18); CHLORIDE 101 mmol/L (98-107); COR CA(FOR HYPOALB) 9.8 mg/dL (8.5-10.1); CREATININE 1.13 mg/dL (0.55-1.02); SODIUM 134 mmol/L (136-145); TOTAL PROTEIN 5.2 g/dL (6.4-8.2); eGFR NON BLACK RACES 51 (>60)
[2019-02-05] MEDS: PLAVIX PO SCH (08:40)
[2019-02-05] MEDS: NORCO 5/325 MG TAB PO PRN ×2 (08:40→20:46)
[2019-02-05] MEDS ORDERED: POTASSIUM CHLORIDE LIQ 20 MEQ UDC PO PRN (10:44)
[2019-02-05] MEDS ORDERED: KLOR-CON PO PRN (10:44)
[2019-02-05] MEDS ORDERED: K-RIDER 10 MEQ/NS 100 ML 10 MEQ/100 ML BAG IV PRN (10:44)
[2019-02-05] MEDS ORDERED: K-DUR TAB 20 MEQ PO PRN (10:44)
[2019-02-05] MEDS ORDERED: MICRO K EXTEN CAP 10 MEQ PO PRN (10:44)
[2019-02-05] MEDS ORDERED: POTASSIUM CHL 60 MEQ/NS 0.45% 500 ML IV PRN (10:44)
[2019-02-05] MEDS ORDERED: POTASSIUM CHL 40 MEQ/NS 0.45% 500 ML IV PRN (10:44)
[2019-02-05] MEDS ORDERED: MAGNESIUM SULFATE 1 GRAM/100 mL PREMIX 1 G/100 ML BAG IV ONE (12:23)
[2019-02-05] MEDS: MAGNESIUM SULFATE 1 GRAM/100 mL PREMIX 1 GM/100 ML BAG IV PRN ×4 (12:30→17:36)
[2019-02-05] MEDS: DEPAKOTE ER PO SCH ×2 (12:36→20:42)
[2019-02-05] MEDS: SYNTHROID 50 mcg TAB PO SCH (12:36)
[2019-02-05] MEDS: LEXAPRO PO SCH (12:37)
[2019-02-05] MEDS: LIPITOR TAB 20 MG PO SCH (20:42)
[2019-02-05] MEDS: NS IV SCH (20:45)
[2019-02-05] MEDS: TOBRAMYCIN SULFATE IV SCH (20:45)
[2019-02-06] MEDS: NS 1000 ML 1,000 ML IV SCH ×3 (05:23→21:49)
[2019-02-06] MEDS: INDERAL TAB 10 MG PO SCH ×3 (05:27→21:48)
[2019-02-06 07:23] LABS: BASOPHILS % (AUTO) 0.2 % (0.2-1.0); EOSINOPHILS # (AUTO) 0.3 x10^3/uL (0.0-0.2); EOSINOPHILS % (AUTO) 4.7 % (0.9-2.9); HEMATOCRIT 31.6 % (36.0-47.0); HEMOGLOBIN 10.6 g/dL (12.0-16.0); LYMPHOCYTES # (AUTO) 0.6 X10^3/uL (1.3-2.9); LYMPHOCYTES % (AUTO) 8.1 % (21.0-51.0); MEAN CORPUSCULAR HEMOGLOBIN 31.4 pg (27.0-34.0); MEAN CORPUSCULAR HGB CONC 33.7 g/dL (33.0-35.0); MEAN PLATELET VOLUME 8.3 fL (7.4-11.0); MONOCYTES # (AUTO) 0.4 x10^3/uL (0.3-0.8); MONOCYTES % (AUTO) 5.6 % (0.0-13.0); NEUTROPHILS # (AUTO) 5.7 x10^3/uL (2.2-4.8); NEUTROPHILS % (AUTO) 81.4 % (42.0-75.0); PLATELET COUNT 133 X10^3/uL (150.0-450.0); RED BLOOD COUNT 3.39 X10^6/uL (3.5-5.4); RED CELL DISTRIBUTION WIDTH 14.8 % (11.6-16.5)
[2019-02-06 07:27] LABS: ALANINE AMINOTRANSFERASE 19 Units/L (12-78); ALBUMIN 1.9 g/dL (3.4-5.0); ALKALINE PHOSPHATASE 57 Units/L (46-116); ASPARTATE AMINO TRANSFERASE 10 Units/L (15-37); BLOOD UREA NITROGEN 20 mg/dL (7-18); CALCIUM 8.3 mg/dL (8.5-10.1); CARBON DIOXIDE 24.9 mmol/L (21-32); CHLORIDE 98 mmol/L (98-107); CREATININE 0.94 mg/dL (0.55-1.02); SODIUM 131 mmol/L (136-145); eGFR NON BLACK RACES > 60 (>60)
[2019-02-06] MEDS ORDERED: LEXAPRO ONE (08:23)
[2019-02-06] MEDS: ABILIFY PO SCH (08:28)
[2019-02-06] MEDS: PriLOSEC PO SCH (08:28)
[2019-02-06] MEDS: LEXAPRO PO SCH (08:29)
[2019-02-06] MEDS: CORDARONE TAB 200 MG PO SCH (08:29)
[2019-02-06] MEDS: DEPAKOTE ER PO SCH ×2 (08:29→20:31)
[2019-02-06] MEDS: NS 250 ML IV 250 ML IV SCH ×2 (08:30→20:32)
[2019-02-06] MEDS: SYNTHROID 50 mcg TAB PO SCH (08:30)
[2019-02-06] MEDS: PLAVIX PO SCH (08:30)
[2019-02-06] MEDS: ZYVOX 600MG IV 600 MG/300 ML BAG IV SCH ×2 (08:32→21:48)
[2019-02-06] MEDS: ASPIRIN EC 81 MG PO SCH (11:14)
--- NOTE | 2019-02-06 13:58 | PCM.PROG ---
Progress Note - Progress Note for Day of Date of Exam: 02/06/19 - Subjective Subjective: IS BEING TREATED FOR LOWER EXTREMITY CELLULITIS R/O SEPSIS, HYPONATREMIA, AND PRERENAL AZOTEMIA. SHE WAS HYPOTENSIVE ON ADMISSION, BUT THAT HAS RESOLVED. SHE REMAINS ON A HEPARIN DRIP FOR DVT PROPHYLAXIS. TODAY, SHE IS ALERT AND ORIENTED, LYING IN BED ON MORNING ROUNDS. SHE CONTINUES WITH BILATERAL LOWER EXTREMITY CELLULITIS AND LEG PAIN. LOWER EXTREMITIES ARE NOTED WITH 2+ PITTING EDEMA TODAY. HER VITALS THIS MORNING ARE 97.9-74-18-100%-105/52. LABS WERE OBTAINED. ABNORMAL LAB VALUES INCLUDE THE FOLLOWING: RC 3.39, HGB 10.6, HCT 31.6, SODIUM 131, BUN 20, CALCIUM 8.3, AST 10, TOTAL PROTEIN 6.0, ALBUMIN 1.9. BLOOD AND STOOL CULTURES PENDING. SHE IS CURRENTLY RECEIVING IV ZYVOX AND TOBRAMYCIN. WE WILL CONTINUE WITH THESE TODAY. WE WILL DISCONTINUE THE HEPARIN DRIP AND START ECOTRIN 81MG PO DAILY. OTHERWISE, WE WILL FOLLOW UP WITH AM LABS AND CONTINUE TO MONITOR. - Past Medical Family Social History Past Med/Fam/Surg Hx: No changes since H&P Allergies: Allergies simvastatin Allergy (Verified 01/05/19 17:43) - Review of Systems ROS: No change since H&P - Vital Signs and I&O's Vital Signs: Temperature 97.4 F Pulse Rate [Right Brachial] 73 Pulse Rate 67 Respiratory Rate 14 Blood Pressure [Right Arm] 143/61 Blood Pressure [Left Arm] 106/51 Blood Pressure 108/51 O2 Sat by Pulse Oximetry 100 Intake and Output: Intake & Output 02/04/19 02/05/19 02/06/19 02/07/19 11:59 11:59 11:59 11:59 Intake Total 2884.0 / 2884.0 4543 / 4543 5331 / 5331 Output Total 2600 / 2600 3500 / 3500 750 / 750 Balance 284.0 / 284.0 1043 / 1043 4581 / 4581 - Physical Exam Oriented: Normal Eyes: Normal Ear: Normal Nose: Normal Throat: Normal Respiratory: Diminished Cardiovascular: Edema (LE 2+ PITTING EDEMA ) : Normal Auscultation: Bowel Sounds: Normal Palpation: Normal Tenderness: Normal Skin: Red, Tender, Hot Musculoskeletal: Right, Left, Leg, Tender Psychiatric: Anxiety, Other (HX MR) Mood Description: Anxious Affect: Anxious Speech Pattern: Clear, Appropriate - Laboratory and Diagnostics Result Diagrams: 02/06/19 07:07 02/06/19 07:07 Labs: 02/05/19 03:22 Stool Stool Culture - Preliminary 02/05/19 03:22 Stool - Final 02/03/19 11:00 Blood Blood Culture - Preliminary 02/03/19 10:21 Blood Blood Culture - Preliminary Laboratory WBC 7.0 X10^3/uL (3.6-10.0) 02/06/19 07:07 RBC 3.39 X10^6/uL (3.5-5.4) L 02/06/19 07:07 Hgb 10.6 g/dL (12.0-16.0) L 02/06/19 07:07 Hct 31.6 % (36.0-47.0) L 02/06/19 07:07 MCV 93.0 fL (80.0-100.0) 02/06/19 07:07 MCH 31.4 pg (27.0-34.0) 02/06/19 07:07 MCHC 33.7 g/dL (33.0-35.0) 02/06/19 07:07 RDW 14.8 % (11.6-16.5) 02/06/19 07:07 Plt Count 133 X10^3/uL (150.0-450.0) L 02/06/19 07:07 Plt Count Comment Adequate (ADEQUATE) 02/04/19 05:19 MPV 8.3 fL (7.4-11.0) 02/06/19 07:07 Neut % (Auto) 81.4 % (42.0-75.0) H 02/06/19 07:07 Lymph % (Auto) 8.1 % (21.0-51.0) L 02/06/19 07:07 [place] % (Auto) 5.6 % (0.0-13.0) 02/06/19 07:07 Eos % (Auto) 4.7 % (0.9-2.9) H 02/06/19 07:07 Baso % (Auto) 0.2 % (0.2-1.0) 02/06/19 07:07 Neut # (Auto) 5.7 x10^3/uL (2.2-4.8) H 02/06/19 07:07 Lymph # (Auto) 0.6 X10^3/uL (1.3-2.9) L 02/06/19 07:07 [place] # (Auto) 0.4 x10^3/uL (0.3-0.8) 02/06/19 07:07 Eos # (Auto) 0.3 x10^3/uL (0.0-0.2) H 02/06/19 07:07 Baso # (Auto) 0.0 X10^3/uL (0.0-0.1) 02/06/19 07:07 Absolute Nucleated RBC 0.0 /100WBC 02/06/19 07:07 Total Counted 100 02/04/19 05:19 Neutrophils % (Manual) 70 % (39-76) 02/04/19 05:19 Band Neutrophils % 18 % (0-10) H 02/04/19 05:19 Lymphocytes % (Manual) 11 % (13-43) L 02/04/19 05:19 Monocytes % (Manual) 1 % (4-9) L 02/04/19 05:19 Plt Morphology Comment Normal (NORMAL) 02/04/19 05:19 RBC Morphology Normal (NORMAL) 02/04/19 05:19 INR Target Range - 02/03/19 10:15 INR 1.34 (0.8-1.3) H 02/03/19 10:15 APTT 75.0 SECONDS (22.9-36.5) H 02/06/19 07:07 PTT Comment - 02/06/19 07:07 Sodium 131 mmol/L (136-145) L 02/06/19 07:07 Corrected Sodium TNP 02/06/19 07:07 Potassium 4.2 mmol/L (3.5-5.1) 02/06/19 07:07 Chloride 98 mmol/L (98-107) 02/06/19 07:07 Carbon Dioxide 24.9 mmol/L (21-32) 02/06/19 07:07 BUN 20 mg/dL (7-18) H 02/06/19 07:07 Creatinine 0.94 mg/dL (0.55-1.02) 02/06/19 07:07 Est GFR (MDRD) Af Amer > 60 (>60) 02/06/19 07:07 Est GFR (MDRD) Non-Af > 60 (>60) 02/06/19 07:07 Glucose 88 mg/dL (65-99) 02/06/19 07:07 Lactic Acid 2.5 mmol/L (0.4-2.0) H 02/03/19 10:15 Calcium 8.3 mg/dL (8.5-10.1) L 02/06/19 07:07 Corrected Calcium 10.0 mg/dL (8.5-10.1) 02/06/19 07:07 Magnesium 2.0 mg/dL (1.7-2.9) 02/06/19 07:07 Total Bilirubin 0.20 mg/dL (0.2-1.0) 02/06/19 07:07 AST 10 Units/L (15-37) L 02/06/19 07:07 ALT 19 Units/L (12-78) 02/06/19 07:07 Alkaline Phosphatase 57 Units/L (46-116) 02/06/19 07:07 Creatine Kinase 119 Units/L (26-192) 02/03/19 10:15 CK-MB (CK-2) 1.2 ng/mL (0-4.0) 02/03/19 10:15 CK/CKMB % Calc 1.0 % (<4) 02/03/19 10:15 Troponin I 0.00 ng/mL (0-1.5) 02/03/19 10:15 C-Reactive Protein 209.40 mg/L (0-3.0) H 02/03/19 10:15 Total Protein 6.0 g/dL (6.4-8.2) L 02/06/19 07:07 Albumin 1.9 g/dL (3.4-5.0) L 02/06/19 07:07 Globulin 4.1 g/dL (2.5-4.5) 02/06/19 07:07 Albumin/Globulin Ratio 0.5 Ratio (1.1-2.1) L 02/06/19 07:07 Specimen Type Catherized urine 02/03/19 11:55 Urine Color Straw (YELLOW) 02/03/19 11:55 Urine Appearance Slightly hazy (CLEAR) 02/03/19 11:55 Urine pH 5.0 (5.0 - 8.0) 02/03/19 11:55 Ur Specific [place] 1.015 (1.000-1.030) 02/03/19 11:55 Urine Protein 2+ (NEGATIVE) 02/03/19 11:55 Urine Glucose (UA) Negative (NEGATIVE) 02/03/19 11:55 Urine Ketones 1+ (NEGATIVE) 02/03/19 11:55 Urine Occult Blood 1+ (NEGATIVE) 02/03/19 11:55 Urine Nitrite Negative (NEGATIVE) 02/03/19 11:55 Urine Bilirubin 1+ (NEGATIVE) 02/03/19 11:55 Urine Urobilinogen 1+ (NORMAL) 02/03/19 11:55 Ur Leukocyte Esterase 1+ (NEGATIVE) 02/03/19 11:55 Urine RBC 0-2 /HPF (NONE SEEN) 02/03/19 11:55 Urine WBC None seen /HPF (NONE SEEN) 02/03/19 11:55 Ur Squamous Epith Cells Rare /HPF (NEGATIVE) 02/03/19 11:55 Amorphous Sediment Trace /HPF (NEGATIVE) 02/03/19 11:55 Urine Bacteria Negative /HPF (NEGATIVE) 02/03/19 11:55 Hyaline Casts Rare /LPF (NEGATIVE) 02/03/19 11:55 Urine Mucus Moderate /HPF (NEGATIVE) 02/03/19 11:55 Ur Culture Indicated? No/not indicated 02/03/19 11:55 Stool Description 25 g.br.semi-formed 02/05/19 03:22 Stl Occult Blood (IFOB) Negative (NEGATIVE) 02/05/19 03:22 Stool for White Cells Negative (NEGATIVE) 02/05/19 03:22 Stl C. diff Tox B Gene Negative (NEGATIVE) 02/05/19 03:22 Stl C. diff [id number] Negative (NEGATIVE) 02/05/19 03:22 Cryptosporid parvum Ag Negative (NEGATIVE) 02/05/19 03:22 Giardia lamblia Ag Negative (NEGATIVE) 02/05/19 03:22 - Plan (1) Lower extremity cellulitis Status: Acute Qualifiers: Laterality: unspecified laterality Qualified Code(s): L03.119 - Cellulitis of unspecified part of limb Plan: CONTINUE IV ANTIBIOTICS (2) Acute hyponatremia Status: Acute Plan: CONTINUE IV HYDRATION (3) Acute prerenal azotemia Status: Acute Plan: CONTINUE IV HYDRATION
[2019-02-06] MEDS: LIPITOR TAB 20 MG PO SCH (20:31)
[2019-02-06] MEDS: NS IV SCH (20:33)
[2019-02-06] MEDS: TOBRAMYCIN SULFATE IV SCH (20:33)
[2019-02-07] MEDS: INDERAL TAB 10 MG PO SCH ×2 (06:05→13:07)
[2019-02-07] MEDS: NS 1000 ML 1,000 ML IV SCH ×2 (06:05→13:07)
[2019-02-07 06:11] LABS: BASOPHILS % (AUTO) 0.3 % (0.2-1.0); EOSINOPHILS # (AUTO) 0.3 x10^3/uL (0.0-0.2); EOSINOPHILS % (AUTO) 3.9 % (0.9-2.9); HEMOGLOBIN 10.6 g/dL (12.0-16.0); LYMPHOCYTES # (AUTO) 0.5 X10^3/uL (1.3-2.9); LYMPHOCYTES % (AUTO) 8.2 % (21.0-51.0); MEAN CORPUSCULAR HEMOGLOBIN 31.5 pg (27.0-34.0); MEAN CORPUSCULAR HGB CONC 34.2 g/dL (33.0-35.0); MEAN CORPUSCULAR VOLUME 91.9 fL (80.0-100.0); MEAN PLATELET VOLUME 8.2 fL (7.4-11.0); MONOCYTES # (AUTO) 0.6 x10^3/uL (0.3-0.8); MONOCYTES % (AUTO) 9.6 % (0.0-13.0); NEUTROPHILS # (AUTO) 5.1 x10^3/uL (2.2-4.8); PLATELET COUNT 129 X10^3/uL (150.0-450.0); RED BLOOD COUNT 3.37 X10^6/uL (3.5-5.4); RED CELL DISTRIBUTION WIDTH 15.1 % (11.6-16.5); WHITE BLOOD COUNT 6.6 X10^3/uL (3.6-10.0)
[2019-02-07 06:21] LABS: ALANINE AMINOTRANSFERASE 15 Units/L (12-78); ALBUMIN 1.8 g/dL (3.4-5.0); ALKALINE PHOSPHATASE 59 Units/L (46-116); ASPARTATE AMINO TRANSFERASE 7 Units/L (15-37); BLOOD UREA NITROGEN 15 mg/dL (7-18); CALCIUM 8.7 mg/dL (8.5-10.1); CHLORIDE 101 mmol/L (98-107); COR CA(FOR HYPOALB) 10.5 mg/dL (8.5-10.1); CREATININE 0.83 mg/dL (0.55-1.02); SODIUM 133 mmol/L (136-145); TOTAL PROTEIN 5.7 g/dL (6.4-8.2); eGFR NON BLACK RACES > 60 (>60)
[2019-02-07 06:50] LABS: BAND NEUTROPHILS % 4 % (0-10); PLATELET MORPHOLOGY COMMENT NORMAL (NORMAL)
[2019-02-07] MEDS ORDERED: LEXAPRO ONE (09:02)
[2019-02-07] MEDS: ZYVOX 600MG IV 600 MG/300 ML BAG IV SCH (09:11)
[2019-02-07] MEDS: DEPAKOTE ER PO SCH (09:13)
[2019-02-07] MEDS: CORDARONE TAB 200 MG PO SCH (09:14)
[2019-02-07] MEDS: ASPIRIN EC 81 MG PO SCH (09:14)
[2019-02-07] MEDS: PriLOSEC PO SCH (09:14)
[2019-02-07] MEDS: SYNTHROID 50 mcg TAB PO SCH (09:14)
[2019-02-07] MEDS: PLAVIX PO SCH (09:15)
[2019-02-07] MEDS: LEXAPRO PO SCH (09:15)
[2019-02-07] MEDS: ABILIFY PO SCH (09:16)
[2019-02-07] MEDS: NS 250 ML IV 250 ML IV SCH (09:16)
[2019-02-07 15:05] VITALS: BP 115/54
== END 2019-02-07 15:35 | disposition home or self-care (01) | DRG 315 ==
LOC: ER 09:33 → ICU 13:21
PROVIDERS: ADMIT Internal Medicine; ATTEND Internal Medicine
DX: E03.8 Other specified hypothyroidism; R06.02 Shortness of breath; R60.0 Localized edema; Z85.3 Personal history of malignant neoplasm of breast; R53.83 Other fatigue; I95.89 Other hypotension; R26.89 Other abnormalities of gait and mobility; R79.89 Other specified abnormal findings of blood chemistry; K21.9 Gastro-esophageal reflux disease without esophagitis; R79.1 Abnormal coagulation profile; R79.82 Elevated C-reactive protein (CRP); L03.115 Cellulitis of right lower limb; F41.8 Other specified anxiety disorders; Z90.12 Acquired absence of left breast and nipple; R94.4 Abnormal results of kidney function studies; E87.1 Hypo-osmolality and hyponatremia; I10 Essential (primary) hypertension; L03.116 Cellulitis of left lower limb
CPT/HCPCS: 36415; 51702; 71010; 71045; 80053; 81001; 82270; 82550; 82553; 83605; 83630; 83735; 84132; 84484; 85025; 85610; 85730; 86140; 87040; 87045; 87328; 87329; 87427; 87449; 87493; 87899; 93005; 93970; 96365; 96367; 96374; 97116; 97162; 97166; 97535; 99231; 99285; A4216; A4222; J0282; J0400; J0696; J0712; J1160; J1265; J1644; J1940; J2020; J3260; J3475; J7030; J7050